=== PATIENT | male | born 1940 | race Two or more races ===

== ENCOUNTER 2017-01-06 11:50 | Inpatient (IN) | payer MEDICARE, MEDICAID ==
[~2017-01-06] VITALS: Ht 165.1 cm; Wt 80.7 kg
[~2017-01-06 11:50] MED LIST: ACTOS15 MG ORAL; AMARYL4 MG ORAL; AMLODIPINE-BEN1 EAC1 ORAL; CRESTOR20 MG ORAL; GABAPENTIN800 MG ORAL; HYDROCHLOROTH12.5 MG ORAL; JANUVIA100 MG ORAL; LOTREL 10-40 M1 EACH PO; METFORMIN HCL750 MG ORAL; PAMELOR10 MG ORAL; PRAVASTATIN SOD80 M1 PO; TAMSULOSIN HCL0.4 MG ORAL
--- NOTE | 2017-01-06 12:19 | Emergency Room Report ---
History of Present Illness General Chief Complaint: Pain Source: Patient (DONAL BACA D.O.) Present Illness HPI Patient presents with complaints of abdominal bloating and discomfort reports pain a 5/10 pressure in sensation patient also having low back discomfort and pain points to the lower back region up to the bilateral flank Reports increased pain with movement patient was at primary physician office last week was put on antibiotics for a possible UTI however he is not sure about that Denies any vomiting or diarrhea denies any recent travel Denies any chest pain or shortness of breath denies any focal weakness (DONAL BACA D.O.) Allergies: Coded Allergies: ATORVASTATIN CALCIUM (Verified Adverse Reaction, MYAGLIA, 08/25/12) SIMVASTATIN (Verified Adverse Reaction, MYALGIA, 08/25/12) Patient History Past Medical History: see triage record Pertinent Family History: none Reviewed Nursing Documentation: PMH: Agreed, PSxH: Agreed (DONAL BACA D.O.) Nursing Documentation-PMH Past Medical History: No History, Except For Hx Hypertension: Yes Hx Asthma: No Hx Diabetes: Yes Hx Cancer: No Hx Gastrointestinal Problems: Yes Hx Neurological Problems: Yes Hx Peripheral Neuropathy: Yes Hx Headaches: Yes (DONAL BACA D.O.) Review of Systems All Other Systems: negative except mentioned in HPI (DONAL BACA D.O.) Physical Exam Vital Signs Date Time Temp Pulse Resp B/P (MAP) Pulse Ox O2 Delivery O2 Flow Rate FiO2 01/06/17 11:54 98.1 69 18 171/69 96 Room Air Sp02 EP Interpretation: reviewed, normal General Appearance: well appearing, no apparent distress Head: normocephalic, atraumatic Eyes: bilateral eye PERRL, bilateral eye EOMI ENT: hearing grossly normal, normal pharynx, TMs + canals normal, uvula midline Neck: full range of motion, supple, no meningismus, no bony tend Respiratory: lungs clear, normal breath sounds, no rhonchi, no respiratory distress, no retraction, no accessory muscle use Cardiovascular #1: normal peripheral pulses, regular rate, rhythm, no edema, no gallop, no JVD, no murmur Gastrointestinal: normal bowel sounds, non tender, soft, no mass, no organomegaly, non-distended, no guarding, no hernia, no pulsatile mass, no rebound Genitourinary: no CVA tenderness Musculoskeletal: normal inspection Neurologic: oriented x3, responsive, translator III-XII nml as tested, motor strength/ tone normal, sensory intact Psychiatric: mood/affect normal Skin: normal color, no rash, warm/dry, palpation normal Lymphatic: normal inspection, no adenopathy (DONAL BACA D.O.) Medical Decision Making Diagnostic Impression: Primary Impression: Renal failure Additional Impressions: Hyperkalemia Metastatic lung cancer (metastasis from lung to other site) ER Course Multiple differentials considered including but not limited to, gastrointestinal , vascular, infectious pathology Patient's blood work reveals abnormal kidney function Potassium is also altered and elevated CT imaging initially was going to be obtained with contrast however given the patient's kidney function is obtained without contrast this can limits vascular findings and differentials Patient otherwise remains hemodynamically stable Potassium is acutely treated in the emergency room CT imaging shows concerning findings of metastatic disease Patient will require further inpatient care And patient admitted for further care Labs Test 01/06/17 12:00 01/06/17 12:21 Urine Color Yellow Urine Appearance Clear Urine pH 6 (4.5-8.0) Urine Specific [place] 1.010 (1.005-1.035) Urine Protein 3+ (NEGATIVE) Urine Glucose (UA) Negative (NEGATIVE) Urine Ketones Negative (NEGATIVE) Urine Occult Blood 1+ (NEGATIVE) Urine Nitrite Negative (NEGATIVE) Urine Bilirubin Negative (NEGATIVE) Urine Urobilinogen Normal MG/DL (0.0-1.0) Urine Leukocyte Esterase 1+ (NEGATIVE) Urine RBC 2-4 /HPF (0 - 0) Urine WBC 2-4 /HPF (0 - 0) Urine Squamous Epithelial Cells Occasional /LPF Urine Bacteria Occasional /HPF (NONE) White Blood Count 6.8 K/UL (4.8-10.8) Red Blood Count 4.51 M/UL (4.70-6.10) Hemoglobin 13.3 G/DL (14.2-18.0) Hematocrit 40.6 % (42.0-52.0) Mean Corpuscular Volume 90 FL (80-99) Mean Corpuscular Hemoglobin 29.4 PG (27.0-31.0) Mean Corpuscular Hemoglobin Concent 32.7 G/DL (32.0-36.0) Red Cell Distribution Width 13.4 % (11.6-14.8) Platelet Count 212 K/UL (150-450) Mean Platelet Volume 9.0 FL (6.5-10.1) Neutrophils (%) (Auto) 69.3 % (45.0-75.0) Lymphocytes (%) (Auto) 15.3 % (20.0-45.0) Monocytes (%) (Auto) 10.8 % (1.0-10.0) Eosinophils (%) (Auto) 3.9 % (0.0-3.0) Basophils (%) (Auto) 0.7 % (0.0-2.0) Prothrombin Time 10.4 SEC (9.30-11.50) Prothromb Time International Ratio 1.0 (0.9-1.1) Activated Partial Thromboplast Time 26 SEC (23-33) Sodium Level 137 mEQ/L (135-145) Potassium Level 5.1 mEQ/L (3.4-4.9) Chloride Level 98 mEQ/L (98-107) Carbon Dioxide Level 27 mEQ/L (20-30) Anion Gap 12 (5-15) Blood Urea Nitrogen 37 mg/dL (7-23) Creatinine 1.7 mg/dL (0.7-1.2) Estimat Glomerular Filtration Rate mL/min (>60) Glucose Level 195 mg/dL (74-106) Calcium Level 9.5 mg/dL (8.6-10.2) Total Bilirubin 0.4 mg/dL (0.0-1.2) Aspartate Amino Transf (AST/SGOT) 41 U/L (5-40) Alanine Aminotransferase (ALT/SGPT) 52 U/L (3-41) Alkaline Phosphatase 293 U/L (40-129) Total Creatine Kinase 44 U/L (38-174) Creatine Kinase MB < 1.5 ng/mL (< 6.7) Creatine Kinase MB Relative Index Troponin I < 0.30 ng/mL (<=0.30) Pro-B-Type Natriuretic Peptide 124 pg/mL (0-125) Total Protein 7.9 g/dL (6.6-8.7) Albumin 3.9 g/dL (3.5-5.2) Globulin 4.0 g/dL Albumin/Globulin Ratio 0.9 (1.0-2.7) Lipase 73 U/L (< 60) (DONAL BACA D.O.) ER Course Received signout 76-year-old male complaining of generalized abdominal pain Labs revealing mild hyperkalemia and acute renal failure CT abdomen pelvis performed No acute intra-abdominal surgical pathology, however suspicion of metastatic neoplasm involving the lungs Patient still complaining of abdominal pain, morphine given Patient will be admitted to floor (Hebert Martinez M.D.) Rhythm Strip Diag. Results EP Interpretation: yes Rate: 66 Rhythm: NSR, no PVC's, no ectopy (DONAL BACA D.O.) Chest X-Ray Diagnostic Results Chest X-Ray Diagnostic Results : Chest X-Ray Ordered: Yes # of Views/Limited/Complete: 1 View Indication: Chest Pain EP Interpretation: Yes Interpretation: no consolidation, no effusion, no pneumothorax Impression: No acute disease Electronically Signed by: Donal Baca DO (DONAL BACA D.O.) CT/MRI/US Diagnostic Results CT/MRI/US Diagnostic Results : Impression CT abdomen pelvis:Impression: Suspicion of metastatic neoplasm involving the lungs with multiple nodules seen. Contrast-enhanced CT of the chest is suggested for further evaluation. 1.6 cm hyperdense nodule in the left kidney. Proteinaceous cyst versus solid lesion. Contrast CT or MR recommended. Prostate hypertrophy. Bilateral inguinal hernias containing fat. Hiatal hernia. Thickened gallbladder wall nonspecific in nature. (DONAL BACA D.O.) Last Vital Signs Date Time Temp Pulse Resp B/P (MAP) Pulse Ox O2 Delivery O2 Flow Rate FiO2 01/06/17 11:54 98.1 69 18 171/69 96 Room Air Status: improved (DONAL BACA D.O.) Disposition: ADMITTED INPATIENT Condition: Serious DONAL BACA D.O. Jan 06, 2017 12:19 Hebert Martinez M.D. Jan 06, 2017 14:19
[2017-01-06 12:28] LABS: APPEARANCE,URINE CLEAR; KETONES,URINE NEGATIVE (NEGATIVE); LEUKOCYTE ESTERASE ,URINE 1+ (NEGATIVE); NITRITE,URINE NEGATIVE (NEGATIVE); PH,URINE 6 (4.5-8.0); PROTEIN,URINE 3+ (NEGATIVE); UROBILINOGEN,URINE NORMAL MG/DL (0.0-1.0)
[2017-01-06 12:35] LABS: BACTERIA,URINE OCCASIONAL /HPF; SQUAMOUS EPITHELIAL CELL,UR OCCASIONAL /LPF (NONE/OCC)
[2017-01-06 12:39] LABS: BASOPHILS % (AUTO) 0.7 % (0.0-2.0); EOSINOPHILS % (AUTO) 3.9 % (0.0-3.0); LYMPHOCYTES % (AUTO) 15.3 % (20.0-45.0); MEAN CORPUSCULAR HEMOGLOBIN 29.4 PG (27.0-31.0); MEAN CORPUSCULAR HGB CONC 32.7 G/DL (32.0-36.0); MEAN CORPUSCULAR VOLUME 90 FL (80-99); MONOCYTES % (AUTO) 10.8 % (1.0-10.0); NEUTROPHILS % (AUTO) 69.3 % (45.0-75.0); PLATELET COUNT 212 K/UL (150-450); RED BLOOD COUNT 4.51 M/UL (4.70-6.10); RED CELL DISTRIBUTION WIDTH 13.4 % (11.6-14.8); WHITE BLOOD COUNT 6.8 K/UL (4.8-10.8)
[2017-01-06 12:40] VITALS: BP 122/59
[2017-01-06] MEDS ORDERED: TRULICITY1.5 MG/0.5 SQ (12:43)
[2017-01-06] MEDS ORDERED: RANITIDINE HCL150 MG ORAL (12:43)
--- NOTE | 2017-01-06 12:46 | Diagnostic Imaging Report ---
Indication: Dyspnea Comparison: 08/25/12 A single view chest radiograph was obtained. Findings: No definite infiltrate or pulmonary vascular congestion identified. The heart is enlarged. The aorta is mildly enlarged consistent with atherosclerotic vascular disease. The bones are osteopenic. Impression: No acute disease
[2017-01-06 12:47] LABS: PROTHROMBIN TIME 10.4 SEC (9.30-11.50)
[2017-01-06 12:51] LABS: TROPONIN I < 0.30 ng/mL (<=0.30)
[2017-01-06 12:52] LABS: ALANINE AMINOTRANSFERASE 52 U/L (3-41); ALBUMIN/GLOBULIN RATIO 0.9 (1.0-2.7); ANION GAP 12 (5-15); ASPARTATE AMINO TRANSFERASE 41 U/L (5-40); CALCIUM 9.5 mg/dL (8.6-10.2); CARBON DIOXIDE 27 mEQ/L (20-30); CHLORIDE 98 mEQ/L (98-107); CREATININE 1.7 mg/dL (0.7-1.2); HEMOLYSIS 1; LIPASE 73 U/L (< 60); POTASSIUM 5.1 mEQ/L (3.4-4.9); SODIUM 137 mEQ/L (135-145); TOTAL PROTEIN 7.9 g/dL (6.6-8.7)
[2017-01-06 13:03] LABS: CKMB < 1.5 ng/mL (< 6.7)
[2017-01-06] MEDS ORDERED: Sodium Polystyrene Sulfonate 15gm Powder ORAL ONE (13:15)
--- NOTE | 2017-01-06 14:14 | Diagnostic Imaging Report ---
Indication: Abdominal pain Technique: Continuous helical transaxial imaging of the abdomen and pelvis was obtained from the lung bases to the pubic symphysis. No intravenous contrast was administered. Coronal 2-D reformats were also obtained. Total Dose length Product (DLP): [address] Dose Index Volume (CTDIvol): 18.4, 0.15 mGy Comparison: none Findings: There are multiple nodules within the visualized portions of the lower lung field. These are suspicious for metastatic neoplasm. Formal CT of the chest is suggested. The heart is enlarged. The liver is nodular and enlarged. Gallbladder wall is prominent. There is no nephrolithiasis, ascites or hydronephrosis. The prostate is enlarged measuring 5.6 x 6.7 x 5.5 cm. Bilateral inguinal hernias containing fat are noted. The appendix is normal. Diverticula noted in the colon. No evidence of bowel obstruction, free fluid or free air. In the left kidney there is a hyperdense nodule measuring 1.7 cm. This could be a proteinaceous or hemorrhagic cyst. This could be a solid focus or tumor. Further evaluation is recommended. In general the current study is limited with regard to evaluation of solid organs show inadequately evaluated without intravenous contrast. Small hiatal hernia is present. Impression: Suspicion of metastatic neoplasm involving the lungs with multiple nodules seen. Contrast-enhanced CT of the chest is suggested for further evaluation. 1.6 cm hyperdense nodule in the left kidney. Proteinaceous cyst versus solid lesion. Contrast CT or MR recommended. Prostate hypertrophy. Bilateral inguinal hernias containing fat. Hiatal hernia. Thickened gallbladder wall nonspecific in nature. The CT scanner at [facility] is accredited by the [employer] and the scans are performed using dose optimization techniques as appropriate to a performed exam including Automatic Exposure control.
[2017-01-06] MEDS ORDERED: Morphine Sulfate 4mg/ml Inj IVP ONE (14:30)
[2017-01-06] MEDS ORDERED: Acetaminophen 500mg (ES) tab ORAL ONE (14:45)
[2017-01-06] MEDS ORDERED: Miralax 17gm pkt ORAL PRN (15:30)
[2017-01-06] MEDS ORDERED: Morphine Sulfate 2mg/ml Inj IVP PRN (15:30)
[2017-01-06] MEDS ORDERED: Mylanta II UD 30ml ORAL PRN (15:30)
[2017-01-06] MEDS ORDERED: DuoNeb 0.5-3(2.5)mg/3ml neb HHN PRN (15:30)
[2017-01-06] MEDS ORDERED: Zolpidem 5mg tab ORAL PRN (15:30)
[2017-01-06 16:00] VITALS: BP 150/77
[2017-01-06] MEDS: NovoLOG Insulin Flexpen SUBQ SCH ×2 (16:30→20:57)
[2017-01-06 18:35] LABS: ANION GAP 13 (5-15); CALCIUM 9.4 mg/dL (8.6-10.2); CARBON DIOXIDE 27 mEQ/L (20-30); CHLORIDE 100 mEQ/L (98-107); CREATININE 1.4 mg/dL (0.7-1.2); HEMOLYSIS 0; POTASSIUM 4.4 mEQ/L (3.4-4.9); SODIUM 140 mEQ/L (135-145)
--- NOTE | 2017-01-06 19:43 | History & Physical ---
History and Physical History & Physicial Dictated for Int Med-Dr Sibley no. [id number]. DESMOND JAMES Jan 06, 2017 19:43
[2017-01-06 19:55] VITALS: BP 133/67
[2017-01-06] MEDS: Heparin 5000 units/ml inj SUBQ SCH (20:57)
[2017-01-06] MEDS ORDERED: Tamsulosin 0.4mg cap ORAL SCH (21:00)
[2017-01-06 23:28] LABS: PSA TOTAL 3.2 ng/mL (< 4.5)
[2017-01-06 23:52] VITALS: BP 142/73
[2017-01-07 02:10] LABS: BAND NEUTROPHILS % (MANUAL) 3 % (0-8); EOSINOPHILS % (MANUAL) 4 % (0-3); LYMPHOCYTES % (MANUAL) 16 % (20-45); NEUTROPHILS % (MANUAL) 69 % (45-75); TOTAL CELLS COUNTED 100
[2017-01-07 02:11] LABS: BASOPHILS % (MANUAL) 0 % (0-2); PLATELET ESTIMATE ADEQUATE; PLATELET MORPHOLOGY NORMAL
[2017-01-07 02:27] LABS: PATH BLOOD SMEAR/OMC SENT TO PATHOLOGIST
[2017-01-07 04:04] VITALS: BP 131/54
--- NOTE | 2017-01-07 04:45 | History and Physical Report ---
DATE OF ADMISSION: 01/06/2017 Chief Complaint: The patient is a 76-year-old male, who presents with complaint of abdominal pain and bloating for two weeks. History Of Present Illness: Began two weeks prior to admission, the patient began to experience abdominal pain and bloating. The patient denies nausea, vomiting, diarrhea, or constipation. The patient presented to [place] emergency room. The patient is admitted for abdominal distention to rule out small bowel obstruction. PAST MEDICAL HISTORY: Significant for: 1. Type 2 diabetes. 2. Hypertension. 3. Hypercholesterolemia. PAST SURGICAL HISTORY: Significant for: 1. Bilateral cataract surgery. 2. Colonoscopy three years ago. CURRENT MEDICATIONS: 1. Norvasc/benazepril 10/40 one tab p.o. daily. 2. Trulicity 1.5 mg subcutaneously daily. 3. Glimepiride 4 mg one tablet p.o. twice daily. 4. Hydrochlorothiazide 12.5 mg one tablet p.o. daily. 5. Metformin 750 mg one tablet p.o. twice daily. 6. Zantac 300 mg one tablet p.o. daily. 7. Crestor 20 mg one tablet p.o. daily. 8. Januvia 100 mg one tablet p.o. daily. 9. Flomax 0.4 mg one tablet p.o. at bedtime. ALLERGIES: To Lipitor and simvastatin. Social History: The patient is . The patient lives with his and his daughter. The patient denies tobacco use having quit 30 years ago. The patient admits to rare alcohol use. Review Of Systems: Constitutional: The patient denies weight loss or weight gain. The patient denies fevers or chills. HEENT: The patient denies ear or throat pain. The patient denies headache. Cardiovascular: The patient denies palpitations or chest pain. Chest: The patient denies wheeze or shortness of breath. Abdomen: The patient complains of abdominal pain and distention as above. The patient denies nausea, vomiting, diarrhea, or constipation. Genitourinary: The patient denies dysuria or increased frequency of urination. Neuromuscular: The patient denies seizures or generalized weakness. PHYSICAL EXAMINATION: Vital Signs: Temperature 98.1 degrees, respirations 18, pulse 69, and blood pressure 131/69. General: The patient is a well-developed and well-nourished male, in no apparent distress. HEENT: Eyes, pupils are equal and responsive to light and accommodation. Extraocular movements are intact. NECK: Supple without lymphadenopathy. Chest: Lungs are clear to auscultation bilaterally without wheezes or rales. Cardiovascular: Regular rate. S1 and S2 are normal without murmurs, rubs, or gallops. Abdomen: Soft and distended with decreased bowel sounds. No evidence of hepatosplenomegaly. Currently, no rebound or guarding noted. EXTREMITIES: Negative for clubbing, cyanosis, or edema. RECTAL/GENITAL: Refused. Neurologic: Cranial nerves II to XII are grossly intact without focal deficits. Motor strength is 5/5 bilaterally. Deep tendon reflexes are 2+ plantar. Laboratory Studies: WBC 6.8, hemoglobin 13.3, hematocrit 40.6, and platelets 212,000. Sodium 137, potassium 5.1, chloride 98, CO2 27, BUN 37, creatinine 1.7, and glucose 195. AST elevated at 41, ALT elevated at 52, and alkaline phosphatase elevated at 293. The CT scan of the abdomen is pending. ASSESSMENT: This is a 76-year-old male. 1. Abdominal pain. 2. Abdominal distention. 3. Elevated liver function tests. 4. Multiple lung masses per CT scan. 5. Renal failure. 6. Diabetes type 2. 7. Hypertension. 8. Hypercholesterolemia. TREATMENT: 1. Abdominal pain/abdominal bloating. A Gastroenterology consultation was obtained with Dr. Zelalem March. Given presence of lung masses on preliminary CT scan result, this may be metastatic cancer. Differential diagnosis includes colon versus renal carcinoma. 2. Multiple lung masses. An Oncology consultation was obtained with Dr. Geiger. The patient will require tissue biopsy. We will follow recommendations of Oncology. Lung mass appeared to be metastatic in nature. 3. Renal failure. This may be secondary to renal carcinoma versus acute renal failure. 4. Diabetes type 2. Continue Trulicity , glimepiride, and metformin as above. Metformin may be suspended secondary to elevated renal function test. 5. Hypertension. Continue Norvasc and benazepril as above. 6. Hypercholesterolemia. Continue Crestor as above. Manuelito Kimball M.D. DR: VAL JOB#: [id number] CC:
[2017-01-07] MEDS: NovoLOG Insulin Flexpen SUBQ SCH ×4 (06:09→21:00)
[2017-01-07 06:55] LABS: BASOPHILS % (AUTO) 0.5 % (0.0-2.0); EOSINOPHILS % (AUTO) 4.7 % (0.0-3.0); LYMPHOCYTES % (AUTO) 20.1 % (20.0-45.0); MEAN CORPUSCULAR HEMOGLOBIN 29.3 PG (27.0-31.0); MEAN CORPUSCULAR HGB CONC 32.4 G/DL (32.0-36.0); MEAN CORPUSCULAR VOLUME 90 FL (80-99); MEAN PLATELET VOLUME 9.3 FL (6.5-10.1); MONOCYTES % (AUTO) 11.9 % (1.0-10.0); NEUTROPHILS % (AUTO) 62.9 % (45.0-75.0); PLATELET COUNT 234 K/UL (150-450); RED BLOOD COUNT 4.72 M/UL (4.70-6.10); RED CELL DISTRIBUTION WIDTH 13.7 % (11.6-14.8); WHITE BLOOD COUNT 6.5 K/UL (4.8-10.8)
[2017-01-07 07:18] LABS: ALANINE AMINOTRANSFERASE 47 U/L (3-41); ALBUMIN/GLOBULIN RATIO 0.8 (1.0-2.7); ANION GAP 13 (5-15); ASPARTATE AMINO TRANSFERASE 38 U/L (5-40); CALCIUM 9.4 mg/dL (8.6-10.2); CARBON DIOXIDE 26 mEQ/L (20-30); CHLORIDE 101 mEQ/L (98-107); CHOLESTEROL 143 mg/dL (< 200); CHOLESTEROL/HDL RATIO 4.6 (3.3-4.4); CREATININE 1.4 mg/dL (0.7-1.2); HEMOLYSIS 2; LDL CHOLESTEROL (CALC.) 64 mg/dL (60-99); POTASSIUM 4.5 mEQ/L (3.4-4.9); SODIUM 140 mEQ/L (135-145); TOTAL PROTEIN 7.9 g/dL (6.6-8.7)
[2017-01-07 08:00] VITALS: BP 139/73
[2017-01-07] MEDS: Heparin 5000 units/ml inj SUBQ SCH ×2 (08:25→22:24)
[2017-01-07] MEDS ORDERED: Sodium Polystyrene Sulfonate 15gm Powder ORAL SCH (09:00)
--- NOTE | 2017-01-07 10:22 | GI Initial Consult Note ---
Gregg,Janie Wanoi N.P. 01/07/17 1022: History of Present Illness General Date patient seen: Jan 07, 2017 Time patient seen: 10:02 Reason for Hospitalization: Pain Referring physician: LELO FRANK Reason for Consultation: ABDOMINAL DISTENTION Present Illness HPI The patient is a 76-year-old male, who presents with complaint of abdominal pain and bloating for two weeks. Began two weeks prior to admission, the patient began to experience abdominal pain and bloating. The patient denies nausea, vomiting, diarrhea, or constipation. The patient presented to [facility] emergency room. The patient is admitted for abdominal distention to rule out small bowel obstruction. GI Consult. HPI as noted above. GI consulted for constipation and abdominal bloating with concern for bowel obstruction. Pt seen on floor with family at bedside A&Ox4 NAD with no active s/sx of N/V/D. Abdomen noted to be distended, tympanic and non tender all quads. Denies anhy abdominal pain at this time. Pt had BM this morning after given Kayexalate. CT AP shows multiple lung nodules, hypertrophic prostate and hiatal hernia, see full report. Per patient family, he's had a colonoscopy at [facility] approximately 3 years ago. Social drinker. Labs show elevated CEA and CA 19-9. Home Meds Reported Medications Dulaglutide (Trulicity) 1.5 Mg/0.5 Ml Pen.injctr, 1.5 MG SQ, EA 01/06/17 Ranitidine Hcl* (ZANTAC*) 150 Mg Tablet, 300 MG ORAL DAILY, TAB 01/06/17 Tamsulosin Hcl (TAMSULOSIN HCL*) 0.4 Mg Cap.er.24h, 0.4 MG ORAL BEDTIME, CAP 08/06/15 Rosuvastatin Calcium* (CRESTOR*) 20 Mg Tablet, 20 MG ORAL DAILY, TAB 08/06/15 Gabapentin* (GABAPENTIN*) 800 Mg Tablet, 800 MG ORAL THREE TIMES A DAY, #21 CAP 08/25/12 Amlodipine Besylate/Benazepril 10-40 Mg (LOTREL 10-40 MG CAPSULE) 1 Each Capsule , 1 CAP PO DAILY 08/25/12 Metformin Hcl (METFORMIN HCL ER) 750 Mg Tab.er.24h, 750 MG ORAL BID, TAB 08/25/12 Hydrochlorothiazide* (HYDROCHLOROTHIAZIDE*) 12.5 Mg Tablet, 12.5 MG ORAL DAILY, #30 TAB 08/25/12 Sitagliptin (Januvia) 100 Mg Tab, 100 MG ORAL DAILY, #30 TAB 08/25/12 Glimepiride* (AMARYL*) 4 Mg Tablet, 4 MG ORAL BID, #30 TAB 08/25/12 Discontinued Reported Medications Amlodipine Besylate/Benazepril 10-40 Mg (AMLODIPINE-BENAZEPRIL 10-40 MG) 1 Each Capsule, 1 CAP ORAL DAILY, CAP 08/06/15 Med list reviewed/reconciled: Yes Allergies: Coded Allergies: ATORVASTATIN CALCIUM (Verified Adverse Reaction, MYAGLIA, 08/25/12) SIMVASTATIN (Verified Adverse Reaction, MYALGIA, 08/25/12) Patient History PMH Narrative PAST MEDICAL HISTORY: Significant for: 1. Type 2 diabetes. 2. Hypertension. 3. Hypercholesterolemia. PAST SURGICAL HISTORY: Significant for: 1. Bilateral cataract surgery. 2. Colonoscopy three years ago. Social History: Reports: alcohol use Review of Systems All Other Systems: negative except mentioned in HPI Physical Exam Vital Signs Date Time Temp Pulse Resp B/P (MAP) Pulse Ox O2 Delivery O2 Flow Rate FiO2 01/06/17 11:54 98.1 69 18 171/69 96 Room Air Sp02 EP Interpretation: reviewed Labs Laboratory Tests Test 01/06/17 12:00 01/06/17 12:21 01/06/17 17:50 01/06/17 22:50 Urine Color Yellow Urine Appearance Clear Urine pH 6 (4.5-8.0) Urine Specific [facility] 1.010 (1.005-1.035) Urine Protein 3+ (NEGATIVE) H Urine Glucose (UA) Negative (NEGATIVE) Urine Ketones Negative (NEGATIVE) Urine Occult Blood 1+ (NEGATIVE) H Urine Nitrite Negative (NEGATIVE) Urine Bilirubin Negative (NEGATIVE) Urine Urobilinogen Normal MG/DL (0.0-1.0) Urine Leukocyte Esterase 1+ (NEGATIVE) H Urine RBC 2-4 /HPF (0 - 0) H Urine WBC 2-4 /HPF (0 - 0) Urine Squamous Epithelial Cells Occasional /LPF Urine Bacteria Occasional /HPF (NONE) White Blood Count 6.8 K/UL (4.8-10.8) Red Blood Count 4.51 M/UL (4.70-6.10) L Hemoglobin 13.3 G/DL (14.2-18.0) L Hematocrit 40.6 % (42.0-52.0) L Mean Corpuscular Volume 90 FL (80-99) Mean Corpuscular Hemoglobin 29.4 PG (27.0-31.0) Mean Corpuscular Hemoglobin Concent 32.7 G/DL (32.0-36.0) Red Cell Distribution Width 13.4 % (11.6-14.8) Platelet Count 212 K/UL (150-450) Mean Platelet Volume 9.0 FL (6.5-10.1) Neutrophils (%) (Auto) 69.3 % (45.0-75.0) Lymphocytes (%) (Auto) 15.3 % (20.0-45.0) L Monocytes (%) (Auto) 10.8 % (1.0-10.0) H Eosinophils (%) (Auto) 3.9 % (0.0-3.0) H Basophils (%) (Auto) 0.7 % (0.0-2.0) Differential Total Cells Counted 100 Neutrophils % (Manual) 69 % (45-75) Lymphocytes % (Manual) 16 % (20-45) L Monocytes % (Manual) 8 % (1-10) Eosinophils % (Manual) 4 % (0-3) H Basophils % (Manual) 0 % (0-2) Band Neutrophils 3 % (0-8) Platelet Estimate Adequate Platelet Morphology Normal Red Blood Cell Morphology Normal Prothrombin Time 10.4 SEC (9.30-11.50) Prothromb Time International Ratio 1.0 (0.9-1.1) Activated Partial Thromboplast Time 26 SEC (23-33) Sodium Level 137 mEQ/L (135-145) 140 mEQ/L (135-145) Potassium Level 5.1 mEQ/L (3.4-4.9) H 4.4 mEQ/L (3.4-4.9) Chloride Level 98 mEQ/L (98-107) 100 mEQ/L (98-107) Carbon Dioxide Level 27 mEQ/L (20-30) 27 mEQ/L (20-30) Anion Gap 12 (5-15) 13 (5-15) Blood Urea Nitrogen 37 mg/dL (7-23) H 33 mg/dL (7-23) H Creatinine 1.7 mg/dL (0.7-1.2) H 1.4 mg/dL (0.7-1.2) H Estimat Glomerular Filtration Rate mL/min (>60) mL/min (>60) Glucose Level 195 mg/dL (74-106) H 123 mg/dL (74-106) H Calcium Level 9.5 mg/dL (8.6-10.2) 9.4 mg/dL (8.6-10.2) Total Bilirubin 0.4 mg/dL (0.0-1.2) Aspartate Amino Transf (AST/SGOT) 41 U/L (5-40) H Alanine Aminotransferase (ALT/SGPT) 52 U/L (3-41) H Alkaline Phosphatase 293 U/L (40-129) H Total Creatine Kinase 44 U/L (38-174) Creatine Kinase MB < 1.5 ng/mL (< 6.7) Creatine Kinase MB Relative Index Troponin I < 0.30 ng/mL (<=0.30) Pro-B-Type Natriuretic Peptide 124 pg/mL (0-125) Total Protein 7.9 g/dL (6.6-8.7) Albumin 3.9 g/dL (3.5-5.2) Globulin 4.0 g/dL Albumin/Globulin Ratio 0.9 (1.0-2.7) L Lipase 73 U/L (< 60) H CA 19-9 Antigen 67.68 U/mL (< 37) H Prostate Specific Antigen 3.2 ng/mL (< 4.5) Test 01/07/17 04:45 White Blood Count 6.5 K/UL (4.8-10.8) Red Blood Count 4.72 M/UL (4.70-6.10) Hemoglobin 13.8 G/DL (14.2-18.0) L Hematocrit 42.6 % (42.0-52.0) Mean Corpuscular Volume 90 FL (80-99) Mean Corpuscular Hemoglobin 29.3 PG (27.0-31.0) Mean Corpuscular Hemoglobin Concent 32.4 G/DL (32.0-36.0) Red Cell Distribution Width 13.7 % (11.6-14.8) Platelet Count 234 K/UL (150-450) Mean Platelet Volume 9.3 FL (6.5-10.1) Neutrophils (%) (Auto) 62.9 % (45.0-75.0) Lymphocytes (%) (Auto) 20.1 % (20.0-45.0) Monocytes (%) (Auto) 11.9 % (1.0-10.0) H Eosinophils (%) (Auto) 4.7 % (0.0-3.0) H Basophils (%) (Auto) 0.5 % (0.0-2.0) Sodium Level 140 mEQ/L (135-145) Potassium Level 4.5 mEQ/L (3.4-4.9) Chloride Level 101 mEQ/L (98-107) Carbon Dioxide Level 26 mEQ/L (20-30) Anion Gap 13 (5-15) Blood Urea Nitrogen 29 mg/dL (7-23) H Creatinine 1.4 mg/dL (0.7-1.2) H Estimat Glomerular Filtration Rate mL/min (>60) Glucose Level 120 mg/dL (74-106) H Hemoglobin A1c 9.0 % (< 6.0) H Calcium Level 9.4 mg/dL (8.6-10.2) Total Bilirubin 0.4 mg/dL (0.0-1.2) Aspartate Amino Transf (AST/SGOT) 38 U/L (5-40) Alanine Aminotransferase (ALT/SGPT) 47 U/L (3-41) H Alkaline Phosphatase 301 U/L (40-129) H Total Protein 7.9 g/dL (6.6-8.7) Albumin 3.7 g/dL (3.5-5.2) Globulin 4.2 g/dL Albumin/Globulin Ratio 0.8 (1.0-2.7) L Triglycerides Level 240 mg/dL (< 150) H Cholesterol Level 143 mg/dL (< 200) LDL Cholesterol 64 mg/dL (60-99) HDL Cholesterol 31 mg/dL (> 60) Cholesterol/HDL Ratio 4.6 (3.3-4.4) H Carcinoembryonic Antigen 5.5 ng/mL H Thyroid Stimulating Hormone (TSH) 2.280 uIU/mL (0.300-4.500) Anti-Cardiolipin IgM Antibody Pending General Appearance: well appearing, no apparent distress, obese Head: normocephalic EENT: PERRL/EOMI, normal ENT inspection Neck: full range of motion, thyroid normal Respiratory: normal breath sounds, no respiratory distress Cardiovascular: normal rate Gastrointestinal: non tender, soft, normal bowel sounds Rectal: deferred Genitourinary: no CVA tenderness Musculoskeletal: back normal Neurologic: normal inspection, alert, oriented x3, responsive Psychiatric: normal inspection, judgement/insight normal, memory normal Skin: normal color Lymphatic: normal inspection, no adenopathy Current Medications Current Medications Medications (Trade) Dose Ordered Sig/Sylvie Route PRN Reason Start Time Stop Time Status Last Admin Dose Admin Acetaminophen (Tylenol) 650 mg Q4H PRN ORAL fever 01/06/17 15:30 02/05/17 15:29 Al Hydroxide/Mg Hydroxide (Mylanta II) 30 ml Q6H PRN ORAL dyspepsia 01/06/17 15:30 02/05/17 15:29 01/07/17 03:35 Albuterol/ Ipratropium (DuoNeb 0.5-3(2.5)mg/3ml) 3 ml Q6H PRN HHN dyspnea 01/06/17 15:30 01/11/17 15:29 Amlodipine Besylate (Norvasc) 10 mg DAILY ORAL 01/07/17 09:00 02/06/17 08:59 01/07/17 08:25 Clonidine HCl (Catapres) 0.1 mg Q4H PRN ORAL For High Blood Pressure 01/06/17 15:30 02/05/17 15:29 Dextrose (Dextrose 50%) STAT PRN IV Hypoglycemia 01/06/17 15:30 02/05/17 15:29 Gabapentin (Neurontin) 800 mg THREE TIMES A DAY ORAL 01/06/17 18:00 02/05/17 17:59 01/07/17 08:25 Heparin Sodium (Porcine) (Heparin 5000 units/ml) 5,000 units EVERY 12 HOURS SUBQ 01/06/17 21:00 02/05/17 20:59 01/06/17 20:57 Insulin Aspart (NovoLOG) BEFORE MEALS AND HS SUBQ 01/06/17 16:30 02/05/17 16:29 Morphine Sulfate (Morphine Sulfate) 1 mg Q4H PRN IVP For Pain 01/06/17 15:30 01/13/17 15:29 Ondansetron HCl (Zofran) 4 mg Q6H PRN IVP Nausea & Vomiting 01/06/17 15:30 02/05/17 15:29 Polyethylene Glycol (Miralax) 17 gm HSPRN PRN ORAL Constipation 01/06/17 15:30 02/05/17 15:29 Sodium Polystyrene Sulfonate (Kayexalate) 45 gm DAILY ORAL 01/07/17 09:00 01/10/17 08:59 01/07/17 08:23 Tamsulosin HCl (Flomax) 0.4 mg BEDTIME ORAL 01/06/17 21:00 02/05/17 20:59 01/06/17 20:53 Zolpidem Tartrate (Ambien) 5 mg HSPRN PRN ORAL Insomnia 01/06/17 15:30 01/13/17 15:29 GI: Plan Problems: (1) High serum carbohydrate antigen 19-9 (CA19-9) (2) Diabetes mellitus (3) GERD (gastroesophageal reflux disease) (4) Abdominal distention (5) Elevated CEA Plan CT AP reviewed >> multiple lung nodules. hypertrophic prostate. hiatal hernia , see full report. elevated CEA 5.5 elevated CA19-9 >> 70 s/p colonoscopy at [facility] approx 3 years ago >> will obtain records symptomatic treatment / supportive care fu oncology recs >> CT guided bx of lung nodule bowel regime >> colace + miralax simethicone prn renal DM diet after studies ppi fu labs Discussed with Dr. Pascual. Thank you for referring this patient, we will follow. ESAU PASCUAL 01/12/17 0940: History of Present Illness General Reason for Hospitalization: Pain Present Illness Home Meds Reported Medications Dulaglutide (Trulicity) 1.5 Mg/0.5 Ml Pen.injctr, 1.5 MG SQ, EA 01/06/17 Ranitidine Hcl* (ZANTAC*) 150 Mg Tablet, 300 MG ORAL DAILY, TAB 01/06/17 Tamsulosin Hcl (TAMSULOSIN HCL*) 0.4 Mg Cap.er.24h, 0.4 MG ORAL BEDTIME, CAP 08/06/15 Rosuvastatin Calcium* (CRESTOR*) 20 Mg Tablet, 20 MG ORAL DAILY, TAB 08/06/15 Gabapentin* (GABAPENTIN*) 800 Mg Tablet, 800 MG ORAL THREE TIMES A DAY, #21 CAP 08/25/12 Amlodipine Besylate/Benazepril 10-40 Mg (LOTREL 10-40 MG CAPSULE) 1 Each Capsule , 1 CAP PO DAILY 08/25/12 Metformin Hcl (METFORMIN HCL ER) 750 Mg Tab.er.24h, 750 MG ORAL BID, TAB 08/25/12 Hydrochlorothiazide* (HYDROCHLOROTHIAZIDE*) 12.5 Mg Tablet, 12.5 MG ORAL DAILY, #30 TAB 08/25/12 Sitagliptin (Januvia) 100 Mg Tab, 100 MG ORAL DAILY, #30 TAB 08/25/12 Glimepiride* (AMARYL*) 4 Mg Tablet, 4 MG ORAL BID, #30 TAB 08/25/12 Discontinued Reported Medications Amlodipine Besylate/Benazepril 10-40 Mg (AMLODIPINE-BENAZEPRIL 10-40 MG) 1 Each Capsule, 1 CAP ORAL DAILY, CAP 08/06/15 Allergies: Coded Allergies: ATORVASTATIN CALCIUM (Verified Adverse Reaction, MYAGLIA, 08/25/12) SIMVASTATIN (Verified Adverse Reaction, MYALGIA, 08/25/12) GI: Plan Plan The patient was seen and examined at bedside and all new and available data was reviewed in the patients chart. I agree with the above findings, impression and plan. (Patient seen earlier today. Signature stamp does not reflect patient encounter time.). -Christina Burch MDh Minh Zarco Jan 07, 2017 10:22 ESAU PASCUAL Jan 12, 2017 09:40
[2017-01-07] MEDS ORDERED: Simethicone 80mg tab ORAL PRN (10:30)
--- NOTE | 2017-01-07 11:26 | Consultation ---
History of Present Illness General Chief Complaint: Pain Referring physician: LELO FRANK Reason for Consultation: pulmonary nodule Present Illness HPI 76 year old male with pmhx of HTN, DM, presented to ER with complaints of abdominal bloating and discomfort reports pain a 5/10 pressure in sensation patient also having low back discomfort and pain points to the lower back region up to the bilateral flank. Initial evaluation including CT of abdomen showed multiple nodule in lower lobes of lungs. I was asked to evaluate those findings. Allergies: Coded Allergies: ATORVASTATIN CALCIUM (Verified Adverse Reaction, MYAGLIA, 08/25/12) SIMVASTATIN (Verified Adverse Reaction, MYALGIA, 08/25/12) Medication History Scheduled Amlodipine Besylate/Benazepril 10-40 Mg (Lotrel 10-40 Mg Capsule), 1 CAP PO DAILY, (Reported) Amlodipine Besylate/Benazepril 10-40 Mg (Amlodipine-Benazepril 10-40 Mg), 1 CAP ORAL DAILY, (Reported) Gabapentin* (Gabapentin*), 800 MG ORAL THREE TIMES A DAY, (Reported) Glimepiride* (Amaryl*), 4 MG ORAL BID, (Reported) Hydrochlorothiazide* (Hydrochlorothiazide*), 12.5 MG ORAL DAILY, (Reported) Metformin Hcl (Metformin Hcl Er), 750 MG ORAL BID, (Reported) Ranitidine Hcl* (Zantac*), 300 MG ORAL DAILY, (Reported) Rosuvastatin Calcium* (Crestor*), 20 MG ORAL DAILY, (Reported) Sitagliptin (Januvia), 100 MG ORAL DAILY, (Reported) Tamsulosin Hcl (Tamsulosin Hcl*), 0.4 MG ORAL BEDTIME, (Reported) Miscellaneous Medications Dulaglutide (Trulicity), 1.5 MG SQ, (Reported) Patient History Healthcare decision maker Resuscitation status Full Code Advanced Directive on File Past Medical/Surgical History Past Medical/Surgical History: (1) HTN (hypertension) (2) Diabetes (3) Diabetes mellitus Review of Systems All Other Systems: negative except mentioned in HPI Physical Exam General Appearance: WD/WN Lines, tubes and drains: peripheral HEENT: normocephalic Neck: non-tender, normal alignment Respiratory/Chest: chest wall non-tender, lungs clear Breasts: no masses Cardiovascular/Chest: normal rate Abdomen: normal bowel sounds Genitourinary/Rectal: normal genital exam Last 24 Hour Vital Signs Date Time Temp Pulse Resp B/P (MAP) Pulse Ox O2 Delivery O2 Flow Rate FiO2 01/07/17 08:25 71 139/73 01/07/17 08:00 71 01/07/17 08:00 97.2 71 21 139/73 93 Room Air 01/07/17 07:26 70 18 Room Air 01/07/17 04:04 98.2 72 20 131/54 96 Room Air 01/07/17 04:00 70 01/07/17 00:00 73 01/06/17 23:52 97.9 75 21 142/73 95 Room Air 01/06/17 20:00 71 01/06/17 19:55 97.3 70 20 133/67 97 Room Air 01/06/17 16:00 97.8 72 21 150/77 97 Room Air 01/06/17 16:00 69 01/06/17 15:00 71 14 140/68 95 Room Air 01/06/17 12:40 69 19 122/59 96 Room Air 01/06/17 11:54 98.1 69 18 171/69 96 Room Air Laboratory Tests Test 01/06/17 12:00 01/06/17 12:21 01/06/17 17:50 01/06/17 22:50 Urine Color Yellow Urine Appearance Clear Urine pH 6 (4.5-8.0) Urine Specific [place] 1.010 (1.005-1.035) Urine Protein 3+ (NEGATIVE) H Urine Glucose (UA) Negative (NEGATIVE) Urine Ketones Negative (NEGATIVE) Urine Occult Blood 1+ (NEGATIVE) H Urine Nitrite Negative (NEGATIVE) Urine Bilirubin Negative (NEGATIVE) Urine Urobilinogen Normal MG/DL (0.0-1.0) Urine Leukocyte Esterase 1+ (NEGATIVE) H Urine RBC 2-4 /HPF (0 - 0) H Urine WBC 2-4 /HPF (0 - 0) Urine Squamous Epithelial Cells Occasional /LPF Urine Bacteria Occasional /HPF (NONE) White Blood Count 6.8 K/UL (4.8-10.8) Red Blood Count 4.51 M/UL (4.70-6.10) L Hemoglobin 13.3 G/DL (14.2-18.0) L Hematocrit 40.6 % (42.0-52.0) L Mean Corpuscular Volume 90 FL (80-99) Mean Corpuscular Hemoglobin 29.4 PG (27.0-31.0) Mean Corpuscular Hemoglobin Concent 32.7 G/DL (32.0-36.0) Red Cell Distribution Width 13.4 % (11.6-14.8) Platelet Count 212 K/UL (150-450) Mean Platelet Volume 9.0 FL (6.5-10.1) Neutrophils (%) (Auto) 69.3 % (45.0-75.0) Lymphocytes (%) (Auto) 15.3 % (20.0-45.0) L Monocytes (%) (Auto) 10.8 % (1.0-10.0) H Eosinophils (%) (Auto) 3.9 % (0.0-3.0) H Basophils (%) (Auto) 0.7 % (0.0-2.0) Differential Total Cells Counted 100 Neutrophils % (Manual) 69 % (45-75) Lymphocytes % (Manual) 16 % (20-45) L Monocytes % (Manual) 8 % (1-10) Eosinophils % (Manual) 4 % (0-3) H Basophils % (Manual) 0 % (0-2) Band Neutrophils 3 % (0-8) Platelet Estimate Adequate Platelet Morphology Normal Red Blood Cell Morphology Normal Prothrombin Time 10.4 SEC (9.30-11.50) Prothromb Time International Ratio 1.0 (0.9-1.1) Activated Partial Thromboplast Time 26 SEC (23-33) Sodium Level 137 mEQ/L (135-145) 140 mEQ/L (135-145) Potassium Level 5.1 mEQ/L (3.4-4.9) H 4.4 mEQ/L (3.4-4.9) Chloride Level 98 mEQ/L (98-107) 100 mEQ/L (98-107) Carbon Dioxide Level 27 mEQ/L (20-30) 27 mEQ/L (20-30) Anion Gap 12 (5-15) 13 (5-15) Blood Urea Nitrogen 37 mg/dL (7-23) H 33 mg/dL (7-23) H Creatinine 1.7 mg/dL (0.7-1.2) H 1.4 mg/dL (0.7-1.2) H Estimat Glomerular Filtration Rate mL/min (>60) mL/min (>60) Glucose Level 195 mg/dL (74-106) H 123 mg/dL (74-106) H Calcium Level 9.5 mg/dL (8.6-10.2) 9.4 mg/dL (8.6-10.2) Total Bilirubin 0.4 mg/dL (0.0-1.2) Aspartate Amino Transf (AST/SGOT) 41 U/L (5-40) H Alanine Aminotransferase (ALT/SGPT) 52 U/L (3-41) H Alkaline Phosphatase 293 U/L (40-129) H Total Creatine Kinase 44 U/L (38-174) Creatine Kinase MB < 1.5 ng/mL (< 6.7) Creatine Kinase MB Relative Index Troponin I < 0.30 ng/mL (<=0.30) Pro-B-Type Natriuretic Peptide 124 pg/mL (0-125) Total Protein 7.9 g/dL (6.6-8.7) Albumin 3.9 g/dL (3.5-5.2) Globulin 4.0 g/dL Albumin/Globulin Ratio 0.9 (1.0-2.7) L Lipase 73 U/L (< 60) H CA 19-9 Antigen 67.68 U/mL (< 37) H Prostate Specific Antigen 3.2 ng/mL (< 4.5) Test 01/07/17 04:45 White Blood Count 6.5 K/UL (4.8-10.8) Red Blood Count 4.72 M/UL (4.70-6.10) Hemoglobin 13.8 G/DL (14.2-18.0) L Hematocrit 42.6 % (42.0-52.0) Mean Corpuscular Volume 90 FL (80-99) Mean Corpuscular Hemoglobin 29.3 PG (27.0-31.0) Mean Corpuscular Hemoglobin Concent 32.4 G/DL (32.0-36.0) Red Cell Distribution Width 13.7 % (11.6-14.8) Platelet Count 234 K/UL (150-450) Mean Platelet Volume 9.3 FL (6.5-10.1) Neutrophils (%) (Auto) 62.9 % (45.0-75.0) Lymphocytes (%) (Auto) 20.1 % (20.0-45.0) Monocytes (%) (Auto) 11.9 % (1.0-10.0) H Eosinophils (%) (Auto) 4.7 % (0.0-3.0) H Basophils (%) (Auto) 0.5 % (0.0-2.0) Sodium Level 140 mEQ/L (135-145) Potassium Level 4.5 mEQ/L (3.4-4.9) Chloride Level 101 mEQ/L (98-107) Carbon Dioxide Level 26 mEQ/L (20-30) Anion Gap 13 (5-15) Blood Urea Nitrogen 29 mg/dL (7-23) H Creatinine 1.4 mg/dL (0.7-1.2) H Estimat Glomerular Filtration Rate mL/min (>60) Glucose Level 120 mg/dL (74-106) H Hemoglobin A1c 9.0 % (< 6.0) H Calcium Level 9.4 mg/dL (8.6-10.2) Total Bilirubin 0.4 mg/dL (0.0-1.2) Aspartate Amino Transf (AST/SGOT) 38 U/L (5-40) Alanine Aminotransferase (ALT/SGPT) 47 U/L (3-41) H Alkaline Phosphatase 301 U/L (40-129) H Total Protein 7.9 g/dL (6.6-8.7) Albumin 3.7 g/dL (3.5-5.2) Globulin 4.2 g/dL Albumin/Globulin Ratio 0.8 (1.0-2.7) L Triglycerides Level 240 mg/dL (< 150) H Cholesterol Level 143 mg/dL (< 200) LDL Cholesterol 64 mg/dL (60-99) HDL Cholesterol 31 mg/dL (> 60) Cholesterol/HDL Ratio 4.6 (3.3-4.4) H Carcinoembryonic Antigen 5.5 ng/mL H Thyroid Stimulating Hormone (TSH) 2.280 uIU/mL (0.300-4.500) Anti-Cardiolipin IgM Antibody Pending Height (Feet): 5 Height (Inches): 5.00 Weight (Pounds): 178 Medications Current Medications Medications (Trade) Dose Ordered Sig/Sylvie Route PRN Reason Start Time Stop Time Status Last Admin Dose Admin Acetaminophen (Tylenol) 650 mg Q4H PRN ORAL fever 01/06/17 15:30 02/05/17 15:29 01/07/17 10:13 Acetylcysteine (Mucomyst) 600 mg TWICE A DAY ORAL 01/07/17 11:30 01/07/17 21:01 Al Hydroxide/Mg Hydroxide (Mylanta II) 30 ml Q6H PRN ORAL dyspepsia 01/06/17 15:30 02/05/17 15:29 01/07/17 03:35 Albuterol/ Ipratropium (DuoNeb 0.5-3(2.5)mg/3ml) 3 ml Q6H PRN HHN dyspnea 01/06/17 15:30 01/11/17 15:29 Amlodipine Besylate (Norvasc) 10 mg DAILY ORAL 01/07/17 09:00 02/06/17 08:59 01/07/17 08:25 Clonidine HCl (Catapres) 0.1 mg Q4H PRN ORAL For High Blood Pressure 01/06/17 15:30 02/05/17 15:29 Dextrose (Dextrose 50%) STAT PRN IV Hypoglycemia 01/06/17 15:30 02/05/17 15:29 Docusate Sodium (Colace) 100 mg THREE TIMES A DAY ORAL 01/07/17 13:00 02/06/17 12:59 Esomeprazole Sodium (Nexium I.v.) 40 mg ONCE ONCE IVP 01/07/17 12:00 01/07/17 12:01 Gabapentin (Neurontin) 800 mg THREE TIMES A DAY ORAL 01/06/17 18:00 02/05/17 17:59 01/07/17 08:25 Heparin Sodium (Porcine) (Heparin 5000 units/ml) 5,000 units EVERY 12 HOURS SUBQ 01/06/17 21:00 02/05/17 20:59 01/06/17 20:57 Insulin Aspart (NovoLOG) BEFORE MEALS AND HS SUBQ 01/06/17 16:30 02/05/17 16:29 Morphine Sulfate (Morphine Sulfate) 1 mg Q4H PRN IVP For Pain 01/06/17 15:30 01/13/17 15:29 Ondansetron HCl (Zofran) 4 mg Q6H PRN IVP Nausea & Vomiting 01/06/17 15:30 02/05/17 15:29 Polyethylene Glycol (Miralax) 17 gm BEDTIME ORAL 01/07/17 21:00 02/06/17 20:59 Polyethylene Glycol (Miralax) 17 gm HSPRN PRN ORAL Constipation 01/06/17 15:30 02/05/17 15:29 Simethicone (Mylicon) 80 mg QIDPRN PRN ORAL GAS PAIN 01/07/17 10:30 02/06/17 10:29 Sodium Polystyrene Sulfonate (Kayexalate) 45 gm DAILY ORAL 01/07/17 09:00 01/10/17 08:59 01/07/17 08:23 Tamsulosin HCl (Flomax) 0.4 mg BEDTIME ORAL 01/06/17 21:00 02/05/17 20:59 01/06/17 20:53 Zolpidem Tartrate (Ambien) 5 mg HSPRN PRN ORAL Insomnia 01/06/17 15:30 01/13/17 15:29 Assessment/Plan Problem List: (1) Pulmonary nodule ICD Codes: R91.1 - Solitary pulmonary nodule SNOMED: 834555000 (2) Renal failure ICD Codes: N19 - Unspecified kidney failure SNOMED: 72300677 (3) Hyperkalemia ICD Codes: E87.5 - Hyperkalemia SNOMED: 83003367 (4) Abdominal distention ICD Codes: R14.0 - Abdominal distension (gaseous) SNOMED: 89575194 (5) Diabetes mellitus ICD Codes: E11.9 - Type 2 diabetes mellitus without complications SNOMED: 28478808 (6) HTN (hypertension) ICD Codes: I10 - Essential (primary) hypertension SNOMED: 91516827 Assessment/Plan CT chest PPD GI evaluation symptomatic treatment dvt prophylaxis ANURADHA IYER Jan 07, 2017 11:26
[2017-01-07] MEDS ORDERED: Acetylcysteine 20% Soln 4ml ORAL SCH ×2 (11:30→18:00)
--- NOTE | 2017-01-07 11:32 | Pulmonology Progress Note ---
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 borderline high awaiting CT chest PPD skin Subjective Interval Events: no new complains Allergies: Coded Allergies: ATORVASTATIN CALCIUM (Verified Adverse Reaction, MYAGLIA, 08/25/12) SIMVASTATIN (Verified Adverse Reaction, MYALGIA, 08/25/12) Objective Last 24 Hour Vital Signs Date Time Temp Pulse Resp B/P (MAP) Pulse Ox O2 Delivery O2 Flow Rate FiO2 01/07/17 08:25 71 139/73 01/07/17 08:00 71 01/07/17 08:00 97.2 71 21 139/73 93 Room Air 01/07/17 07:26 70 18 Room Air 01/07/17 04:04 98.2 72 20 131/54 96 Room Air 01/07/17 04:00 70 01/07/17 00:00 73 01/06/17 23:52 97.9 75 21 142/73 95 Room Air 01/06/17 20:00 71 01/06/17 19:55 97.3 70 20 133/67 97 Room Air 01/06/17 16:00 97.8 72 21 150/77 97 Room Air 01/06/17 16:00 69 01/06/17 15:00 71 14 140/68 95 Room Air 01/06/17 12:40 69 19 122/59 96 Room Air 01/06/17 11:54 98.1 69 18 171/69 96 Room Air General Appearance: WD/WN HEENT: normocephalic, atraumatic Respiratory/Chest: chest wall non-tender, lungs clear Cardiovascular: normal peripheral pulses, normal rate Abdomen: normal bowel sounds, no organomegaly, no scars Genitourinary: normal external genitalia Skin: no rash, no lesions Laboratory Tests 01/06/17 12:00: Urine Color Yellow, Urine Appearance Clear, Urine pH 6, Urine Specific [place] 1.010, Urine Protein 3+H, Urine Glucose (UA) Negative, Urine Ketones Negative, Urine Occult Blood 1+H, Urine Nitrite Negative, Urine Bilirubin Negative, Urine Urobilinogen Normal, Urine Leukocyte Esterase 1+H, Urine RBC 2-4H, Urine WBC 2-4 , Urine Squamous Epithelial Cells Occasional, Urine Bacteria Occasional 01/06/17 12:21: White Blood Count 6.8, Red Blood Count 4.51L, Hemoglobin 13.3L, Hematocrit 40.6L , Mean Corpuscular Volume 90, Mean Corpuscular Hemoglobin 29.4, Mean Corpuscular Hemoglobin Concent 32.7, Red Cell Distribution Width 13.4, Platelet Count 212, Mean Platelet Volume 9.0, Neutrophils (%) (Auto) 69.3, Lymphocytes (% ) (Auto) 15.3L, Monocytes (%) (Auto) 10.8H, Eosinophils (%) (Auto) 3.9H, Basophils (%) (Auto) 0.7, Differential Total Cells Counted 100, Neutrophils % ( Manual) 69, Lymphocytes % (Manual) 16L, Monocytes % (Manual) 8, Eosinophils % ( Manual) 4H, Basophils % (Manual) 0, Band Neutrophils 3, Platelet Estimate Adequate, Platelet Morphology Normal, Red Blood Cell Morphology Normal, Prothrombin Time 10.4, Prothromb Time International Ratio 1.0, Activated Partial Thromboplast Time 26, Sodium Level 137, Potassium Level 5.1H, Chloride Level 98, Carbon Dioxide Level 27, Anion Gap 12, Blood Urea Nitrogen 37H, Creatinine 1.7H, Estimat Glomerular Filtration Rate , Glucose Level 195H, Calcium Level 9.5, Total Bilirubin 0.4, Aspartate Amino Transf (AST/SGOT) 41H, Alanine Aminotransferase (ALT/SGPT) 52H, Alkaline Phosphatase 293H, Total Creatine Kinase 44, Creatine Kinase MB < 1.5, Creatine Kinase MB Relative Index , Troponin I < 0.30, Pro-B-Type Natriuretic Peptide 124, Total Protein 7.9, Albumin 3.9, Globulin 4.0, Albumin/Globulin Ratio 0.9L, Lipase 73H 01/06/17 17:50: Sodium Level 140, Potassium Level 4.4, Chloride Level 100, Carbon Dioxide Level 27, Anion Gap 13, Blood Urea Nitrogen 33H, Creatinine 1.4H, Estimat Glomerular Filtration Rate , Glucose Level 123H, Calcium Level 9.4 01/06/17 22:50: CA 19-9 Antigen 67.68H, Prostate Specific Antigen 3.2 01/07/17 04:45: White Blood Count 6.5, Red Blood Count 4.72, Hemoglobin 13.8L, Hematocrit 42.6, Mean Corpuscular Volume 90, Mean Corpuscular Hemoglobin 29.3, Mean Corpuscular Hemoglobin Concent 32.4, Red Cell Distribution Width 13.7, Platelet Count 234, Mean Platelet Volume 9.3, Neutrophils (%) (Auto) 62.9, Lymphocytes (%) (Auto) 20.1, Monocytes (%) (Auto) 11.9H, Eosinophils (%) (Auto) 4.7H, Basophils (%) ( Auto) 0.5, Sodium Level 140, Potassium Level 4.5, Chloride Level 101, Carbon Dioxide Level 26, Anion Gap 13, Blood Urea Nitrogen 29H, Creatinine 1.4H, Estimat Glomerular Filtration Rate , Glucose Level 120H, Hemoglobin A1c 9.0H, Calcium Level 9.4, Total Bilirubin 0.4, Aspartate Amino Transf (AST/SGOT) 38, Alanine Aminotransferase (ALT/SGPT) 47H, Alkaline Phosphatase 301H, Total Protein 7.9, Albumin 3.7, Globulin 4.2, Albumin/Globulin Ratio 0.8L, Triglycerides Level 240H, Cholesterol Level 143, LDL Cholesterol 64, HDL Cholesterol 31, Cholesterol/HDL Ratio 4.6H, Carcinoembryonic Antigen 5.5H, Thyroid Stimulating Hormone (TSH) 2.280, Anti-Cardiolipin IgM Antibody [Pending] Current Medications Medications (Trade) Dose Ordered Sig/Sylvie Route PRN Reason Start Time Stop Time Status Last Admin Dose Admin Acetaminophen (Tylenol) 650 mg Q4H PRN ORAL fever 01/06/17 15:30 02/05/17 15:29 01/07/17 10:13 Acetylcysteine (Mucomyst) 600 mg TWICE A DAY ORAL 01/07/17 11:30 01/07/17 21:01 Al Hydroxide/Mg Hydroxide (Mylanta II) 30 ml Q6H PRN ORAL dyspepsia 01/06/17 15:30 02/05/17 15:29 01/07/17 03:35 Albuterol/ Ipratropium (DuoNeb 0.5-3(2.5)mg/3ml) 3 ml Q6H PRN HHN dyspnea 01/06/17 15:30 01/11/17 15:29 Amlodipine Besylate (Norvasc) 10 mg DAILY ORAL 01/07/17 09:00 02/06/17 08:59 01/07/17 08:25 Clonidine HCl (Catapres) 0.1 mg Q4H PRN ORAL For High Blood Pressure 01/06/17 15:30 02/05/17 15:29 Dextrose (Dextrose 50%) STAT PRN IV Hypoglycemia 01/06/17 15:30 02/05/17 15:29 Docusate Sodium (Colace) 100 mg THREE TIMES A DAY ORAL 01/07/17 13:00 02/06/17 12:59 Esomeprazole Sodium (Nexium I.v.) 40 mg ONCE ONCE IVP 01/07/17 12:00 01/07/17 12:01 Gabapentin (Neurontin) 800 mg THREE TIMES A DAY ORAL 01/06/17 18:00 02/05/17 17:59 01/07/17 08:25 Heparin Sodium (Porcine) (Heparin 5000 units/ml) 5,000 units EVERY 12 HOURS SUBQ 01/06/17 21:00 02/05/17 20:59 01/06/17 20:57 Insulin Aspart (NovoLOG) BEFORE MEALS AND HS SUBQ 01/06/17 16:30 02/05/17 16:29 Morphine Sulfate (Morphine Sulfate) 1 mg Q4H PRN IVP For Pain 01/06/17 15:30 01/13/17 15:29 Ondansetron HCl (Zofran) 4 mg Q6H PRN IVP Nausea & Vomiting 01/06/17 15:30 02/05/17 15:29 Polyethylene Glycol (Miralax) 17 gm BEDTIME ORAL 01/07/17 21:00 02/06/17 20:59 Polyethylene Glycol (Miralax) 17 gm HSPRN PRN ORAL Constipation 01/06/17 15:30 02/05/17 15:29 Simethicone (Mylicon) 80 mg QIDPRN PRN ORAL GAS PAIN 01/07/17 10:30 02/06/17 10:29 Sodium Polystyrene Sulfonate (Kayexalate) 45 gm DAILY ORAL 01/07/17 09:00 01/10/17 08:59 01/07/17 08:23 Tamsulosin HCl (Flomax) 0.4 mg BEDTIME ORAL 01/06/17 21:00 02/05/17 20:59 01/06/17 20:53 Zolpidem Tartrate (Ambien) 5 mg HSPRN PRN ORAL Insomnia 01/06/17 15:30 01/13/17 15:29 ANURADHA IYER Jan 07, 2017 11:32
--- NOTE | 2017-01-07 11:45 | Consultation ---
DATE OF CONSULTATION: 01/06/2017 HEMATOLOGY/ONCOLOGY CONSULTATION CONSULTING PHYSICIAN: Yemi Geiger M.D. REQUESTING PHYSICIAN: Manuelito Kimball M.D. Reason For Consultation: Evaluation of lung masses, evaluation of malignancy. IDENTIFICATION DATA: Dear Dr. Kimball, The patient is a pleasant 76-year-old male with past medical history, which is significant for hypertension, diabetes, and neurological headaches, at this time presents with bloating and abdominal pain for the past 15 days. He reports 5/10 pain, some cramping as well. In the ER, he had a CAT scan performed, which showed multiple lung masses, metastatic disease involving both lungs. The patient does not have a recorded history of malignancy. Hematology/Oncology service was consulted for evaluation and treatment. PAST MEDICAL HISTORY: As noted above. PAST SURGICAL HISTORY: None reported. ALLERGIES: Lipitor and Zocor. FAMILY HISTORY: Noncontributory. Review Of Systems: Constitutional: No fever, chills, or night sweats. Skin: No rashes, bumps, or itching. HEENT: No headache, hearing or vision changes. Breasts: No lumps, pain, or discharge. Pulmonary: No cough, sputum, or shortness of breath. Gastrointestinal: Some abdominal pain noted. Genitourinary: No dysuria, frequency, or urgency. Musculoskeletal: No joint swelling, muscle pain, or trauma. PHYSICAL EXAMINATION: GENERAL: The patient is in no acute distress. Vital Signs: Temperature 98 degrees Fahrenheit, pulse of 82, respiratory rate 12, blood pressure 133/67, and pulse oximetry 97% on room air. PULMONARY: Decreased breath sounds. CARDIOVASCULAR: Regular rate. No S3 or S4. ABDOMEN: Soft, nontender, and nondistended. EXTREMITIES: 1+ edema. Laboratory Data: alkaline phosphatase 293. Lipase 73. INR 1. WBC of 6.8, hemoglobin 13.3, and platelet count 203,000. Imaging: Abdomen and pelvis CAT scan shows nodule in the kidney, suspicious disease involving the lungs, multiple nodules, liver enlarged, and prostate enlarged. ASSESSMENT AND PLAN: 1. Metastatic malignancy, likely concerning for lung cancer. Obtain a biopsy. Order has been placed. In addition, obtain tumor markers. 2. Anemia secondary to chronic disease, mild at this time. 3. Abdominal pain, likely related to the patient's multiple lung masses. 4. Renal failure, hyperkalemia. Continue to closely monitor. 5. Lower back pain, likely related to malignancy. Obtain a biopsy first for further evaluation. I appreciate the consultation. Yemi Geiger M.D. DR: ALFRED JOB#: [id number] CC:
[2017-01-07 11:49] VITALS: BP 128/71
[2017-01-07] MEDS ORDERED: Esomeprazole sodium 40mg vial IVP ONE (12:00)
[2017-01-07 12:10] LABS: BASOPHILS % (AUTO) 0.9 % (0.0-2.0); EOSINOPHILS % (AUTO) 3.9 % (0.0-3.0); LYMPHOCYTES % (AUTO) 18.1 % (20.0-45.0); MEAN CORPUSCULAR HEMOGLOBIN 28.3 PG (27.0-31.0); MEAN CORPUSCULAR HGB CONC 31.6 G/DL (32.0-36.0); MEAN CORPUSCULAR VOLUME 90 FL (80-99); MEAN PLATELET VOLUME 8.4 FL (6.5-10.1); MONOCYTES % (AUTO) 12.8 % (1.0-10.0); NEUTROPHILS % (AUTO) 64.3 % (45.0-75.0); PLATELET COUNT 237 K/UL (150-450); RED BLOOD COUNT 4.85 M/UL (4.70-6.10); RED CELL DISTRIBUTION WIDTH 13.3 % (11.6-14.8); WHITE BLOOD COUNT 5.7 K/UL (4.8-10.8)
[2017-01-07] MEDS ORDERED: PPD Tuberculin Skin Test 5TU IDERMAL ONE (12:30)
[2017-01-07] MEDS ORDERED: Docusate 100mg cap ORAL SCH (13:00)
--- NOTE | 2017-01-07 13:28 | Consultation ---
Consult Note Consult Note The patient is a 76-year-old male, who presents with complaint of abdominal pain and bloating for two weeks. Began two weeks prior to admission, the patient began to experience abdominal pain and bloating. The patient denies nausea, vomiting, diarrhea, or constipation. The patient presented to [facility] emergency room. The patient is admitted for abdominal distention to rule out small bowel obstruction. GI Consult. HPI as noted above. GI consulted for constipation and abdominal bloating with concern for bowel obstruction. Pt seen on floor with family at bedside A&Ox4 NAD with no active s/sx of N/V/D. Abdomen noted to be distended, tympanic and non tender all quads. Denies anhy abdominal pain at this time. Pt had BM this morning after given Kayexalate. CT AP shows multiple lung nodules, hypertrophic prostate and hiatal hernia, see full report. Per patient family, he's had a colonoscopy at [facility] approximately 3 years ago. Social drinker. Labs show elevated CEA and CA 19-9. Meds, DIRECTOR LONG TERM CARE 1. Norvasc/benazepril 10/40 one tab p.o. daily. 2. Trulicity 1.5 mg subcutaneously daily. 3. Glimepiride 4 mg one tablet p.o. twice daily. 4. Hydrochlorothiazide 12.5 mg one tablet p.o. daily. 5. Metformin 750 mg one tablet p.o. twice daily. 6. Zantac 300 mg one tablet p.o. daily. 7. Crestor 20 mg one tablet p.o. daily. 8. Januvia 100 mg one tablet p.o. daily. 9. Flomax 0.4 mg one tablet p.o. at bedtime. Data reviewed- Patient interviewed and examined . Assessment/Plan Status: (1) Pulmonary nodule ? Mets- ---High CA-19-9 level (2) Renal failure Cr 1.7 now down to 1.4 ? Acute on chronic DM and HTN + Proteinuria) (3) Hyperkalemia, K of 5.1 on admit , now normalized (4) Abdominal distention , presentation symptom (5) Diabetes mellitus (6) HTN (hypertension) (7) High Cholestrol Plan: Per consultants- Hydrate- avoid nephrotoxics- Stop Metformin monitor renal parameters PAUL GORDILLO Jan 07, 2017 13:28
--- NOTE | 2017-01-07 16:48 | Internal Med Progress Note ---
Subjective Physician Name Good Sibley Attending Physician Good Sibley MD Current Medications Medications (Trade) Dose Ordered Sig/Sylvie Route PRN Reason Start Time Stop Time Status Last Admin Dose Admin Acetaminophen (Tylenol) 650 mg Q4H PRN ORAL T>100.5 01/07/17 17:00 02/05/17 16:59 Acetylcysteine (Mucomyst) 600 mg TWICE A DAY ORAL 01/07/17 18:00 01/07/17 18:01 Al Hydroxide/Mg Hydroxide (Mylanta II) 30 ml Q6H PRN ORAL dyspepsia 01/07/17 17:00 02/05/17 16:59 Albuterol/ Ipratropium (DuoNeb 0.5-3(2.5)mg/3ml) 3 ml Q6H PRN HHN dyspnea 01/07/17 17:00 01/11/17 16:59 Amlodipine Besylate (Norvasc) 10 mg DAILY ORAL 01/08/17 09:00 02/06/17 08:59 Clonidine HCl (Catapres) 0.1 mg Q4H PRN ORAL SBP>160mmHg 01/07/17 17:00 02/05/17 16:59 Dextrose (Dextrose 50%) STAT PRN IV Hypoglycemia 01/08/17 17:00 02/05/17 16:59 Docusate Sodium (Colace) 100 mg THREE TIMES A DAY ORAL 01/07/17 18:00 02/06/17 12:59 Gabapentin (Neurontin) 800 mg THREE TIMES A DAY ORAL 01/07/17 18:00 02/05/17 17:59 Heparin Sodium (Porcine) (Heparin 5000 units/ml) 5,000 units EVERY 12 HOURS SUBQ 01/07/17 21:00 02/05/17 20:59 Insulin Aspart (NovoLOG) BEFORE MEALS AND HS SUBQ 01/07/17 17:00 02/05/17 16:59 Morphine Sulfate (Morphine Sulfate) 1 mg Q4H PRN IVP PAIN 4-10 01/07/17 17:00 01/13/17 16:59 Ondansetron HCl (Zofran) 4 mg Q6H PRN IVP Nausea & Vomiting 01/07/17 17:00 02/05/17 16:59 Polyethylene Glycol (Miralax) 17 gm BEDTIME ORAL 01/07/17 21:00 02/06/17 20:59 Polyethylene Glycol (Miralax) 17 gm HSPRN PRN ORAL Constipation 01/08/17 21:00 02/05/17 20:59 Simethicone (Mylicon) 80 mg QIDPRN PRN ORAL GAS PAIN 01/07/17 17:00 02/06/17 16:59 Sodium Polystyrene Sulfonate (Kayexalate) 45 gm DAILY ORAL 01/08/17 09:00 01/11/17 08:59 UNV Tamsulosin HCl (Flomax) 0.4 mg BEDTIME ORAL 01/07/17 21:00 02/05/17 20:59 Zolpidem Tartrate (Ambien) 5 mg HSPRN PRN ORAL Insomnia 01/07/17 21:00 01/14/17 20:59 Allergies: Coded Allergies: ATORVASTATIN CALCIUM (Verified Adverse Reaction, MYAGLIA, 08/25/12) SIMVASTATIN (Verified Adverse Reaction, MYALGIA, 08/25/12) Subjective awake, alert, responsive, No abdomen pain, No Nausea or Vomiting Objective Last Vital Signs Date Time Temp Pulse Resp B/P (MAP) Pulse Ox O2 Delivery O2 Flow Rate FiO2 01/07/17 12:00 69 01/07/17 11:49 96.7 20 128/71 96 Room Air Laboratory Tests Test 01/06/17 17:50 01/06/17 22:50 01/07/17 04:45 01/07/17 11:14 Sodium Level 140 mEQ/L (135-145) 140 mEQ/L (135-145) Potassium Level 4.4 mEQ/L (3.4-4.9) 4.5 mEQ/L (3.4-4.9) Chloride Level 100 mEQ/L (98-107) 101 mEQ/L (98-107) Carbon Dioxide Level 27 mEQ/L (20-30) 26 mEQ/L (20-30) Anion Gap 13 (5-15) 13 (5-15) Blood Urea Nitrogen 33 mg/dL (7-23) H 29 mg/dL (7-23) H Creatinine 1.4 mg/dL (0.7-1.2) H 1.4 mg/dL (0.7-1.2) H Estimat Glomerular Filtration Rate mL/min (>60) mL/min (>60) Glucose Level 123 mg/dL (74-106) H 120 mg/dL (74-106) H Calcium Level 9.4 mg/dL (8.6-10.2) 9.4 mg/dL (8.6-10.2) CA 19-9 Antigen 67.68 U/mL (< 37) H Prostate Specific Antigen 3.2 ng/mL (< 4.5) White Blood Count 6.5 K/UL (4.8-10.8) Red Blood Count 4.72 M/UL (4.70-6.10) Hemoglobin 13.8 G/DL (14.2-18.0) L Hematocrit 42.6 % (42.0-52.0) Mean Corpuscular Volume 90 FL (80-99) Mean Corpuscular Hemoglobin 29.3 PG (27.0-31.0) Mean Corpuscular Hemoglobin Concent 32.4 G/DL (32.0-36.0) Red Cell Distribution Width 13.7 % (11.6-14.8) Platelet Count 234 K/UL (150-450) Mean Platelet Volume 9.3 FL (6.5-10.1) Neutrophils (%) (Auto) 62.9 % (45.0-75.0) Lymphocytes (%) (Auto) 20.1 % (20.0-45.0) Monocytes (%) (Auto) 11.9 % (1.0-10.0) H Eosinophils (%) (Auto) 4.7 % (0.0-3.0) H Basophils (%) (Auto) 0.5 % (0.0-2.0) Hemoglobin A1c 9.0 % (< 6.0) H Total Bilirubin 0.4 mg/dL (0.0-1.2) Aspartate Amino Transf (AST/SGOT) 38 U/L (5-40) Alanine Aminotransferase (ALT/SGPT) 47 U/L (3-41) H Alkaline Phosphatase 301 U/L (40-129) H Total Protein 7.9 g/dL (6.6-8.7) Albumin 3.7 g/dL (3.5-5.2) Globulin 4.2 g/dL Albumin/Globulin Ratio 0.8 (1.0-2.7) L Triglycerides Level 240 mg/dL (< 150) H Cholesterol Level 143 mg/dL (< 200) LDL Cholesterol 64 mg/dL (60-99) HDL Cholesterol 31 mg/dL (> 60) Cholesterol/HDL Ratio 4.6 (3.3-4.4) H Carcinoembryonic Antigen 5.5 ng/mL H Thyroid Stimulating Hormone (TSH) 2.280 uIU/mL (0.300-4.500) Anti-Cardiolipin IgM Antibody Pending TB Test (T-Spot) Pending TB Test Nil Control (T-Spot) Pending TB Test Panel A (T-Spot) Pending TB Test Panel B (T-Spot) Pending TB Test Positive Control (T-Spot) Pending Test 01/07/17 11:45 White Blood Count 5.7 K/UL (4.8-10.8) Red Blood Count 4.85 M/UL (4.70-6.10) Hemoglobin 13.7 G/DL (14.2-18.0) L Hematocrit 43.4 % (42.0-52.0) Mean Corpuscular Volume 90 FL (80-99) Mean Corpuscular Hemoglobin 28.3 PG (27.0-31.0) Mean Corpuscular Hemoglobin Concent 31.6 G/DL (32.0-36.0) L Red Cell Distribution Width 13.3 % (11.6-14.8) Platelet Count 237 K/UL (150-450) Mean Platelet Volume 8.4 FL (6.5-10.1) Neutrophils (%) (Auto) 64.3 % (45.0-75.0) Lymphocytes (%) (Auto) 18.1 % (20.0-45.0) L Monocytes (%) (Auto) 12.8 % (1.0-10.0) H Eosinophils (%) (Auto) 3.9 % (0.0-3.0) H Basophils (%) (Auto) 0.9 % (0.0-2.0) Lactate Dehydrogenase 320 U/L (135-230) H Blastomyces Ab Immunodiffusion Pending Cryptococcus Antigen Pending Histoplasma Mycelial Antibody Pending Histoplasma Antibody w Mycelial Ag Pending Histoplasma Antibody with Yeast Ag Pending Objective General: No acute distress, awake and alert HEENT: NCAT, sclera anicteric, PERRL, EOMI. Neck: Supple, no significant jugular venous distention, Lungs: Good inspiratory effort, no accessory muscle use, clear to auscultation bilaterally, no Wheeze or Rales. Heart: Regular rate and rhythm, normal S1/S2, no murmurs Abdomen: soft, nontender, nondistended. Normoactive bowel sounds. Obesity. / Rectal: Refused and deferred. Extremities: No Cyanosis , clubbing or edema. Neuro: A&O x 3, Able to move all extremities Psych: Normal mood and affect Assessment/Plan Assessment/Plan 1. Abdominal pain etiology? elevated CEA / CA 19-9 2. Morbid Obesity. 3. Elevated liver function tests. 4. Multiple lung Nodules 5. Renal failure. 6. Diabetes type 2. 7. Hypertension. 8. Hypercholesterolemia. Plan: transfer to respiratory Isolation F/U CT of chest Discuss with family members at bedside Heparin SQ Full code PPD placement Good Sibley MD Jan 07, 2017 16:48
[2017-01-07] MEDS ORDERED: DuoNeb 0.5-3(2.5)mg/3ml neb HHN PRN (17:00)
[2017-01-07] MEDS ORDERED: Morphine Sulfate 2mg/ml Inj IVP PRN (17:00)
[2017-01-07] MEDS: Docusate 100mg cap ORAL SCH (17:36)
[2017-01-07 19:54] VITALS: BP 145/77
[2017-01-07] MEDS ORDERED: Zolpidem 5mg tab ORAL PRN (21:00)
[2017-01-07] MEDS ORDERED: Miralax 17gm pkt ORAL SCH (21:00)
[2017-01-07] MEDS: Tamsulosin 0.4mg cap ORAL SCH (22:21)
[2017-01-07] MEDS: Miralax 17gm pkt ORAL SCH (22:22)
[2017-01-08] VITALS: BP 136/65
[2017-01-08 04:00] VITALS: BP 132/70
[2017-01-08] MEDS: NovoLOG Insulin Flexpen SUBQ SCH ×4 (06:30→20:27)
[2017-01-08 06:43] LABS: BASOPHILS % (AUTO) 0.9 % (0.0-2.0); LYMPHOCYTES % (AUTO) 15.6 % (20.0-45.0); MEAN CORPUSCULAR HEMOGLOBIN 27.4 PG (27.0-31.0); MEAN CORPUSCULAR HGB CONC 30.6 G/DL (32.0-36.0); MEAN CORPUSCULAR VOLUME 90 FL (80-99); MONOCYTES % (AUTO) 13.4 % (1.0-10.0); PLATELET COUNT 233 K/UL (150-450); RED BLOOD COUNT 5.08 M/UL (4.70-6.10); RED CELL DISTRIBUTION WIDTH 13.2 % (11.6-14.8); WHITE BLOOD COUNT 6.8 K/UL (4.8-10.8)
[2017-01-08 07:22] LABS: ALANINE AMINOTRANSFERASE 40 U/L (3-41); ANION GAP 11 (5-15); ASPARTATE AMINO TRANSFERASE 33 U/L (5-40); CALCIUM 9.6 mg/dL (8.6-10.2); CARBON DIOXIDE 30 mEQ/L (20-30); CHLORIDE 103 mEQ/L (98-107); CHOLESTEROL 153 mg/dL (< 200); CHOLESTEROL/HDL RATIO 5.1 (3.3-4.4); CREATININE 1.5 mg/dL (0.7-1.2); FERRITIN 113 ng/mL (10-230); HEMOLYSIS 4; LDL CHOLESTEROL (CALC.) 80 mg/dL (60-99); MAGNESIUM 2.1 mg/dL (1.7-2.5); PHOSPHORUS 3.4 mg/dL (2.5-4.8); POTASSIUM 4.1 mEQ/L (3.4-4.9); SODIUM 144 mEQ/L (135-145); TOTAL PROTEIN 7.6 g/dL (6.6-8.7); URIC ACID 9.2 mg/dL (3.0-7.5)
[2017-01-08 07:55] LABS: OTHERS PATHOLOGIST COMMENT
[2017-01-08 08:00] VITALS: BP 147/68
--- NOTE | 2017-01-08 08:35 | General Progress Note ---
Assessment/Plan Problem List: (1) Diabetes mellitus ICD Codes: E11.9 - Type 2 diabetes mellitus without complications SNOMED: 29892570 (2) GERD (gastroesophageal reflux disease) ICD Codes: K21.9 - Gastro-esophageal reflux disease without esophagitis SNOMED: 558056727 (3) Elevated CEA ICD Codes: R97.0 - Elevated carcinoembryonic antigen [CEA] SNOMED: 19146546, 756891997 (4) Diabetes ICD Codes: E11.9 - Type 2 diabetes mellitus without complications SNOMED: 75494851 (5) HTN (hypertension) ICD Codes: I10 - Essential (primary) hypertension SNOMED: 75306265 (6) Pulmonary nodule ICD Codes: R91.1 - Solitary pulmonary nodule SNOMED: 456106132 Assessment/Plan no abd pain today pending lung biopsy on isolation for possible TB GI procedures on hold for now Subjective ROS Limited/Unobtainable: Yes Allergies: Coded Allergies: ATORVASTATIN CALCIUM (Verified Adverse Reaction, MYAGLIA, 08/25/12) SIMVASTATIN (Verified Adverse Reaction, MYALGIA, 08/25/12) Subjective no abd pain Objective Last 24 Hour Vital Signs Date Time Temp Pulse Resp B/P (MAP) Pulse Ox O2 Delivery O2 Flow Rate FiO2 01/08/17 04:00 98.0 72 20 132/70 98 Room Air 01/08/17 00:00 97.9 71 20 136/65 97 Room Air 01/07/17 19:54 97.9 71 20 145/77 93 Room Air 01/07/17 19:10 75 18 Room Air 01/07/17 12:00 69 01/07/17 11:49 96.7 69 20 128/71 96 Room Air Laboratory Tests 01/07/17 11:14: TB Test (T-Spot) [Pending], TB Test Nil Control (T-Spot) [Pending], TB Test Panel A (T-Spot) [Pending], TB Test Panel B (T-Spot) [Pending], TB Test Positive Control (T-Spot) [Pending] 01/07/17 11:45: White Blood Count 5.7, Red Blood Count 4.85, Hemoglobin 13.7L, Hematocrit 43.4, Mean Corpuscular Volume 90, Mean Corpuscular Hemoglobin 28.3, Mean Corpuscular Hemoglobin Concent 31.6L, Red Cell Distribution Width 13.3, Platelet Count 237, Mean Platelet Volume 8.4, Neutrophils (%) (Auto) 64.3, Lymphocytes (%) (Auto) 18.1L, Monocytes (%) (Auto) 12.8H, Eosinophils (%) (Auto) 3.9H, Basophils (%) ( Auto) 0.9, Lactate Dehydrogenase 320H, Blastomyces Ab Immunodiffusion [Pending] , Cryptococcus Antigen [Pending], Histoplasma Mycelial Antibody [Pending], Histoplasma Antibody w Mycelial Ag [Pending], Histoplasma Antibody with Yeast Ag [Pending] 01/08/17 05:55: White Blood Count 6.8, Red Blood Count 5.08, Hemoglobin 13.9L, Hematocrit 45.5, Mean Corpuscular Volume 90, Mean Corpuscular Hemoglobin 27.4, Mean Corpuscular Hemoglobin Concent 30.6L, Red Cell Distribution Width 13.2, Platelet Count 233, Mean Platelet Volume 9.0, Neutrophils (%) (Auto) 66.0, Lymphocytes (%) (Auto) 15.6L, Monocytes (%) (Auto) 13.4H, Eosinophils (%) (Auto) 4.0H, Basophils (%) ( Auto) 0.9, Sodium Level 144, Potassium Level 4.1, Chloride Level 103, Carbon Dioxide Level 30, Anion Gap 11, Blood Urea Nitrogen 28H, Creatinine 1.5H, Estimat Glomerular Filtration Rate , Glucose Level 121H, Uric Acid 9.2H, Calcium Level 9.6, Phosphorus Level 3.4, Magnesium Level 2.1, Ferritin 113, Total Bilirubin 0.4, Gamma Glutamyl Transpeptidase 653H, Aspartate Amino Transf (AST/SGOT) 33, Alanine Aminotransferase (ALT/SGPT) 40, Alkaline Phosphatase 311H , C-Reactive Protein, Quantitative 1.0H, Pro-B-Type Natriuretic Peptide 156H, Total Protein 7.6, Albumin 3.8, Globulin 3.8, Albumin/Globulin Ratio 1.0, Triglycerides Level 213H, Cholesterol Level 153, LDL Cholesterol 80, HDL Cholesterol 30, Cholesterol/HDL Ratio 5.1H Height (Feet): 5 Height (Inches): 5.00 Weight (Pounds): 178 General Appearance: alert EENT: normal ENT inspection Neck: supple Cardiovascular: normal rate Respiratory/Chest: lungs clear Abdomen: normal bowel sounds, non tender, soft Extremities: non-tender ESAU PASCUAL Jan 08, 2017 08:35
--- NOTE | 2017-01-08 08:56 | General Progress Note ---
Assessment/Plan Status: unchanged Status Narrative Cr 1.5 stable Assessment/Plan (1) Pulmonary nodule ? Mets- ---High CA-19-9 level (2) Renal failure Cr 1.7 now down to 1.5 today ? Acute on chronic DM and HTN + Proteinuria) (3) Hyperkalemia, K of 5.1 on admit , now normalized (4) Abdominal distention , presentation symptom (5) Diabetes mellitus (6) HTN (hypertension) (7) High Cholestrol Plan: Per consultants- Hydrate- avoid nephrotoxics- Stop Metformin monitor renal parameters Subjective ROS Limited/Unobtainable: No Constitutional: Reports: malaise Allergies: Coded Allergies: ATORVASTATIN CALCIUM (Verified Adverse Reaction, MYAGLIA, 08/25/12) SIMVASTATIN (Verified Adverse Reaction, MYALGIA, 08/25/12) Objective Last 24 Hour Vital Signs Date Time Temp Pulse Resp B/P (MAP) Pulse Ox O2 Delivery O2 Flow Rate FiO2 01/08/17 08:26 71 16 Room Air 01/08/17 04:00 98.0 72 20 132/70 98 Room Air 01/08/17 00:00 97.9 71 20 136/65 97 Room Air 01/07/17 19:54 97.9 71 20 145/77 93 Room Air 01/07/17 19:10 75 18 Room Air 01/07/17 12:00 69 01/07/17 11:49 96.7 69 20 128/71 96 Room Air Laboratory Tests 01/07/17 11:14: TB Test (T-Spot) [Pending], TB Test Nil Control (T-Spot) [Pending], TB Test Panel A (T-Spot) [Pending], TB Test Panel B (T-Spot) [Pending], TB Test Positive Control (T-Spot) [Pending] 01/07/17 11:45: White Blood Count 5.7, Red Blood Count 4.85, Hemoglobin 13.7L, Hematocrit 43.4, Mean Corpuscular Volume 90, Mean Corpuscular Hemoglobin 28.3, Mean Corpuscular Hemoglobin Concent 31.6L, Red Cell Distribution Width 13.3, Platelet Count 237, Mean Platelet Volume 8.4, Neutrophils (%) (Auto) 64.3, Lymphocytes (%) (Auto) 18.1L, Monocytes (%) (Auto) 12.8H, Eosinophils (%) (Auto) 3.9H, Basophils (%) ( Auto) 0.9, Lactate Dehydrogenase 320H, Blastomyces Ab Immunodiffusion [Pending] , Cryptococcus Antigen [Pending], Histoplasma Mycelial Antibody [Pending], Histoplasma Antibody w Mycelial Ag [Pending], Histoplasma Antibody with Yeast Ag [Pending] 01/08/17 05:55: White Blood Count 6.8, Red Blood Count 5.08, Hemoglobin 13.9L, Hematocrit 45.5, Mean Corpuscular Volume 90, Mean Corpuscular Hemoglobin 27.4, Mean Corpuscular Hemoglobin Concent 30.6L, Red Cell Distribution Width 13.2, Platelet Count 233, Mean Platelet Volume 9.0, Neutrophils (%) (Auto) 66.0, Lymphocytes (%) (Auto) 15.6L, Monocytes (%) (Auto) 13.4H, Eosinophils (%) (Auto) 4.0H, Basophils (%) ( Auto) 0.9, Sodium Level 144, Potassium Level 4.1, Chloride Level 103, Carbon Dioxide Level 30, Anion Gap 11, Blood Urea Nitrogen 28H, Creatinine 1.5H, Estimat Glomerular Filtration Rate , Glucose Level 121H, Uric Acid 9.2H, Calcium Level 9.6, Phosphorus Level 3.4, Magnesium Level 2.1, Ferritin 113, Total Bilirubin 0.4, Gamma Glutamyl Transpeptidase 653H, Aspartate Amino Transf (AST/SGOT) 33, Alanine Aminotransferase (ALT/SGPT) 40, Alkaline Phosphatase 311H , C-Reactive Protein, Quantitative 1.0H, Pro-B-Type Natriuretic Peptide 156H, Total Protein 7.6, Albumin 3.8, Globulin 3.8, Albumin/Globulin Ratio 1.0, Triglycerides Level 213H, Cholesterol Level 153, LDL Cholesterol 80, HDL Cholesterol 30, Cholesterol/HDL Ratio 5.1H Height (Feet): 5 Height (Inches): 5.00 Weight (Pounds): 178 General Appearance: no apparent distress Objective no change in PE PAUL GORDILLO Jan 08, 2017 08:56
[2017-01-08] MEDS ORDERED: Sodium Polystyrene Sulfonate 15gm Powder ORAL SCH (09:00)
[2017-01-08] MEDS: Docusate 100mg cap ORAL SCH ×3 (09:03→17:16)
[2017-01-08] MEDS: Heparin 5000 units/ml inj SUBQ SCH ×2 (09:04→20:48)
[2017-01-08 12:00] VITALS: BP 130/74
--- NOTE | 2017-01-08 13:45 | General Progress Note ---
Assessment/Plan Assessment/Plan ASSESSMENT AND PLAN: 1. Metastatic malignancy, likely concerning for lung cancer. Obtain a biopsy. --> pending chest ct with contrast --> CEA and CA 19-9 is elevated 2. Anemia secondary to chronic disease, mild at this time. 3. Abdominal pain, likely related to the patient's multiple lung masses. 4. Renal failure, hyperkalemia. Continue to closely monitor. 5. Lower back pain, likely related to malignancy. Subjective Date patient seen: Jan 07, 2017 Constitutional: Reports: no symptoms HEENT: Reports: no symptoms Cardiovascular: Reports: no symptoms Respiratory: Reports: no symptoms Gastrointestinal/Abdominal: Reports: abdomen distended Genitourinary: Reports: no symptoms Neurologic/Psychiatric: Reports: no symptoms Endocrine: Reports: no symptoms Hematologic/Lymphatic: Reports: no symptoms Allergies: Coded Allergies: ATORVASTATIN CALCIUM (Verified Adverse Reaction, MYAGLIA, 08/25/12) SIMVASTATIN (Verified Adverse Reaction, MYALGIA, 08/25/12) Subjective no pain, afebrile, not bleeding needs chest ct with contrast Objective Last 24 Hour Vital Signs Date Time Temp Pulse Resp B/P (MAP) Pulse Ox O2 Delivery O2 Flow Rate FiO2 01/08/17 12:00 97.9 72 19 130/74 90 Room Air 01/08/17 09:05 70 147/68 01/08/17 08:26 71 16 Room Air 01/08/17 08:00 97.0 66 18 147/68 94 Room Air 01/08/17 04:00 98.0 72 20 132/70 98 Room Air 01/08/17 00:00 97.9 71 20 136/65 97 Room Air 01/07/17 19:54 97.9 71 20 145/77 93 Room Air 01/07/17 19:10 75 18 Room Air Laboratory Tests 01/08/17 05:55: White Blood Count 6.8, Red Blood Count 5.08, Hemoglobin 13.9L, Hematocrit 45.5, Mean Corpuscular Volume 90, Mean Corpuscular Hemoglobin 27.4, Mean Corpuscular Hemoglobin Concent 30.6L, Red Cell Distribution Width 13.2, Platelet Count 233, Mean Platelet Volume 9.0, Neutrophils (%) (Auto) 66.0, Lymphocytes (%) (Auto) 15.6L, Monocytes (%) (Auto) 13.4H, Eosinophils (%) (Auto) 4.0H, Basophils (%) ( Auto) 0.9, Sodium Level 144, Potassium Level 4.1, Chloride Level 103, Carbon Dioxide Level 30, Anion Gap 11, Blood Urea Nitrogen 28H, Creatinine 1.5H, Estimat Glomerular Filtration Rate , Glucose Level 121H, Uric Acid 9.2H, Calcium Level 9.6, Phosphorus Level 3.4, Magnesium Level 2.1, Ferritin 113, Total Bilirubin 0.4, Gamma Glutamyl Transpeptidase 653H, Aspartate Amino Transf (AST/SGOT) 33, Alanine Aminotransferase (ALT/SGPT) 40, Alkaline Phosphatase 311H , C-Reactive Protein, Quantitative 1.0H, Pro-B-Type Natriuretic Peptide 156H, Total Protein 7.6, Albumin 3.8, Globulin 3.8, Albumin/Globulin Ratio 1.0, Triglycerides Level 213H, Cholesterol Level 153, LDL Cholesterol 80, HDL Cholesterol 30, Cholesterol/HDL Ratio 5.1H Height (Feet): 5 Height (Inches): 5.00 Weight (Pounds): 178 General Appearance: no apparent distress EENT: normal ENT inspection Neck: normal alignment Cardiovascular: regular rhythm Respiratory/Chest: lungs clear Abdomen: normal bowel sounds, distended Skin: warm/dry Yemi Geiger Jan 08, 2017 13:45
--- NOTE | 2017-01-08 14:34 | Internal Med Progress Note ---
Subjective Date of Service: Jan 08, 2017 Physician Name JamesManuelito Attending Physician Good Sibley MD Current Medications Medications (Trade) Dose Ordered Sig/Sylvie Route PRN Reason Start Time Stop Time Status Last Admin Dose Admin Acetaminophen (Tylenol) 650 mg Q4H PRN ORAL T>100.5 01/07/17 17:00 02/05/17 16:59 Al Hydroxide/Mg Hydroxide (Mylanta II) 30 ml Q6H PRN ORAL dyspepsia 01/07/17 17:00 02/05/17 16:59 Albuterol/ Ipratropium (DuoNeb 0.5-3(2.5)mg/3ml) 3 ml Q6H PRN HHN dyspnea 01/07/17 17:00 01/11/17 16:59 Amlodipine Besylate (Norvasc) 10 mg DAILY ORAL 01/08/17 09:00 02/06/17 08:59 01/08/17 09:05 Clonidine HCl (Catapres) 0.1 mg Q4H PRN ORAL SBP>160mmHg 01/07/17 17:00 02/05/17 16:59 Dextrose (Dextrose 50%) STAT PRN IV Hypoglycemia 01/08/17 17:00 02/05/17 16:59 Docusate Sodium (Colace) 100 mg THREE TIMES A DAY ORAL 01/07/17 18:00 02/06/17 12:59 01/08/17 13:12 Gabapentin (Neurontin) 800 mg THREE TIMES A DAY ORAL 01/07/17 18:00 02/05/17 17:59 01/08/17 13:12 Heparin Sodium (Porcine) (Heparin 5000 units/ml) 5,000 units EVERY 12 HOURS SUBQ 01/07/17 21:00 02/05/17 20:59 01/08/17 09:04 Insulin Aspart (NovoLOG) BEFORE MEALS AND HS SUBQ 01/07/17 17:00 02/05/17 16:59 Morphine Sulfate (Morphine Sulfate) 1 mg Q4H PRN IVP PAIN 4-10 01/07/17 17:00 01/13/17 16:59 Ondansetron HCl (Zofran) 4 mg Q6H PRN IVP Nausea & Vomiting 01/07/17 17:00 02/05/17 16:59 Polyethylene Glycol (Miralax) 17 gm BEDTIME ORAL 01/07/17 21:00 02/06/17 20:59 01/07/17 22:22 Polyethylene Glycol (Miralax) 17 gm HSPRN PRN ORAL Constipation 01/08/17 21:00 02/05/17 20:59 Simethicone (Mylicon) 80 mg QIDPRN PRN ORAL GAS PAIN 01/07/17 17:00 02/06/17 16:59 Tamsulosin HCl (Flomax) 0.4 mg BEDTIME ORAL 01/07/17 21:00 02/05/17 20:59 01/07/17 22:21 Zolpidem Tartrate (Ambien) 5 mg HSPRN PRN ORAL Insomnia 01/07/17 21:00 01/14/17 20:59 Allergies: Coded Allergies: ATORVASTATIN CALCIUM (Verified Adverse Reaction, MYAGLIA, 08/25/12) SIMVASTATIN (Verified Adverse Reaction, MYALGIA, 08/25/12) ROS Limited/Unobtainable: No Constitutional: Reports: no symptoms HEENT: Reports: no symptoms Cardiovascular: Reports: no symptoms Respiratory: Reports: no symptoms Gastrointestinal/Abdominal: Reports: abdomen distended, abdominal pain Genitourinary: Reports: no symptoms Neurologic/Psychiatric: Reports: no symptoms Subjective 76 YO M admitted with abdominal pain and bloating. Now lung masses. Await biopsy. Cover for Int Med-Dr Sibley. Objective Last Vital Signs Date Time Temp Pulse Resp B/P (MAP) Pulse Ox O2 Delivery O2 Flow Rate FiO2 01/08/17 12:00 97.9 72 19 130/74 90 Room Air General Appearance: WD/WN, no apparent distress, alert EENT: PERRL/EOMI, TMs normal Neck: non-tender, normal alignment, supple, normal inspection Cardiovascular: normal peripheral pulses, normal rate, regular rhythm, no gallop/murmur, no JVD Respiratory/Chest: chest wall non-tender, no respiratory distress, no accessory muscle use, decreased breath sounds, crackles/rales Abdomen: soft, no organomegaly, no mass, decreased bowel sounds, distended Extremities: normal range of motion 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, no motor/sensory deficits Skin: normal pigmentation, warm/dry Laboratory Tests Test 01/08/17 05:55 White Blood Count 6.8 K/UL (4.8-10.8) Red Blood Count 5.08 M/UL (4.70-6.10) Hemoglobin 13.9 G/DL (14.2-18.0) L Hematocrit 45.5 % (42.0-52.0) Mean Corpuscular Volume 90 FL (80-99) Mean Corpuscular Hemoglobin 27.4 PG (27.0-31.0) Mean Corpuscular Hemoglobin Concent 30.6 G/DL (32.0-36.0) L Red Cell Distribution Width 13.2 % (11.6-14.8) Platelet Count 233 K/UL (150-450) Mean Platelet Volume 9.0 FL (6.5-10.1) Neutrophils (%) (Auto) 66.0 % (45.0-75.0) Lymphocytes (%) (Auto) 15.6 % (20.0-45.0) L Monocytes (%) (Auto) 13.4 % (1.0-10.0) H Eosinophils (%) (Auto) 4.0 % (0.0-3.0) H Basophils (%) (Auto) 0.9 % (0.0-2.0) Sodium Level 144 mEQ/L (135-145) Potassium Level 4.1 mEQ/L (3.4-4.9) Chloride Level 103 mEQ/L (98-107) Carbon Dioxide Level 30 mEQ/L (20-30) Anion Gap 11 (5-15) Blood Urea Nitrogen 28 mg/dL (7-23) H Creatinine 1.5 mg/dL (0.7-1.2) H Estimat Glomerular Filtration Rate mL/min (>60) Glucose Level 121 mg/dL (74-106) H Uric Acid 9.2 mg/dL (3.0-7.5) H Calcium Level 9.6 mg/dL (8.6-10.2) Phosphorus Level 3.4 mg/dL (2.5-4.8) Magnesium Level 2.1 mg/dL (1.7-2.5) Ferritin 113 ng/mL (10-230) Total Bilirubin 0.4 mg/dL (0.0-1.2) Gamma Glutamyl Transpeptidase 653 U/L (8-61) H Aspartate Amino Transf (AST/SGOT) 33 U/L (5-40) Alanine Aminotransferase (ALT/SGPT) 40 U/L (3-41) Alkaline Phosphatase 311 U/L (40-129) H C-Reactive Protein, Quantitative 1.0 mg/dL (< 0.5) H Pro-B-Type Natriuretic Peptide 156 pg/mL (0-125) H Total Protein 7.6 g/dL (6.6-8.7) Albumin 3.8 g/dL (3.5-5.2) Globulin 3.8 g/dL Albumin/Globulin Ratio 1.0 (1.0-2.7) Triglycerides Level 213 mg/dL (< 150) H Cholesterol Level 153 mg/dL (< 200) LDL Cholesterol 80 mg/dL (60-99) HDL Cholesterol 30 mg/dL (> 60) Cholesterol/HDL Ratio 5.1 (3.3-4.4) H Assessment/Plan Problem List: (1) Hypercholesteremia (2) Pain, abdominal Assessment & Plan: See GI note. (3) Elevated liver enzymes (4) Renal failure Assessment & Plan: See nephrology note. (5) HTN (hypertension) Assessment & Plan: Cont norvasc. (6) Diabetes mellitus Assessment & Plan: D/C metformin. Cont novolog sliding scale. (7) Abdominal distention (8) Elevated CEA (9) Lung mass Assessment & Plan: Multiple. Await biopsy. See onc and pulm note. Status: not improved MANUELITO JAMES Jan 08, 2017 14:34
[2017-01-08 16:00] VITALS: BP 140/65
--- NOTE | 2017-01-08 19:07 | Pulmonology Progress Note ---
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 borderline high awaiting CT chest, done, awaiting official reading, doens't look like metastatic disease PPD skin Subjective ROS Limited/Unobtainable: No Constitutional: Reports: no symptoms HEENT: Repors: no symptoms Allergies: Coded Allergies: ATORVASTATIN CALCIUM (Verified Adverse Reaction, MYAGLIA, 08/25/12) SIMVASTATIN (Verified Adverse Reaction, MYALGIA, 08/25/12) Objective Last 24 Hour Vital Signs Date Time Temp Pulse Resp B/P (MAP) Pulse Ox O2 Delivery O2 Flow Rate FiO2 01/08/17 16:00 97.9 73 18 140/65 92 Room Air 01/08/17 12:00 97.9 72 19 130/74 90 Room Air 01/08/17 09:05 70 147/68 01/08/17 08:26 71 16 Room Air 01/08/17 08:00 97.0 66 18 147/68 94 Room Air 01/08/17 04:00 98.0 72 20 132/70 98 Room Air 01/08/17 00:00 97.9 71 20 136/65 97 Room Air 01/07/17 19:54 97.9 71 20 145/77 93 Room Air 01/07/17 19:10 75 18 Room Air Intake and Output 01/08/17 01/09/17 19:00 07:00 # Bowel Movements 1 General Appearance: WD/WN HEENT: normocephalic, atraumatic Respiratory/Chest: chest wall non-tender, lungs clear Cardiovascular: normal peripheral pulses, normal rate Abdomen: normal bowel sounds, soft, non tender Genitourinary: normal external genitalia Extremities: no cyanosis Skin: no rash 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, no motor/sensory deficits Laboratory Tests 01/08/17 05:55: White Blood Count 6.8, Red Blood Count 5.08, Hemoglobin 13.9L, Hematocrit 45.5, Mean Corpuscular Volume 90, Mean Corpuscular Hemoglobin 27.4, Mean Corpuscular Hemoglobin Concent 30.6L, Red Cell Distribution Width 13.2, Platelet Count 233, Mean Platelet Volume 9.0, Neutrophils (%) (Auto) 66.0, Lymphocytes (%) (Auto) 15.6L, Monocytes (%) (Auto) 13.4H, Eosinophils (%) (Auto) 4.0H, Basophils (%) ( Auto) 0.9, Sodium Level 144, Potassium Level 4.1, Chloride Level 103, Carbon Dioxide Level 30, Anion Gap 11, Blood Urea Nitrogen 28H, Creatinine 1.5H, Estimat Glomerular Filtration Rate , Glucose Level 121H, Uric Acid 9.2H, Calcium Level 9.6, Phosphorus Level 3.4, Magnesium Level 2.1, Ferritin 113, Total Bilirubin 0.4, Gamma Glutamyl Transpeptidase 653H, Aspartate Amino Transf (AST/SGOT) 33, Alanine Aminotransferase (ALT/SGPT) 40, Alkaline Phosphatase 311H , C-Reactive Protein, Quantitative 1.0H, Pro-B-Type Natriuretic Peptide 156H, Total Protein 7.6, Albumin 3.8, Globulin 3.8, Albumin/Globulin Ratio 1.0, Triglycerides Level 213H, Cholesterol Level 153, LDL Cholesterol 80, HDL Cholesterol 30, Cholesterol/HDL Ratio 5.1H Current Medications Medications (Trade) Dose Ordered Sig/Sylvie Route PRN Reason Start Time Stop Time Status Last Admin Dose Admin Acetaminophen (Tylenol) 650 mg Q4H PRN ORAL T>100.5 01/07/17 17:00 02/05/17 16:59 Al Hydroxide/Mg Hydroxide (Mylanta II) 30 ml Q6H PRN ORAL dyspepsia 01/07/17 17:00 02/05/17 16:59 Albuterol/ Ipratropium (DuoNeb 0.5-3(2.5)mg/3ml) 3 ml Q6H PRN HHN dyspnea 01/07/17 17:00 01/11/17 16:59 Amlodipine Besylate (Norvasc) 10 mg DAILY ORAL 01/08/17 09:00 02/06/17 08:59 01/08/17 09:05 Clonidine HCl (Catapres) 0.1 mg Q4H PRN ORAL SBP>160mmHg 01/07/17 17:00 02/05/17 16:59 Dextrose (Dextrose 50%) STAT PRN IV Hypoglycemia 01/08/17 17:00 02/05/17 16:59 Docusate Sodium (Colace) 100 mg THREE TIMES A DAY ORAL 01/07/17 18:00 02/06/17 12:59 01/08/17 17:16 Gabapentin (Neurontin) 800 mg THREE TIMES A DAY ORAL 01/07/17 18:00 02/05/17 17:59 01/08/17 17:16 Heparin Sodium (Porcine) (Heparin 5000 units/ml) 5,000 units EVERY 12 HOURS SUBQ 01/07/17 21:00 02/05/17 20:59 01/08/17 09:04 Insulin Aspart (NovoLOG) BEFORE MEALS AND HS SUBQ 01/07/17 17:00 02/05/17 16:59 Morphine Sulfate (Morphine Sulfate) 1 mg Q4H PRN IVP PAIN 4-10 01/07/17 17:00 01/13/17 16:59 Ondansetron HCl (Zofran) 4 mg Q6H PRN IVP Nausea & Vomiting 01/07/17 17:00 02/05/17 16:59 Polyethylene Glycol (Miralax) 17 gm BEDTIME ORAL 01/07/17 21:00 02/06/17 20:59 01/07/17 22:22 Polyethylene Glycol (Miralax) 17 gm HSPRN PRN ORAL Constipation 01/08/17 21:00 02/05/17 20:59 Simethicone (Mylicon) 80 mg QIDPRN PRN ORAL GAS PAIN 01/07/17 17:00 02/06/17 16:59 Tamsulosin HCl (Flomax) 0.4 mg BEDTIME ORAL 01/07/17 21:00 02/05/17 20:59 01/07/17 22:21 Zolpidem Tartrate (Ambien) 5 mg HSPRN PRN ORAL Insomnia 01/07/17 21:00 01/14/17 20:59 ANURADHA IYER Jan 08, 2017 19:07
[2017-01-08 20:00] VITALS: BP 141/69
[2017-01-08] MEDS: Mylanta II UD 30ml ORAL PRN (20:37)
[2017-01-08] MEDS: Tamsulosin 0.4mg cap ORAL SCH (20:40)
[2017-01-08] MEDS: Miralax 17gm pkt ORAL SCH (20:41)
[2017-01-08] MEDS ORDERED: Miralax 17gm pkt ORAL PRN (21:00)
--- NOTE | 2017-01-08 21:17 | Consultation ---
Consult Note Consult Note ID CONSULT: Sinan# [id number] Assessment/Plan ASSESSMENT: 76 y/o male with: // Multiple lung nodules r/o TB, fungal vs metastatic disease - pending: CrAg, T-spot, Histoplasma, blastomyces, coccidioides - elevated CEA, CA 19-9, LDH, left renal nodule - CT Chest: multiple nodules within the visualized portions of the lower lung field. These are suspicious for metastatic neoplasm // Afebrile without leukocytosis // Left kidney hyperdense nodule measuring 1.7 cm r/o malignancy // ARF on CKD3 - improved // Elevated LFTs - improved - CT A/P: liver is nodular and enlarged. Gallbladder wall is prominent. // DM2 - HbA1c 9% // No ABX allergies // Full Code PLAN: - monitor off of ABX for now - biopsy lung vs renal - f/u sputum AFB, serology, add coccidioides serology - monitor CBC, temperatures - monitor BMP - monitor CXR - airbourne precautions pending sputum AFB Thanks! Will follow ANDREY HERNANDEZ Jan 08, 2017 21:17
--- NOTE | 2017-01-08 21:53 | General Progress Note ---
Assessment/Plan Assessment/Plan ASSESSMENT AND PLAN: 1. Metastatic malignancy, likely concerning for lung cancer. Obtain a biopsy. --> chest ct with contrast done, pending final report --> CEA and CA 19-9 is elevated 2. Anemia secondary to chronic disease, mild at this time. 3. Abdominal pain, resolved. 4. Renal failure, hyperkalemia. Continue to closely monitor. 5. Lower back pain, likely related to malignancy. Subjective Constitutional: Reports: no symptoms HEENT: Reports: no symptoms Cardiovascular: Reports: no symptoms Respiratory: Reports: no symptoms Gastrointestinal/Abdominal: Reports: no symptoms Genitourinary: Reports: no symptoms Neurologic/Psychiatric: Reports: no symptoms Endocrine: Reports: no symptoms Hematologic/Lymphatic: Reports: anemia Allergies: Coded Allergies: ATORVASTATIN CALCIUM (Verified Adverse Reaction, MYAGLIA, 08/25/12) SIMVASTATIN (Verified Adverse Reaction, MYALGIA, 08/25/12) Subjective NAD Objective Last 24 Hour Vital Signs Date Time Temp Pulse Resp B/P (MAP) Pulse Ox O2 Delivery O2 Flow Rate FiO2 01/08/17 20:22 79 18 Room Air 01/08/17 20:00 98.1 81 18 141/69 92 Room Air 01/08/17 16:00 97.9 73 18 140/65 92 Room Air 01/08/17 12:00 97.9 72 19 130/74 90 Room Air 01/08/17 09:05 70 147/68 01/08/17 08:26 71 16 Room Air 01/08/17 08:00 97.0 66 18 147/68 94 Room Air 01/08/17 04:00 98.0 72 20 132/70 98 Room Air 01/08/17 00:00 97.9 71 20 136/65 97 Room Air Intake and Output 01/08/17 01/09/17 19:00 07:00 # Bowel Movements 1 Laboratory Tests 01/08/17 05:55: White Blood Count 6.8, Red Blood Count 5.08, Hemoglobin 13.9L, Hematocrit 45.5, Mean Corpuscular Volume 90, Mean Corpuscular Hemoglobin 27.4, Mean Corpuscular Hemoglobin Concent 30.6L, Red Cell Distribution Width 13.2, Platelet Count 233, Mean Platelet Volume 9.0, Neutrophils (%) (Auto) 66.0, Lymphocytes (%) (Auto) 15.6L, Monocytes (%) (Auto) 13.4H, Eosinophils (%) (Auto) 4.0H, Basophils (%) ( Auto) 0.9, Sodium Level 144, Potassium Level 4.1, Chloride Level 103, Carbon Dioxide Level 30, Anion Gap 11, Blood Urea Nitrogen 28H, Creatinine 1.5H, Estimat Glomerular Filtration Rate , Glucose Level 121H, Uric Acid 9.2H, Calcium Level 9.6, Phosphorus Level 3.4, Magnesium Level 2.1, Ferritin 113, Total Bilirubin 0.4, Gamma Glutamyl Transpeptidase 653H, Aspartate Amino Transf (AST/SGOT) 33, Alanine Aminotransferase (ALT/SGPT) 40, Alkaline Phosphatase 311H , C-Reactive Protein, Quantitative 1.0H, Pro-B-Type Natriuretic Peptide 156H, Total Protein 7.6, Albumin 3.8, Globulin 3.8, Albumin/Globulin Ratio 1.0, Triglycerides Level 213H, Cholesterol Level 153, LDL Cholesterol 80, HDL Cholesterol 30, Cholesterol/HDL Ratio 5.1H Height (Feet): 5 Height (Inches): 5.00 Weight (Pounds): 178 General Appearance: no apparent distress EENT: PERRL/EOMI Neck: normal alignment Cardiovascular: normal rate Respiratory/Chest: chest wall non-tender Abdomen: normal bowel sounds 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
[2017-01-09] VITALS: BP 150/76
--- NOTE | 2017-01-09 03:00 | Consultation ---
DATE OF CONSULTATION: 01/08/2017 INFECTIOUS DISEASE CONSULTATION REQUESTING PHYSICIAN: Good Sibley M.D. REASON FOR CONSULTATION: Pulmonary nodules. History Of Present Illness: This is a 76-year-old diabetic male, admitted on 01/06/2017 with abdominal pain and bloating x2 weeks. A CT scan of the abdomen and pelvis was ordered for further evaluation and is concerning for multiple pulmonary nodules visualized and portions of the lower lung field suspicious for metastatic neoplasm, nodular liver, prominent gallbladder wall, and left kidney nodule 1.7 cm. Fungal serology has been ordered to rule out fungal cause for pulmonary nodules and is pending. He is in isolation to rule out TB and his sputum AFB is pending. He is currently not receiving any antibiotics and ID now consulted to assist in management. PAST MEDICAL HISTORY: 1. Chronic kidney disease. 2. Diabetes type 2, uncontrolled. Hemoglobin A1c is 9%. 3. Benign prostatic hypertrophy. 4. Hiatal hernia. 5. Bilateral inguinal hernia. 6. Hypertension. 7. Hyperlipidemia. PAST SURGICAL HISTORY: 1. Cataract surgery. 2. Colonoscopy. ALLERGIES: 1. Atorvastatin. 2. Simvastatin. MEDICATIONS: 1. No antibiotics. 2. Crestor. 3. Norvasc. 4. Subcutaneous heparin. 5. Flomax. 6. Colace. 7. Gabapentin. FAMILY HISTORY: Reviewed and noncontributory. Social History: The patient is and lives locally with family. There is no history of tobacco use. Review Of Systems: As per history of present illness. Ten systems reviewed, all pertinent positives and negatives noted. PHYSICAL EXAMINATION: Vital Signs: Maximum temperature 98.2, blood pressure 141/69, heart rate in the 70s, respiratory rate 18, and saturating 92% on room air. GENERAL: No apparent distress. Nontoxic appearing. CARDIOVASCULAR: Regular rate and rhythm. No murmurs. PULMONARY: Clear to auscultation bilaterally. Abdominal: Bowel sounds present. Soft. Mild distention and tenderness. EXTREMITIES: No edema. SKIN: No rash. NEUROLOGICAL: Alert and oriented x3. Nonfocal. Laboratory Data: White blood cell count 6.8, hemoglobin 13.9, and platelets 233,000. Sodium 144, potassium 4.1, chloride 103, bicarbonate 30, BUN 28, and creatinine 1.5. Hemoglobin A1c is 9%. CRP is 1. Urinalysis is negative. INR is 1. LDH is 320. CEA is 5.5. CA 19-9 is 67.68, PSA 3.2, and TSH 2.28. MICROBIOLOGY: Sputum AFB is pending. Imaging: On 01/06/2017, CT of the abdomen and pelvis suspicion of metastatic neoplasm involving the lungs with multiple nodules was seen. A 1.6 cm hyperdense nodule in the left kidney. Proteinaceous cyst versus solid lesion. BPH. Bilateral inguinal hernias containing fat. Hiatal hernia. Infected gallbladder wall nonspecific in nature. ASSESSMENT: 1. Multiple lung nodules, rule out tuberculosis, fungal versus metastatic disease. The sputum acid-fast bacillus, T-spot, and fungal serology are pending. CEA, CA 19-9, and LDH are elevated and he has evidence of left adrenal nodule. 2. Afebrile without leukocytosis. 3. Left kidney hyperdense nodule measuring 1.7 cm to rule out malignancy. 4. Acute renal failure on chronic kidney disease, stage 3, improved. 5. Elevated liver function tests, improved. Evidence of a nodular enlarged liver and prominent gallbladder wall on CT imaging. 6. Diabetes type 2, uncontrolled with hemoglobin A1c of 9%. 7. No antibiotic allergies. 8. Full Code. PLAN: 1. Monitor the patient off of antibiotics for now. 2. We will recommend biopsy of a lung or renal lesion. 3. Follow up sputum AFB, fungal serology and Coccidioides serology. 4. Monitor CBC and temperatures. 5. Monitor BMP. 6. Monitor chest x-ray. 7. Airborne precautions pending sputum AFB. Thank you. We will follow. Janusz Kim M.D. DR: WILY JOB#: [id number] CC: Good Sibley M.D.; Fax#: [phone] Holley M.D; Fax#: [phone]
[2017-01-09 04:00] VITALS: BP 146/74
[2017-01-09] MEDS: NovoLOG Insulin Flexpen SUBQ SCH ×4 (05:59→21:00)
--- NOTE | 2017-01-09 07:09 | Infectious Diseases Prog Note ---
Assessment/Plan Assessment/Plan ASSESSMENT: 76 y/o male with: // Multiple lung nodules r/o TB, fungal vs metastatic disease - pending: CrAg, T-spot, Histoplasma, blastomyces, coccidioides - elevated CEA, CA 19-9, LDH, left renal nodule - CT A/P: multiple nodules within the visualized portions of the lower lung field. These are suspicious for metastatic neoplasm // Afebrile without leukocytosis // Left kidney hyperdense nodule measuring 1.7 cm r/o malignancy // ARF on CKD3 - improved // Elevated LFTs - improved - CT A/P: liver is nodular and enlarged. Gallbladder wall is prominent. // DM2 - HbA1c 9% // No ABX allergies // Full Code PLAN: - monitor off of ABX for now - biopsy lung vs renal - f/u sputum AFB, fungal serologies - monitor CBC, temperatures - monitor BMP - monitor CXR - airbourne precautions pending sputum AFB Subjective Allergies: Coded Allergies: ATORVASTATIN CALCIUM (Verified Adverse Reaction, MYAGLIA, 08/25/12) SIMVASTATIN (Verified Adverse Reaction, MYALGIA, 08/25/12) Subjective remains afebrile CT chest, AFB pending Objective Vital Signs Last 24 Hour Vital Signs Date Time Temp Pulse Resp B/P (MAP) Pulse Ox O2 Delivery O2 Flow Rate FiO2 01/09/17 04:00 97.9 80 18 146/74 93 Room Air 01/09/17 00:00 97.9 81 18 150/76 95 Room Air 01/08/17 20:22 79 18 Room Air 01/08/17 20:00 98.1 81 18 141/69 92 Room Air 01/08/17 16:00 97.9 73 18 140/65 92 Room Air 01/08/17 12:00 97.9 72 19 130/74 90 Room Air 01/08/17 09:05 70 147/68 01/08/17 08:26 71 16 Room Air 01/08/17 08:00 97.0 66 18 147/68 94 Room Air Height (Feet): 5 Height (Inches): 5.00 Weight (Pounds): 178 General Appearance: no acute distress Respiratory/Chest: no respiratory distress Cardiovascular: normal rate, regular rhythm Abdomen: normal bowel sounds, soft, non tender, non distended Current Medications Medications (Trade) Dose Ordered Sig/Sylvie Route PRN Reason Start Time Stop Time Status Last Admin Dose Admin Acetaminophen (Tylenol) 650 mg Q4H PRN ORAL T>100.5 01/07/17 17:00 02/05/17 16:59 Al Hydroxide/Mg Hydroxide (Mylanta II) 30 ml Q6H PRN ORAL dyspepsia 01/07/17 17:00 02/05/17 16:59 01/08/17 20:37 Albuterol/ Ipratropium (DuoNeb 0.5-3(2.5)mg/3ml) 3 ml Q6H PRN HHN dyspnea 01/07/17 17:00 01/11/17 16:59 Amlodipine Besylate (Norvasc) 10 mg DAILY ORAL 01/08/17 09:00 02/06/17 08:59 01/08/17 09:05 Clonidine HCl (Catapres) 0.1 mg Q4H PRN ORAL SBP>160mmHg 01/07/17 17:00 02/05/17 16:59 Dextrose (Dextrose 50%) STAT PRN IV Hypoglycemia 01/08/17 17:00 02/05/17 16:59 Docusate Sodium (Colace) 100 mg THREE TIMES A DAY ORAL 01/07/17 18:00 02/06/17 12:59 01/08/17 17:16 Gabapentin (Neurontin) 800 mg THREE TIMES A DAY ORAL 01/07/17 18:00 02/05/17 17:59 01/08/17 17:16 Heparin Sodium (Porcine) (Heparin 5000 units/ml) 5,000 units EVERY 12 HOURS SUBQ 01/07/17 21:00 02/05/17 20:59 01/08/17 20:48 Insulin Aspart (NovoLOG) BEFORE MEALS AND HS SUBQ 01/07/17 17:00 02/05/17 16:59 Morphine Sulfate (Morphine Sulfate) 1 mg Q4H PRN IVP PAIN 4-10 01/07/17 17:00 01/13/17 16:59 Ondansetron HCl (Zofran) 4 mg Q6H PRN IVP Nausea & Vomiting 01/07/17 17:00 02/05/17 16:59 Polyethylene Glycol (Miralax) 17 gm BEDTIME ORAL 01/07/17 21:00 02/06/17 20:59 01/08/17 20:41 Polyethylene Glycol (Miralax) 17 gm HSPRN PRN ORAL Constipation 01/08/17 21:00 02/05/17 20:59 Simethicone (Mylicon) 80 mg QIDPRN PRN ORAL GAS PAIN 01/07/17 17:00 02/06/17 16:59 Tamsulosin HCl (Flomax) 0.4 mg BEDTIME ORAL 01/07/17 21:00 02/05/17 20:59 01/08/17 20:40 Zolpidem Tartrate (Ambien) 5 mg HSPRN PRN ORAL Insomnia 01/07/17 21:00 01/14/17 20:59 ANDREY HERNANDEZ Jan 09, 2017 07:09
[2017-01-09 08:00] VITALS: BP 145/73
[2017-01-09] MEDS: Docusate 100mg cap ORAL SCH ×3 (09:01→17:42)
[2017-01-09] MEDS: Heparin 5000 units/ml inj SUBQ SCH ×2 (09:01→21:11)
--- NOTE | 2017-01-09 09:30 | General Progress Note ---
Assessment/Plan Problem List: (1) Diabetes mellitus ICD Codes: E11.9 - Type 2 diabetes mellitus without complications SNOMED: 74067465 (2) GERD (gastroesophageal reflux disease) ICD Codes: K21.9 - Gastro-esophageal reflux disease without esophagitis SNOMED: 710747889 (3) Elevated CEA ICD Codes: R97.0 - Elevated carcinoembryonic antigen [CEA] SNOMED: 95016008, 765579834 (4) Diabetes ICD Codes: E11.9 - Type 2 diabetes mellitus without complications SNOMED: 73046923 (5) HTN (hypertension) ICD Codes: I10 - Essential (primary) hypertension SNOMED: 66709496 (6) Pulmonary nodule ICD Codes: R91.1 - Solitary pulmonary nodule SNOMED: 122408607 (7) Elevated liver enzymes ICD Codes: R74.8 - Abnormal levels of other serum enzymes SNOMED: 165514840, 765496359 Assessment/Plan no abd pain today pending lung biopsy on isolation for possible TB GI procedures on hold for now ordered abd us and bone scan to eval for mets and elevated ALP Subjective ROS Limited/Unobtainable: Yes Allergies: Coded Allergies: ATORVASTATIN CALCIUM (Verified Adverse Reaction, MYAGLIA, 08/25/12) SIMVASTATIN (Verified Adverse Reaction, MYALGIA, 08/25/12) Subjective no abd pain Objective Last 24 Hour Vital Signs Date Time Temp Pulse Resp B/P (MAP) Pulse Ox O2 Delivery O2 Flow Rate FiO2 01/09/17 09:01 76 145/73 01/09/17 08:00 97.2 76 17 145/73 94 Room Air 01/09/17 07:36 76 18 Room Air 01/09/17 04:00 97.9 80 18 146/74 93 Room Air 01/09/17 00:00 97.9 81 18 150/76 95 Room Air 01/08/17 20:22 79 18 Room Air 01/08/17 20:00 98.1 81 18 141/69 92 Room Air 01/08/17 16:00 97.9 73 18 140/65 92 Room Air 01/08/17 12:00 97.9 72 19 130/74 90 Room Air Intake and Output 01/09/17 01/10/17 19:00 07:00 Intake Total 240 ml Balance 240 ml Intake Oral 240 ml Laboratory Tests 9/17/17 05:50: Coccidioides Antibody (Comp Fix) [Pending] Height (Feet): 5 Height (Inches): 5.00 Weight (Pounds): 178 General Appearance: alert EENT: normal ENT inspection Neck: supple Cardiovascular: normal rate Respiratory/Chest: lungs clear Abdomen: normal bowel sounds, non tender, soft Extremities: non-tender ESAU PASCUAL Jan 09, 2017 09:30
[2017-01-09 09:41] LABS: BASOPHILS % (AUTO) 0.6 % (0.0-2.0); EOSINOPHILS % (AUTO) 3.6 % (0.0-3.0); LYMPHOCYTES % (AUTO) 13.7 % (20.0-45.0); MEAN CORPUSCULAR HEMOGLOBIN 27.3 PG (27.0-31.0); MEAN CORPUSCULAR HGB CONC 30.3 G/DL (32.0-36.0); MEAN CORPUSCULAR VOLUME 90 FL (80-99); MONOCYTES % (AUTO) 9.6 % (1.0-10.0); NEUTROPHILS % (AUTO) 72.5 % (45.0-75.0); PLATELET COUNT 248 K/UL (150-450); RED CELL DISTRIBUTION WIDTH 13.5 % (11.6-14.8); WHITE BLOOD COUNT 7.4 K/UL (4.8-10.8)
[2017-01-09 10:04] LABS: ANION GAP 11 (5-15); CALCIUM 9.8 mg/dL (8.6-10.2); CARBON DIOXIDE 32 mEQ/L (20-30); CHLORIDE 98 mEQ/L (98-107); CREATININE 1.5 mg/dL (0.7-1.2); HEMOLYSIS 2; POTASSIUM 4.1 mEQ/L (3.4-4.9); SODIUM 141 mEQ/L (135-145)
[2017-01-09 12:00] VITALS: BP 148/73
[2017-01-09] MEDS: Glimepiride 4mg tab ORAL SCH ×2 (13:24→17:42)
[2017-01-09] MEDS: metFORMIN 500mg tab ORAL SCH ×2 (13:25→17:42)
--- NOTE | 2017-01-09 13:54 | Internal Med Progress Note ---
Subjective Date of Service: Jan 09, 2017 Physician Name JamesDesmond Attending Physician Good Sibley MD Current Medications Medications (Trade) Dose Ordered Sig/Sylvie Route PRN Reason Start Time Stop Time Status Last Admin Dose Admin Acetaminophen (Tylenol) 650 mg Q4H PRN ORAL T>100.5 01/07/17 17:00 02/05/17 16:59 Al Hydroxide/Mg Hydroxide (Mylanta II) 30 ml Q6H PRN ORAL dyspepsia 01/07/17 17:00 02/05/17 16:59 01/08/17 20:37 Albuterol/ Ipratropium (DuoNeb 0.5-3(2.5)mg/3ml) 3 ml Q6H PRN HHN dyspnea 01/07/17 17:00 01/11/17 16:59 Amlodipine Besylate (Norvasc) 10 mg DAILY ORAL 01/08/17 09:00 02/06/17 08:59 01/09/17 09:01 Clonidine HCl (Catapres) 0.1 mg Q4H PRN ORAL SBP>160mmHg 01/07/17 17:00 02/05/17 16:59 Dextrose (Dextrose 50%) STAT PRN IV Hypoglycemia 01/08/17 17:00 02/05/17 16:59 Docusate Sodium (Colace) 100 mg THREE TIMES A DAY ORAL 01/07/17 18:00 02/06/17 12:59 01/09/17 13:24 Gabapentin (Neurontin) 800 mg THREE TIMES A DAY ORAL 01/07/17 18:00 02/05/17 17:59 01/09/17 13:24 Glimepiride (Amaryl) 4 mg BID ORAL 01/09/17 12:30 02/08/17 12:29 01/09/17 13:24 Heparin Sodium (Porcine) (Heparin 5000 units/ml) 5,000 units EVERY 12 HOURS SUBQ 01/07/17 21:00 02/05/17 20:59 01/09/17 09:01 Hydrochlorothiazide (Hydrodiuril) 12.5 mg DAILY ORAL 01/09/17 13:45 02/08/17 13:44 Insulin Aspart (NovoLOG) BEFORE MEALS AND HS SUBQ 01/07/17 17:00 02/05/17 16:59 Metformin HCl (Glucophage) 750 mg BID ORAL 01/09/17 12:30 02/08/17 12:29 01/09/17 13:25 Morphine Sulfate (Morphine Sulfate) 1 mg Q4H PRN IVP PAIN 4-10 01/07/17 17:00 01/13/17 16:59 Ondansetron HCl (Zofran) 4 mg Q6H PRN IVP Nausea & Vomiting 01/07/17 17:00 02/05/17 16:59 Polyethylene Glycol (Miralax) 17 gm BEDTIME ORAL 01/07/17 21:00 02/06/17 20:59 01/08/17 20:41 Polyethylene Glycol (Miralax) 17 gm HSPRN PRN ORAL Constipation 01/08/17 21:00 02/05/17 20:59 Ranitidine HCl (Zantac) 300 mg DAILY ORAL 01/09/17 13:45 02/08/17 13:44 Simethicone (Mylicon) 80 mg QIDPRN PRN ORAL GAS PAIN 01/07/17 17:00 02/06/17 16:59 Sitagliptin Phosphate (Januvia) 100 mg DAILY ORAL 01/09/17 12:30 02/08/17 12:29 01/09/17 13:24 Tamsulosin HCl (Flomax) 0.4 mg BEDTIME ORAL 01/07/17 21:00 02/05/17 20:59 01/08/17 20:40 Zolpidem Tartrate (Ambien) 5 mg HSPRN PRN ORAL Insomnia 01/07/17 21:00 01/14/17 20:59 Allergies: Coded Allergies: ATORVASTATIN CALCIUM (Verified Adverse Reaction, MYAGLIA, 08/25/12) SIMVASTATIN (Verified Adverse Reaction, MYALGIA, 08/25/12) ROS Limited/Unobtainable: No Constitutional: Reports: no symptoms HEENT: Reports: no symptoms Cardiovascular: Reports: no symptoms Respiratory: Reports: no symptoms Gastrointestinal/Abdominal: Reports: abdomen distended, abdominal pain Genitourinary: Reports: no symptoms Neurologic/Psychiatric: Reports: no symptoms Subjective 76 YO M admitted with abdominal pain and bloating. Now lung masses. Await biopsy of pulmonary nodules and abdominal ultrasound. Cover for Int Hansel-Dr Sibley. Objective Last Vital Signs Date Time Temp Pulse Resp B/P (MAP) Pulse Ox O2 Delivery O2 Flow Rate FiO2 9/17/17 12:00 97.7 70 19 148/73 94 Room Air Laboratory Tests Test 01/09/17 09:30 White Blood Count 7.4 K/UL (4.8-10.8) Red Blood Count 5.00 M/UL (4.70-6.10) Hemoglobin 13.7 G/DL (14.2-18.0) L Hematocrit 45.1 % (42.0-52.0) Mean Corpuscular Volume 90 FL (80-99) Mean Corpuscular Hemoglobin 27.3 PG (27.0-31.0) Mean Corpuscular Hemoglobin Concent 30.3 G/DL (32.0-36.0) L Red Cell Distribution Width 13.5 % (11.6-14.8) Platelet Count 248 K/UL (150-450) Mean Platelet Volume 9.0 FL (6.5-10.1) Neutrophils (%) (Auto) 72.5 % (45.0-75.0) Lymphocytes (%) (Auto) 13.7 % (20.0-45.0) L Monocytes (%) (Auto) 9.6 % (1.0-10.0) Eosinophils (%) (Auto) 3.6 % (0.0-3.0) H Basophils (%) (Auto) 0.6 % (0.0-2.0) Sodium Level 141 mEQ/L (135-145) Potassium Level 4.1 mEQ/L (3.4-4.9) Chloride Level 98 mEQ/L (98-107) Carbon Dioxide Level 32 mEQ/L (20-30) H Anion Gap 11 (5-15) Blood Urea Nitrogen 30 mg/dL (7-23) H Creatinine 1.5 mg/dL (0.7-1.2) H Estimat Glomerular Filtration Rate mL/min (>60) Glucose Level 300 mg/dL (74-106) #H Calcium Level 9.8 mg/dL (8.6-10.2) Coccidioides Antibody (Comp Fix) Pending Intake and Output 01/09/17 01/10/17 19:00 07:00 Intake Total 240 ml Balance 240 ml Intake Oral 240 ml Objective General Appearance: WD/WN, no apparent distress, alert EENT: PERRL/EOMI, TMs normal Neck: non-tender, normal alignment, supple, normal inspection Cardiovascular: normal peripheral pulses, normal rate, regular rhythm, no gallop/murmur, no JVD Respiratory/Chest: chest wall non-tender, no respiratory distress, no accessory muscle use, decreased breath sounds, crackles/rales Abdomen: soft, no organomegaly, no mass, decreased bowel sounds, distended Extremities: normal range of motion Neurologic: custom clothier II-XII grossly normal, no motor/sensory deficits Skin: normal pigmentation, warm/dry Assessment/Plan Problem List: (1) Hypercholesteremia (2) Pain, abdominal Assessment & Plan: See GI note. (3) Elevated liver enzymes (4) Renal failure Assessment & Plan: See nephrology note. (5) HTN (hypertension) Assessment & Plan: Cont norvasc. (6) Diabetes mellitus Assessment & Plan: D/C metformin. Cont novolog sliding scale. (7) Abdominal distention (8) Elevated CEA Assessment & Plan: Await abdominal ultrasound. See GI note. (9) Lung mass Assessment & Plan: ?TB vs neoplasm? Await biopsy and AFB cultures . See onc and pulm note. Followed by ID-continue respiratory isolation. Status: progressing DESMOND JAMES Jan 09, 2017 13:54
--- NOTE | 2017-01-09 15:03 | General Progress Note ---
Assessment/Plan Status: stable - from renal stand Assessment/Plan (1) Pulmonary nodule ? Mets- ---High CA-19-9 level (2) Renal failure Cr 1.7 now down to 1.5 today ? Acute on chronic DM and HTN + Proteinuria) (3) Hyperkalemia, K of 5.1 on admit , now normalized (4) Abdominal distention , presentation symptom (5) Diabetes mellitus (6) HTN (hypertension) (7) High Cholestrol Plan: Per consultants- Hydrate- avoid nephrotoxics- Stop Metformin monitor renal parameters pending lung biopsy on isolation for possible TB Subjective ROS Limited/Unobtainable: No Constitutional: Reports: malaise Allergies: Coded Allergies: ATORVASTATIN CALCIUM (Verified Adverse Reaction, MYAGLIA, 08/25/12) SIMVASTATIN (Verified Adverse Reaction, MYALGIA, 08/25/12) Objective Last 24 Hour Vital Signs Date Time Temp Pulse Resp B/P (MAP) Pulse Ox O2 Delivery O2 Flow Rate FiO2 01/09/17 12:00 97.7 70 19 148/73 94 Room Air 01/09/17 09:01 76 145/73 01/09/17 08:00 97.2 76 17 145/73 94 Room Air 01/09/17 07:36 76 18 Room Air 01/09/17 04:00 97.9 80 18 146/74 93 Room Air 01/09/17 00:00 97.9 81 18 150/76 95 Room Air 01/08/17 20:22 79 18 Room Air 01/08/17 20:00 98.1 81 18 141/69 92 Room Air 01/08/17 16:00 97.9 73 18 140/65 92 Room Air Intake and Output 01/09/17 01/10/17 19:00 07:00 Intake Total 240 ml Balance 240 ml Intake Oral 240 ml Laboratory Tests 01/09/17 09:30: White Blood Count 7.4, Red Blood Count 5.00, Hemoglobin 13.7L, Hematocrit 45.1, Mean Corpuscular Volume 90, Mean Corpuscular Hemoglobin 27.3, Mean Corpuscular Hemoglobin Concent 30.3L, Red Cell Distribution Width 13.5, Platelet Count 248, Mean Platelet Volume 9.0, Neutrophils (%) (Auto) 72.5, Lymphocytes (%) (Auto) 13.7L, Monocytes (%) (Auto) 9.6, Eosinophils (%) (Auto) 3.6H, Basophils (%) ( Auto) 0.6, Sodium Level 141, Potassium Level 4.1, Chloride Level 98, Carbon Dioxide Level 32H, Anion Gap 11, Blood Urea Nitrogen 30H, Creatinine 1.5H, Estimat Glomerular Filtration Rate , Glucose Level 300#H, Calcium Level 9.8, Coccidioides Antibody (Comp Fix) [Pending] Height (Feet): 5 Height (Inches): 5.00 Weight (Pounds): 178 General Appearance: no apparent distress Objective no change in PE PAUL GORDILLO Jan 09, 2017 15:03
--- NOTE | 2017-01-09 15:29 | General Progress Note ---
Assessment/Plan Assessment/Plan ASSESSMENT AND PLAN: 1. Lung nodules, concerning for metastatic disease. Obtain a biopsy. --> chest ct with contrast done, pending final report --> CEA and CA 19-9 is elevated 2. Multiple lung nodules --> rule out fungal infection --> rule out TB, AFB pending 2. Anemia secondary to chronic disease, mild at this time. 3. Abdominal pain, resolved. 4. Renal failure, continue to closely monitor. 5. Lower back pain Subjective Constitutional: Reports: no symptoms HEENT: Reports: no symptoms Cardiovascular: Reports: no symptoms Respiratory: Reports: no symptoms Gastrointestinal/Abdominal: Reports: no symptoms Genitourinary: Reports: no symptoms Neurologic/Psychiatric: Reports: no symptoms Endocrine: Reports: no symptoms Hematologic/Lymphatic: Reports: anemia Allergies: Coded Allergies: ATORVASTATIN CALCIUM (Verified Adverse Reaction, MYAGLIA, 08/25/12) SIMVASTATIN (Verified Adverse Reaction, MYALGIA, 08/25/12) Subjective no fever, no bleeding Objective Last 24 Hour Vital Signs Date Time Temp Pulse Resp B/P (MAP) Pulse Ox O2 Delivery O2 Flow Rate FiO2 01/09/17 12:00 97.7 70 19 148/73 94 Room Air 01/09/17 09:01 76 145/73 01/09/17 08:00 97.2 76 17 145/73 94 Room Air 01/09/17 07:36 76 18 Room Air 01/09/17 04:00 97.9 80 18 146/74 93 Room Air 01/09/17 00:00 97.9 81 18 150/76 95 Room Air 01/08/17 20:22 79 18 Room Air 01/08/17 20:00 98.1 81 18 141/69 92 Room Air 01/08/17 16:00 97.9 73 18 140/65 92 Room Air Intake and Output 01/09/17 01/10/17 19:00 07:00 Intake Total 240 ml Balance 240 ml Intake Oral 240 ml Laboratory Tests 01/09/17 09:30: White Blood Count 7.4, Red Blood Count 5.00, Hemoglobin 13.7L, Hematocrit 45.1, Mean Corpuscular Volume 90, Mean Corpuscular Hemoglobin 27.3, Mean Corpuscular Hemoglobin Concent 30.3L, Red Cell Distribution Width 13.5, Platelet Count 248, Mean Platelet Volume 9.0, Neutrophils (%) (Auto) 72.5, Lymphocytes (%) (Auto) 13.7L, Monocytes (%) (Auto) 9.6, Eosinophils (%) (Auto) 3.6H, Basophils (%) ( Auto) 0.6, Sodium Level 141, Potassium Level 4.1, Chloride Level 98, Carbon Dioxide Level 32H, Anion Gap 11, Blood Urea Nitrogen 30H, Creatinine 1.5H, Estimat Glomerular Filtration Rate , Glucose Level 300#H, Calcium Level 9.8, Coccidioides Antibody (Comp Fix) [Pending] Height (Feet): 5 Height (Inches): 5.00 Weight (Pounds): 178 General Appearance: WD/WN, no apparent distress EENT: normal ENT inspection, TMs normal Neck: normal alignment Cardiovascular: normal peripheral pulses, regular rhythm Extremities: non-tender Skin: warm/dry Yemi Geiger Jan 09, 2017 15:29
--- NOTE | 2017-01-09 15:59 | Cardiology Report ---
APPROVED REPORT EKG Measurement Heart [id number] Normal sinus rhythm Normal ECG
[2017-01-09 16:00] VITALS: BP 141/62
--- NOTE | 2017-01-09 16:12 | Pulmonology Progress Note ---
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 borderline high awaiting liver biopsy tumor markers are elevated Subjective ROS Limited/Unobtainable: No Allergies: Coded Allergies: ATORVASTATIN CALCIUM (Verified Adverse Reaction, MYAGLIA, 08/25/12) SIMVASTATIN (Verified Adverse Reaction, MYALGIA, 08/25/12) Objective Last 24 Hour Vital Signs Date Time Temp Pulse Resp B/P (MAP) Pulse Ox O2 Delivery O2 Flow Rate FiO2 01/09/17 16:00 97.9 76 18 141/62 93 Room Air 01/09/17 12:00 97.7 70 19 148/73 94 Room Air 01/09/17 09:01 76 145/73 01/09/17 08:00 97.2 76 17 145/73 94 Room Air 01/09/17 07:36 76 18 Room Air 01/09/17 04:00 97.9 80 18 146/74 93 Room Air 01/09/17 00:00 97.9 81 18 150/76 95 Room Air 01/08/17 20:22 79 18 Room Air 01/08/17 20:00 98.1 81 18 141/69 92 Room Air Intake and Output 01/09/17 01/10/17 19:00 07:00 Intake Total 240 ml Balance 240 ml Intake Oral 240 ml Objective General Appearance: WD/WN HEENT: normocephalic, atraumatic Respiratory/Chest: chest wall non-tender, lungs clear Cardiovascular: normal peripheral pulses, normal rate Abdomen: normal bowel sounds, soft, non tender Genitourinary: normal external genitalia Extremities: no cyanosis Skin: no rash 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, no motor/sensory deficits Laboratory Tests 01/09/17 09:30: White Blood Count 7.4, Red Blood Count 5.00, Hemoglobin 13.7L, Hematocrit 45.1, Mean Corpuscular Volume 90, Mean Corpuscular Hemoglobin 27.3, Mean Corpuscular Hemoglobin Concent 30.3L, Red Cell Distribution Width 13.5, Platelet Count 248, Mean Platelet Volume 9.0, Neutrophils (%) (Auto) 72.5, Lymphocytes (%) (Auto) 13.7L, Monocytes (%) (Auto) 9.6, Eosinophils (%) (Auto) 3.6H, Basophils (%) ( Auto) 0.6, Sodium Level 141, Potassium Level 4.1, Chloride Level 98, Carbon Dioxide Level 32H, Anion Gap 11, Blood Urea Nitrogen 30H, Creatinine 1.5H, Estimat Glomerular Filtration Rate , Glucose Level 300#H, Calcium Level 9.8, Coccidioides Antibody (Comp Fix) [Pending] Current Medications Medications (Trade) Dose Ordered Sig/Sylvie Route PRN Reason Start Time Stop Time Status Last Admin Dose Admin Acetaminophen (Tylenol) 650 mg Q4H PRN ORAL T>100.5 01/07/17 17:00 02/05/17 16:59 Al Hydroxide/Mg Hydroxide (Mylanta II) 30 ml Q6H PRN ORAL dyspepsia 01/07/17 17:00 02/05/17 16:59 01/08/17 20:37 Albuterol/ Ipratropium (DuoNeb 0.5-3(2.5)mg/3ml) 3 ml Q6H PRN HHN dyspnea 01/07/17 17:00 01/11/17 16:59 Amlodipine Besylate (Norvasc) 10 mg DAILY ORAL 01/08/17 09:00 02/06/17 08:59 01/09/17 09:01 Clonidine HCl (Catapres) 0.1 mg Q4H PRN ORAL SBP>160mmHg 01/07/17 17:00 02/05/17 16:59 Dextrose (Dextrose 50%) STAT PRN IV Hypoglycemia 01/08/17 17:00 02/05/17 16:59 Docusate Sodium (Colace) 100 mg THREE TIMES A DAY ORAL 01/07/17 18:00 02/06/17 12:59 01/09/17 13:24 Gabapentin (Neurontin) 800 mg THREE TIMES A DAY ORAL 01/07/17 18:00 02/05/17 17:59 01/09/17 13:24 Glimepiride (Amaryl) 4 mg BID ORAL 01/09/17 12:30 02/08/17 12:29 01/09/17 13:24 Heparin Sodium (Porcine) (Heparin 5000 units/ml) 5,000 units EVERY 12 HOURS SUBQ 01/07/17 21:00 02/05/17 20:59 01/09/17 09:01 Hydrochlorothiazide (Hydrodiuril) 12.5 mg DAILY ORAL 01/09/17 13:45 02/08/17 13:44 01/09/17 14:14 Insulin Aspart (NovoLOG) BEFORE MEALS AND HS SUBQ 01/07/17 17:00 02/05/17 16:59 Metformin HCl (Glucophage) 750 mg BID ORAL 01/09/17 12:30 02/08/17 12:29 01/09/17 13:25 Morphine Sulfate (Morphine Sulfate) 1 mg Q4H PRN IVP PAIN 4-10 01/07/17 17:00 01/13/17 16:59 Ondansetron HCl (Zofran) 4 mg Q6H PRN IVP Nausea & Vomiting 01/07/17 17:00 02/05/17 16:59 Polyethylene Glycol (Miralax) 17 gm BEDTIME ORAL 01/07/17 21:00 02/06/17 20:59 01/08/17 20:41 Polyethylene Glycol (Miralax) 17 gm HSPRN PRN ORAL Constipation 01/08/17 21:00 02/05/17 20:59 Ranitidine HCl (Zantac) 300 mg DAILY ORAL 01/09/17 13:45 02/08/17 13:44 01/09/17 14:14 Simethicone (Mylicon) 80 mg QIDPRN PRN ORAL GAS PAIN 01/07/17 17:00 02/06/17 16:59 Sitagliptin Phosphate (Januvia) 100 mg DAILY ORAL 01/09/17 12:30 02/08/17 12:29 01/09/17 13:24 Tamsulosin HCl (Flomax) 0.4 mg BEDTIME ORAL 01/07/17 21:00 02/05/17 20:59 01/08/17 20:40 Zolpidem Tartrate (Ambien) 5 mg HSPRN PRN ORAL Insomnia 01/07/17 21:00 01/14/17 20:59 ANURADHA IYER Jan 09, 2017 16:12
[2017-01-09 20:00] VITALS: BP 147/63
[2017-01-09] MEDS: Tamsulosin 0.4mg cap ORAL SCH (20:59)
[2017-01-09] MEDS: Miralax 17gm pkt ORAL SCH (20:59)
[2017-01-09] MEDS: Mylanta II UD 30ml ORAL PRN (21:28)
[2017-01-10] VITALS (11 sets, daily range): BP systolic 134–153; BP diastolic 66–76
[2017-01-10] MEDS: Simethicone 80mg tab ORAL PRN ×2 (04:00→20:33)
[2017-01-10] MEDS: NovoLOG Insulin Flexpen SUBQ SCH ×4 (06:30→20:29)
[2017-01-10 06:54] LABS: BASOPHILS % (AUTO) 0.8 % (0.0-2.0); EOSINOPHILS % (AUTO) 3.1 % (0.0-3.0); LYMPHOCYTES % (AUTO) 13.7 % (20.0-45.0); MEAN CORPUSCULAR HEMOGLOBIN 28.8 PG (27.0-31.0); MEAN CORPUSCULAR HGB CONC 31.9 G/DL (32.0-36.0); MEAN CORPUSCULAR VOLUME 90 FL (80-99); MEAN PLATELET VOLUME 9.9 FL (6.5-10.1); MONOCYTES % (AUTO) 10.6 % (1.0-10.0); NEUTROPHILS % (AUTO) 71.7 % (45.0-75.0); PLATELET COUNT 219 K/UL (150-450); RED BLOOD COUNT 4.49 M/UL (4.70-6.10); RED CELL DISTRIBUTION WIDTH 13.5 % (11.6-14.8); WHITE BLOOD COUNT 7.3 K/UL (4.8-10.8)
[2017-01-10 07:03] LABS: ALANINE AMINOTRANSFERASE 49 U/L (3-41); ALBUMIN/GLOBULIN RATIO 1.2 (1.0-2.7); ANION GAP 12 (5-15); ASPARTATE AMINO TRANSFERASE 47 U/L (5-40); CALCIUM 10.8 mg/dL (8.6-10.2); CARBON DIOXIDE 29 mEQ/L (20-30); CHLORIDE 99 mEQ/L (98-107); CREATININE 1.4 mg/dL (0.7-1.2); HEMOLYSIS 0; POTASSIUM 3.9 mEQ/L (3.4-4.9); SODIUM 140 mEQ/L (135-145); TOTAL PROTEIN 7.3 g/dL (6.6-8.7)
--- NOTE | 2017-01-10 07:55 | Diagnostic Imaging Report ---
Clinical Indication: Chest pain, multiple lung nodules incidentally noted on recent abdomen pelvis CT Technique: IV administration nonionic contrast. Spiral acquisition obtained through the chest. Multiplanar reconstructions generated. Total dose length product and 71 mGycm. CTDIvol(s) 8, 89, 21 mGy. Dose reduction achieved using automated exposure control Comparison: Reference made to abdomen pelvis noncontrast CT dated 01/06/2017 Findings: The lungs demonstrate multiple nodules scattered thrombosed lungs with a somewhat predominantly peripheral distribution., including the basilar nodules described on recent abdomen pelvis CT. The largest of these is in the periphery of the inferior right upper lobe, adjacent to the minor fissure, measures 9 mm long axis dimension. No infiltrate. There is trace pleural fluid on the right. No pleural fluid is seen on the left. There is a 13 mm nodule within the pericardial fat pad to the right of the heart just above the diaphragm. No mediastinal lymphadenopathy. The thyroid demonstrates a few calcifications, is diffusely somewhat enlarged. No axillary or chest wall mass or adenopathy. The bones demonstrate degenerative spondylosis changes. The heart size is upper limits of normal. There is a questionable small sliding-type hiatal hernia The included upper abdominal anatomy is remarkable for the presence of multiple masses within the liver, measuring up to 4.7 cm in diameter. This is equivocally evident on the earlier study in retrospect but much more apparent on the current postcontrast images. As previously described, there is suggestion of hepatic surface nodularity. Impression: Multiple subcentimeter nodules throughout both lungs, as described. Findings are concerning for disseminated pulmonary metastases Trace right pleural effusion Multiple hepatic masses, better seen on the current exam due to infusion of intravenous contrast. Most likely represents multiple hepatic metastases. Evidence of adenopathy within the right pericardial fat pad Hepatic surface nodularity, possibly representing cirrhotic change, also previously described Questionable small sliding-type hiatal hernia Incidental finding of thyroid calcifications and diffusely mildly enlarged thyroid. No further followup necessary Incidental finding of degenerative thoracic spondylosis The CT scanner at [facility] is accredited by the [employer] and the scans are performed using protocols designed to limit radiation exposure to as low as reasonably achievable to attain images of sufficient resolution adequate for diagnostic evaluation.
[2017-01-10] MEDS: Heparin 5000 units/ml inj SUBQ SCH ×3 (09:00→20:30)
[2017-01-10] MEDS: Glimepiride 4mg tab ORAL SCH ×2 (09:15→17:42)
[2017-01-10] MEDS: Docusate 100mg cap ORAL SCH ×3 (09:15→17:40)
[2017-01-10] MEDS: Mylanta II UD 30ml ORAL PRN (09:16)
[2017-01-10] MEDS: metFORMIN 500mg tab ORAL SCH ×2 (09:16→17:42)
--- NOTE | 2017-01-10 09:59 | GI Progress Note ---
Assessment/Plan Problems: (1) Lung mass ICD Codes: R91.8 - Other nonspecific abnormal finding of lung field SNOMED: 368166920 (2) Elevated liver enzymes ICD Codes: R74.8 - Abnormal levels of other serum enzymes SNOMED: 933798715, 591875899 (3) Pain, abdominal ICD Codes: R10.9 - Unspecified abdominal pain SNOMED: 00460932 (4) Metastatic lung cancer (metastasis from lung to other site) ICD Codes: C34.90 - Malignant neoplasm of unspecified part of unspecified bronchus or lung SNOMED: 048571154, 20617896 (5) Diabetes ICD Codes: E11.9 - Type 2 diabetes mellitus without complications SNOMED: 11351944 (6) High serum carbohydrate antigen 19-9 (CA19-9) ICD Codes: R79.89 - Other specified abnormal findings of blood chemistry SNOMED: 555232170, 618995536 (7) Elevated CEA ICD Codes: R97.0 - Elevated carcinoembryonic antigen [CEA] SNOMED: 17939100, 819009084 (8) GERD (gastroesophageal reflux disease) ICD Codes: K21.9 - Gastro-esophageal reflux disease without esophagitis SNOMED: 341206308 (9) Diabetes mellitus ICD Codes: E11.9 - Type 2 diabetes mellitus without complications SNOMED: 13716985 (10) Abdominal distention ICD Codes: R14.0 - Abdominal distension (gaseous) SNOMED: 39298317 Status: unchanged Status Narrative Discussed with Dr. March. Assessment/Plan CT AP reviewed >> multiple lung nodules. hypertrophic prostate. hiatal hernia , see full report. elevated CEA 5.5 elevated CA19-9 >> 70 s/p colonoscopy at [facility] approx 3 years ago >> will obtain records fu onc recs pending lung biopsy vs liver biopsy on isolation for possible TB bowel regime >> colace + miralax simethicone prn renal DM diet after studies ppi fu labs GI procedures on hold for now fu abd us and bone scan to eval for mets and elevated ALP Subjective Gastrointestinal/Abdominal: Reports: no symptoms Objective Last 24 Hour Vital Signs Date Time Temp Pulse Resp B/P (MAP) Pulse Ox O2 Delivery O2 Flow Rate FiO2 01/10/17 09:17 69 146/73 01/10/17 07:34 83 18 Room Air 01/10/17 04:00 97.7 81 20 135/72 95 Room Air 01/10/17 00:00 98.0 77 17 144/69 94 Room Air 01/09/17 20:00 97.9 80 18 147/63 95 Room Air 01/09/17 19:53 75 18 Room Air 01/09/17 16:00 97.9 76 18 141/62 93 Room Air 01/09/17 12:00 97.7 70 19 148/73 94 Room Air Laboratory Tests Test 01/10/17 04:35 White Blood Count 7.3 K/UL (4.8-10.8) Red Blood Count 4.49 M/UL (4.70-6.10) L Hemoglobin 12.9 G/DL (14.2-18.0) L Hematocrit 40.4 % (42.0-52.0) L Mean Corpuscular Volume 90 FL (80-99) Mean Corpuscular Hemoglobin 28.8 PG (27.0-31.0) Mean Corpuscular Hemoglobin Concent 31.9 G/DL (32.0-36.0) L Red Cell Distribution Width 13.5 % (11.6-14.8) Platelet Count 219 K/UL (150-450) Mean Platelet Volume 9.9 FL (6.5-10.1) Neutrophils (%) (Auto) 71.7 % (45.0-75.0) Lymphocytes (%) (Auto) 13.7 % (20.0-45.0) L Monocytes (%) (Auto) 10.6 % (1.0-10.0) H Eosinophils (%) (Auto) 3.1 % (0.0-3.0) H Basophils (%) (Auto) 0.8 % (0.0-2.0) Sodium Level 140 mEQ/L (135-145) Potassium Level 3.9 mEQ/L (3.4-4.9) Chloride Level 99 mEQ/L (98-107) Carbon Dioxide Level 29 mEQ/L (20-30) Anion Gap 12 (5-15) Blood Urea Nitrogen 26 mg/dL (7-23) H Creatinine 1.4 mg/dL (0.7-1.2) H Estimat Glomerular Filtration Rate mL/min (>60) Glucose Level 125 mg/dL (74-106) #H Calcium Level 10.8 mg/dL (8.6-10.2) H Total Bilirubin 0.5 mg/dL (0.0-1.2) Aspartate Amino Transf (AST/SGOT) 47 U/L (5-40) H Alanine Aminotransferase (ALT/SGPT) 49 U/L (3-41) H Alkaline Phosphatase 341 U/L (40-129) H Total Protein 7.3 g/dL (6.6-8.7) Albumin 4.1 g/dL (3.5-5.2) Globulin 3.2 g/dL Albumin/Globulin Ratio 1.2 (1.0-2.7) Height (Feet): 5 Height (Inches): 5.00 Weight (Pounds): 178 General Appearance: no apparent distress, alert Cardiovascular: normal rate Respiratory/Chest: normal breath sounds, no respiratory distress Abdominal Exam: normal bowel sounds, non tender, soft Extremities: normal range of motion Janie Gregg N.P. Jan 10, 2017 09:59
--- NOTE | 2017-01-10 10:48 | Internal Med Progress Note ---
Subjective Date of Service: Jan 10, 2017 Physician Name James,Desmond Attending Physician Good Sibley MD Current Medications Medications (Trade) Dose Ordered Sig/Sylvie Route PRN Reason Start Time Stop Time Status Last Admin Dose Admin Acetaminophen (Tylenol) 650 mg Q4H PRN ORAL T>100.5 01/07/17 17:00 02/05/17 16:59 Al Hydroxide/Mg Hydroxide (Mylanta II) 30 ml Q6H PRN ORAL dyspepsia 01/07/17 17:00 02/05/17 16:59 01/10/17 09:16 Albuterol/ Ipratropium (DuoNeb 0.5-3(2.5)mg/3ml) 3 ml Q6H PRN HHN dyspnea 01/07/17 17:00 01/11/17 16:59 Amlodipine Besylate (Norvasc) 10 mg DAILY ORAL 01/08/17 09:00 02/06/17 08:59 01/10/17 09:17 Clonidine HCl (Catapres) 0.1 mg Q4H PRN ORAL SBP>160mmHg 01/07/17 17:00 02/05/17 16:59 Dextrose (Dextrose 50%) STAT PRN IV Hypoglycemia 01/08/17 17:00 02/05/17 16:59 Docusate Sodium (Colace) 100 mg THREE TIMES A DAY ORAL 01/07/17 18:00 02/06/17 12:59 01/10/17 09:15 Gabapentin (Neurontin) 800 mg THREE TIMES A DAY ORAL 01/07/17 18:00 02/05/17 17:59 01/10/17 09:16 Glimepiride (Amaryl) 4 mg BID ORAL 01/09/17 12:30 02/08/17 12:29 01/10/17 09:15 Heparin Sodium (Porcine) (Heparin 5000 units/ml) 5,000 units EVERY 12 HOURS SUBQ 01/07/17 21:00 02/05/17 20:59 01/10/17 09:18 Hydrochlorothiazide (Hydrodiuril) 12.5 mg DAILY ORAL 01/09/17 13:45 02/08/17 13:44 01/10/17 09:17 Insulin Aspart (NovoLOG) BEFORE MEALS AND HS SUBQ 01/07/17 17:00 02/05/17 16:59 Metformin HCl (Glucophage) 750 mg BID ORAL 01/09/17 12:30 02/08/17 12:29 01/10/17 09:16 Morphine Sulfate (Morphine Sulfate) 1 mg Q4H PRN IVP PAIN 4-10 01/07/17 17:00 01/13/17 16:59 Ondansetron HCl (Zofran) 4 mg Q6H PRN IVP Nausea & Vomiting 01/07/17 17:00 02/05/17 16:59 Polyethylene Glycol (Miralax) 17 gm BEDTIME ORAL 01/07/17 21:00 02/06/17 20:59 01/09/17 20:59 Polyethylene Glycol (Miralax) 17 gm HSPRN PRN ORAL Constipation 01/08/17 21:00 02/05/17 20:59 Ranitidine HCl (Zantac) 300 mg DAILY ORAL 01/09/17 13:45 02/08/17 13:44 01/10/17 09:16 Simethicone (Mylicon) 80 mg QIDPRN PRN ORAL GAS PAIN 01/07/17 17:00 02/06/17 16:59 01/10/17 04:00 Sitagliptin Phosphate (Januvia) 100 mg DAILY ORAL 01/09/17 12:30 02/08/17 12:29 01/10/17 09:16 Tamsulosin HCl (Flomax) 0.4 mg BEDTIME ORAL 01/07/17 21:00 02/05/17 20:59 01/09/17 20:59 Zolpidem Tartrate (Ambien) 5 mg HSPRN PRN ORAL Insomnia 01/07/17 21:00 01/14/17 20:59 Allergies: Coded Allergies: ATORVASTATIN CALCIUM (Verified Adverse Reaction, MYAGLIA, 08/25/12) SIMVASTATIN (Verified Adverse Reaction, MYALGIA, 08/25/12) ROS Limited/Unobtainable: No Constitutional: Reports: no symptoms HEENT: Reports: no symptoms Cardiovascular: Reports: no symptoms Respiratory: Reports: no symptoms Gastrointestinal/Abdominal: Reports: abdomen distended, abdominal pain Genitourinary: Reports: no symptoms Neurologic/Psychiatric: Reports: no symptoms Subjective 76 YO M admitted with abdominal pain and bloating. Now lung masses. Await biopsy of pulmonary nodules. Cover for Int Med-Dr Sibley. Objective Last Vital Signs Date Time Temp Pulse Resp B/P (MAP) Pulse Ox O2 Delivery O2 Flow Rate FiO2 01/10/17 09:17 69 146/73 01/10/17 07:34 18 Room Air 01/10/17 04:00 97.7 95 Laboratory Tests Test 01/10/17 04:35 White Blood Count 7.3 K/UL (4.8-10.8) Red Blood Count 4.49 M/UL (4.70-6.10) L Hemoglobin 12.9 G/DL (14.2-18.0) L Hematocrit 40.4 % (42.0-52.0) L Mean Corpuscular Volume 90 FL (80-99) Mean Corpuscular Hemoglobin 28.8 PG (27.0-31.0) Mean Corpuscular Hemoglobin Concent 31.9 G/DL (32.0-36.0) L Red Cell Distribution Width 13.5 % (11.6-14.8) Platelet Count 219 K/UL (150-450) Mean Platelet Volume 9.9 FL (6.5-10.1) Neutrophils (%) (Auto) 71.7 % (45.0-75.0) Lymphocytes (%) (Auto) 13.7 % (20.0-45.0) L Monocytes (%) (Auto) 10.6 % (1.0-10.0) H Eosinophils (%) (Auto) 3.1 % (0.0-3.0) H Basophils (%) (Auto) 0.8 % (0.0-2.0) Sodium Level 140 mEQ/L (135-145) Potassium Level 3.9 mEQ/L (3.4-4.9) Chloride Level 99 mEQ/L (98-107) Carbon Dioxide Level 29 mEQ/L (20-30) Anion Gap 12 (5-15) Blood Urea Nitrogen 26 mg/dL (7-23) H Creatinine 1.4 mg/dL (0.7-1.2) H Estimat Glomerular Filtration Rate mL/min (>60) Glucose Level 125 mg/dL (74-106) #H Calcium Level 10.8 mg/dL (8.6-10.2) H Total Bilirubin 0.5 mg/dL (0.0-1.2) Aspartate Amino Transf (AST/SGOT) 47 U/L (5-40) H Alanine Aminotransferase (ALT/SGPT) 49 U/L (3-41) H Alkaline Phosphatase 341 U/L (40-129) H Total Protein 7.3 g/dL (6.6-8.7) Albumin 4.1 g/dL (3.5-5.2) Globulin 3.2 g/dL Albumin/Globulin Ratio 1.2 (1.0-2.7) Objective General Appearance: WD/WN, no apparent distress, alert EENT: PERRL/EOMI, TMs normal Neck: non-tender, normal alignment, supple, normal inspection Cardiovascular: normal peripheral pulses, normal rate, regular rhythm, no gallop/murmur, no JVD Respiratory/Chest: chest wall non-tender, no respiratory distress, no accessory muscle use, decreased breath sounds, crackles/rales Abdomen: soft, no organomegaly, no mass, decreased bowel sounds, distended Extremities: normal range of motion Neurologic: warp scouring vat tender II-XII grossly normal, no motor/sensory deficits Skin: normal pigmentation, warm/dry Assessment/Plan Problem List: (1) Hypercholesteremia (2) Pain, abdominal Assessment & Plan: See GI note. (3) Elevated liver enzymes (4) Renal failure Assessment & Plan: See nephrology note. (5) HTN (hypertension) Assessment & Plan: Cont norvasc. (6) Diabetes mellitus Assessment & Plan: D/C metformin. Cont novolog sliding scale. (7) Abdominal distention (8) Elevated CEA Assessment & Plan: Await abdominal ultrasound. See GI note. (9) Lung mass Assessment & Plan: ?TB vs neoplasm? Await biopsy and AFB cultures . See onc and pulm note. Followed by ID-continue respiratory isolation. Status: not improved DESMOND JAMES Jan 10, 2017 10:48
--- NOTE | 2017-01-10 10:55 | General Progress Note ---
Assessment/Plan Assessment/Plan ASSESSMENT AND PLAN: 1. Lung nodules, concerning for metastatic disease. --> pending lung v liver biopsy --> chest ct with contrast done, pending final report --> CEA and CA 19-9 is elevated 2. Multiple lung nodules --> rule out fungal infection --> rule out TB, AFB pending, currently on isolation for possible TB 2. Anemia secondary to chronic disease, mild at this time. 3. Abdominal pain, resolved. 4. Renal failure, continue to closely monitor. 5. Lower back pain Subjective Constitutional: Reports: no symptoms HEENT: Reports: no symptoms Cardiovascular: Reports: no symptoms Respiratory: Reports: no symptoms Gastrointestinal/Abdominal: Reports: no symptoms Genitourinary: Reports: no symptoms Neurologic/Psychiatric: Reports: no symptoms Endocrine: Reports: no symptoms Hematologic/Lymphatic: Reports: no symptoms Allergies: Coded Allergies: ATORVASTATIN CALCIUM (Verified Adverse Reaction, MYAGLIA, 08/25/12) SIMVASTATIN (Verified Adverse Reaction, MYALGIA, 08/25/12) Objective Last 24 Hour Vital Signs Date Time Temp Pulse Resp B/P (MAP) Pulse Ox O2 Delivery O2 Flow Rate FiO2 01/10/17 09:17 69 146/73 01/10/17 07:34 83 18 Room Air 01/10/17 04:00 97.7 81 20 135/72 95 Room Air 01/10/17 00:00 98.0 77 17 144/69 94 Room Air 01/09/17 20:00 97.9 80 18 147/63 95 Room Air 01/09/17 19:53 75 18 Room Air 01/09/17 16:00 97.9 76 18 141/62 93 Room Air 01/09/17 12:00 97.7 70 19 148/73 94 Room Air Laboratory Tests 01/10/17 04:35: White Blood Count 7.3, Red Blood Count 4.49L, Hemoglobin 12.9L, Hematocrit 40.4L , Mean Corpuscular Volume 90, Mean Corpuscular Hemoglobin 28.8, Mean Corpuscular Hemoglobin Concent 31.9L, Red Cell Distribution Width 13.5, Platelet Count 219, Mean Platelet Volume 9.9, Neutrophils (%) (Auto) 71.7, Lymphocytes (%) (Auto) 13.7L, Monocytes (%) (Auto) 10.6H, Eosinophils (%) (Auto ) 3.1H, Basophils (%) (Auto) 0.8, Sodium Level 140, Potassium Level 3.9, Chloride Level 99, Carbon Dioxide Level 29, Anion Gap 12, Blood Urea Nitrogen 26H, Creatinine 1.4H, Estimat Glomerular Filtration Rate , Glucose Level 125#H, Calcium Level 10.8H, Total Bilirubin 0.5, Aspartate Amino Transf (AST/SGOT) 47H , Alanine Aminotransferase (ALT/SGPT) 49H, Alkaline Phosphatase 341H, Total Protein 7.3, Albumin 4.1, Globulin 3.2, Albumin/Globulin Ratio 1.2 Height (Feet): 5 Height (Inches): 5.00 Weight (Pounds): 178 General Appearance: no apparent distress Neck: normal inspection Cardiovascular: regular rhythm Respiratory/Chest: no accessory muscle use Abdomen: non tender Yemi Geiger Jan 10, 2017 10:55
--- NOTE | 2017-01-10 11:39 | Pre-Procedure Note/Attestation ---
Pre-Procedure Note/Attestation Complete Prior to Procedure Planned Procedure: not applicable Procedure Narrative: US guided liver biopsy Indications for Procedure Pre-Operative Diagnosis: Liver metastases Attestation I attest that I discussed the nature of the procedure; its benefits; risks and complications; and alternatives (and the risks and benefits of such alternatives ), prior to the procedure, with the patient (or the patient's legal account manager sales representative). I attest that, if there was a reasonable possibility of needing a blood transfusion, the patient (or the patient's legal account manager sales representative) was given the [facility] standardized written summary, pursuant to the Amador Carissa Blood Safety Act ([place] Health and Safety Code # 1645, as amended). I attest that I re-evaluated the patient just prior to the surgery and that there has been no change in the patient's H&P, except as documented below: MICHELLE CALDERÓN M.D. Jan 10, 2017 11:39
--- NOTE | 2017-01-10 11:53 | General Progress Note ---
Assessment/Plan Status: unchanged Status Narrative Cr 1.4 today Assessment/Plan (1) Pulmonary nodule ? Mets- ---High CA-19-9 level (2) Renal failure Cr 1.7 now down to 1.4 today ? Acute on chronic DM and HTN + Proteinuria) (3) Hyperkalemia, K of 5.1 on admit , now normalized (4) Abdominal distention , presentation symptom (5) Diabetes mellitus (6) HTN (hypertension) (7) High Cholestrol Plan: Per consultants- Hydrate- avoid nephrotoxics- Stop Metformin monitor renal parameters pending lung biopsy on isolation for possible TB Subjective ROS Limited/Unobtainable: No Constitutional: Reports: malaise Allergies: Coded Allergies: ATORVASTATIN CALCIUM (Verified Adverse Reaction, MYAGLIA, 08/25/12) SIMVASTATIN (Verified Adverse Reaction, MYALGIA, 08/25/12) Objective Last 24 Hour Vital Signs Date Time Temp Pulse Resp B/P (MAP) Pulse Ox O2 Delivery O2 Flow Rate FiO2 01/10/17 09:17 69 146/73 01/10/17 08:00 97.0 69 18 146/73 95 Room Air 01/10/17 07:34 83 18 Room Air 01/10/17 04:00 97.7 81 20 135/72 95 Room Air 01/10/17 00:00 98.0 77 17 144/69 94 Room Air 01/09/17 20:00 97.9 80 18 147/63 95 Room Air 01/09/17 19:53 75 18 Room Air 01/09/17 16:00 97.9 76 18 141/62 93 Room Air 01/09/17 12:00 97.7 70 19 148/73 94 Room Air Laboratory Tests 01/10/17 04:35: White Blood Count 7.3, Red Blood Count 4.49L, Hemoglobin 12.9L, Hematocrit 40.4L , Mean Corpuscular Volume 90, Mean Corpuscular Hemoglobin 28.8, Mean Corpuscular Hemoglobin Concent 31.9L, Red Cell Distribution Width 13.5, Platelet Count 219, Mean Platelet Volume 9.9, Neutrophils (%) (Auto) 71.7, Lymphocytes (%) (Auto) 13.7L, Monocytes (%) (Auto) 10.6H, Eosinophils (%) (Auto ) 3.1H, Basophils (%) (Auto) 0.8, Sodium Level 140, Potassium Level 3.9, Chloride Level 99, Carbon Dioxide Level 29, Anion Gap 12, Blood Urea Nitrogen 26H, Creatinine 1.4H, Estimat Glomerular Filtration Rate , Glucose Level 125#H, Calcium Level 10.8H, Total Bilirubin 0.5, Aspartate Amino Transf (AST/SGOT) 47H , Alanine Aminotransferase (ALT/SGPT) 49H, Alkaline Phosphatase 341H, Total Protein 7.3, Albumin 4.1, Globulin 3.2, Albumin/Globulin Ratio 1.2, HIV (1&2) Antibody Rapid Negative Height (Feet): 5 Height (Inches): 5.00 Weight (Pounds): 178 General Appearance: no apparent distress Objective no change in PE PAUL GORDILLO Jan 10, 2017 11:53
[2017-01-10] MEDS ORDERED: Lidocaine 1% Plain 30 ml INJ ONE (12:00)
--- NOTE | 2017-01-10 12:01 | Infectious Diseases Prog Note ---
Assessment/Plan Assessment/Plan ASSESSMENT: 76 y/o male with: // Multiple lung nodules most likley metastatic disease , ( doubt TB in view of recent CT findings ) - - elevated CEA, CA 19-9, LDH, left renal nodule - CT A/P: multiple nodules within the visualized portions of the lower lung field. These are suspicious for metastatic neoplasm // Afebrile without leukocytosis // Left kidney hyperdense nodule measuring 1.7 cm r/o malignancy // ARF on CKD3 - improved // Elevated LFTs - improved - CT A/P: liver is nodular and enlarged. Gallbladder wall is prominent. // DM2 - HbA1c 9% // No ABX allergies // Full Code PLAN: - monitor off of ABX for now - biopsy lung vs renal vs liver - f/u sputum AFB, fungal serologies - monitor CBC, temperatures - monitor BMP - monitor CXR - DC airbourne precautions - pending: CrAg, T-spot, Histoplasma, blastomyces, coccidioide Subjective Constitutional: Denies: no symptoms, fever, chills, fatigue, anorexia, drenching sweats, other Allergies: Coded Allergies: ATORVASTATIN CALCIUM (Verified Adverse Reaction, MYAGLIA, 08/25/12) SIMVASTATIN (Verified Adverse Reaction, MYALGIA, 08/25/12) Objective Vital Signs Last 24 Hour Vital Signs Date Time Temp Pulse Resp B/P (MAP) Pulse Ox O2 Delivery O2 Flow Rate FiO2 01/10/17 09:17 69 146/73 01/10/17 08:00 97.0 69 18 146/73 95 Room Air 01/10/17 07:34 83 18 Room Air 01/10/17 04:00 97.7 81 20 135/72 95 Room Air 01/10/17 00:00 98.0 77 17 144/69 94 Room Air 01/09/17 20:00 97.9 80 18 147/63 95 Room Air 01/09/17 19:53 75 18 Room Air 01/09/17 16:00 97.9 76 18 141/62 93 Room Air 01/09/17 12:00 97.7 70 19 148/73 94 Room Air Height (Feet): 5 Height (Inches): 5.00 Weight (Pounds): 178 HEENT: anicteric Respiratory/Chest: normal breath sounds Cardiovascular: regularly irregular Abdomen: non distended Laboratory Tests Test 9/18/17 04:35 White Blood Count 7.3 K/UL (4.8-10.8) Red Blood Count 4.49 M/UL (4.70-6.10) L Hemoglobin 12.9 G/DL (14.2-18.0) L Hematocrit 40.4 % (42.0-52.0) L Mean Corpuscular Volume 90 FL (80-99) Mean Corpuscular Hemoglobin 28.8 PG (27.0-31.0) Mean Corpuscular Hemoglobin Concent 31.9 G/DL (32.0-36.0) L Red Cell Distribution Width 13.5 % (11.6-14.8) Platelet Count 219 K/UL (150-450) Mean Platelet Volume 9.9 FL (6.5-10.1) Neutrophils (%) (Auto) 71.7 % (45.0-75.0) Lymphocytes (%) (Auto) 13.7 % (20.0-45.0) L Monocytes (%) (Auto) 10.6 % (1.0-10.0) H Eosinophils (%) (Auto) 3.1 % (0.0-3.0) H Basophils (%) (Auto) 0.8 % (0.0-2.0) Sodium Level 140 mEQ/L (135-145) Potassium Level 3.9 mEQ/L (3.4-4.9) Chloride Level 99 mEQ/L (98-107) Carbon Dioxide Level 29 mEQ/L (20-30) Anion Gap 12 (5-15) Blood Urea Nitrogen 26 mg/dL (7-23) H Creatinine 1.4 mg/dL (0.7-1.2) H Estimat Glomerular Filtration Rate mL/min (>60) Glucose Level 125 mg/dL (74-106) #H Calcium Level 10.8 mg/dL (8.6-10.2) H Total Bilirubin 0.5 mg/dL (0.0-1.2) Aspartate Amino Transf (AST/SGOT) 47 U/L (5-40) H Alanine Aminotransferase (ALT/SGPT) 49 U/L (3-41) H Alkaline Phosphatase 341 U/L (40-129) H Total Protein 7.3 g/dL (6.6-8.7) Albumin 4.1 g/dL (3.5-5.2) Globulin 3.2 g/dL Albumin/Globulin Ratio 1.2 (1.0-2.7) HIV (1&2) Antibody Rapid Negative (NEGATIVE) Current Medications Medications (Trade) Dose Ordered Sig/Sylvie Route PRN Reason Start Time Stop Time Status Last Admin Dose Admin Acetaminophen (Tylenol) 650 mg Q4H PRN ORAL T>100.5 01/07/17 17:00 02/05/17 16:59 Al Hydroxide/Mg Hydroxide (Mylanta II) 30 ml Q6H PRN ORAL dyspepsia 01/07/17 17:00 02/05/17 16:59 01/10/17 09:16 Albuterol/ Ipratropium (DuoNeb 0.5-3(2.5)mg/3ml) 3 ml Q6H PRN HHN dyspnea 01/07/17 17:00 01/11/17 16:59 Amlodipine Besylate (Norvasc) 10 mg DAILY ORAL 01/08/17 09:00 02/06/17 08:59 01/10/17 09:17 Clonidine HCl (Catapres) 0.1 mg Q4H PRN ORAL SBP>160mmHg 01/07/17 17:00 02/05/17 16:59 Dextrose (Dextrose 50%) STAT PRN IV Hypoglycemia 01/08/17 17:00 02/05/17 16:59 Docusate Sodium (Colace) 100 mg THREE TIMES A DAY ORAL 01/07/17 18:00 02/06/17 12:59 01/10/17 09:15 Gabapentin (Neurontin) 800 mg THREE TIMES A DAY ORAL 01/07/17 18:00 02/05/17 17:59 01/10/17 09:16 Glimepiride (Amaryl) 4 mg BID ORAL 01/09/17 12:30 02/08/17 12:29 01/10/17 09:15 Heparin Sodium (Porcine) (Heparin 5000 units/ml) 5,000 units EVERY 12 HOURS SUBQ 01/07/17 21:00 02/05/17 20:59 01/09/17 21:11 Hydrochlorothiazide (Hydrodiuril) 12.5 mg DAILY ORAL 01/09/17 13:45 02/08/17 13:44 01/10/17 09:17 Insulin Aspart (NovoLOG) BEFORE MEALS AND HS SUBQ 01/07/17 17:00 02/05/17 16:59 Lidocaine HCl (Xylocaine 1% 30ml) 30 ml ONCE ONCE INJ 01/10/17 12:00 01/10/17 12:01 Metformin HCl (Glucophage) 750 mg BID ORAL 01/09/17 12:30 02/08/17 12:29 01/10/17 09:16 Morphine Sulfate (Morphine Sulfate) 1 mg Q4H PRN IVP PAIN 4-10 01/07/17 17:00 01/13/17 16:59 Ondansetron HCl (Zofran) 4 mg Q6H PRN IVP Nausea & Vomiting 01/07/17 17:00 02/05/17 16:59 Polyethylene Glycol (Miralax) 17 gm BEDTIME ORAL 01/07/17 21:00 02/06/17 20:59 01/09/17 20:59 Polyethylene Glycol (Miralax) 17 gm HSPRN PRN ORAL Constipation 01/08/17 21:00 02/05/17 20:59 Ranitidine HCl (Zantac) 300 mg DAILY ORAL 01/09/17 13:45 02/08/17 13:44 01/10/17 09:16 Simethicone (Mylicon) 80 mg QIDPRN PRN ORAL GAS PAIN 01/07/17 17:00 02/06/17 16:59 01/10/17 04:00 Sitagliptin Phosphate (Januvia) 100 mg DAILY ORAL 01/09/17 12:30 02/08/17 12:29 01/09/17 13:24 Tamsulosin HCl (Flomax) 0.4 mg BEDTIME ORAL 01/07/17 21:00 02/05/17 20:59 01/09/17 20:59 Zolpidem Tartrate (Ambien) 5 mg HSPRN PRN ORAL Insomnia 01/07/17 21:00 01/14/17 20:59 JOSE ELIAS URIOSTEGUI M.D. Jan 10, 2017 12:01
--- NOTE | 2017-01-10 13:35 | Diagnostic Imaging Report ---
Indication: MASS liver masses demonstrated on recent CT images Technique: Prior imaging studies reviewed Informed consent obtained prior to commencement of the procedure from patient and his daughter. Procedure timeout performed. Ultrasound used to localize the optimal puncture site. The skin was sterilely prepped and draped. Local anesthesia with 1% lidocaine, both deep and superficial. Under real-time ultrasound guidance, using a subcostal approach, total of 4 needle passes made into dominant right lobe liver lesion. This was done with an 18-gauge automated biopsy gun. Initial biopsy was performed with the use of a 17-gauge coaxial guide. However, due to respiratory motion the guide check getting dislodged from the liver between passes, so subsequent passes were performed without the guide needle. Specimens placed in formalin, submitted to pathology. The patient tolerated the procedure well, without immediate complication. Comparison: None Findings: Intraprocedural images document needle placement within the right lobe liver lesion. Impression: Apparently successful biopsy of right lower under ultrasound guidance, as described
[2017-01-10 15:11] LABS: CRYPTOCOCCAL ANTIGEN SERUM Negative (Negative)
--- NOTE | 2017-01-10 16:03 | Diagnostic Imaging Report ---
Indication: 76-year-old male with liver mass, low back pain, elevated alkaline phosphatase Technique: IV administration 25.5 mCi 99 M technetium MDP. Whole body and spot images were obtained. Comparison: None. Reference made to CT abdomen pelvis 01/06/2017, CT chest 01/07/2017 Findings:No abnormal foci of increased or decreased osseous uptake to suggest hepatic metastases are demonstrated. Normal renal and bladder activity is noted. Mild degenerative changes are seen in the ankles bilaterally. Impression:Negative for evidence of osseous metastases.
--- NOTE | 2017-01-10 16:29 | Diagnostic Imaging Report ---
Indication: ABD PAIN abnormal recent CT and MRI Technique: Bah-scale and duplex images of the upper abdomen were obtained Comparison: Findings: Gallbladder demonstrates wall thickening, gallbladder wall measuring 3 mm thick. This may in part be an artifact of under distention. No definite gallstones. Common bile duct measures 2 mm in diameter. No intrahepatic biliary ductal dilatation. Liver demonstrates diffusely increased echogenicity. A large hypoechoic lesion is seen in the right lobe, measuring 7.2 x 5.3 cm. Portal vein and hepatic veins are patent. Pancreas is unremarkable. Spleen is unremarkable. Left kidney measures 11.6 cm in length. Right kidney measures 11.6 cm length. Both kidneys demonstrate normal echogenicity. There is no hydronephrosis. No focal abnormality . Non-aneurysmal abdominal aorta . Impression: 7.2 x 5.3 cm right lobe liver lesion, presumably corresponding to one of the lesions described on recent CT scans. Most likely a metastatic deposit Mild gallbladder wall thickening. No definite gallstones. Finding is nonspecific, likely an artifact of under distention. Acute acalculous cholecystitis not completely excludable, and consideration should be given to hepatobiliary nuclear imaging if there is high clinical suspicion Negative for dilated ducts
[2017-01-10 17:09] LABS: BLASTOMYCES AB - ID Negative (Neg:<1:1)
--- NOTE | 2017-01-10 18:09 | Pulmonology Progress Note ---
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 borderline high awaiting liver biopsy tumor markers are elevated bone scan reviewed was negative liver biopsy done, pathology pending Subjective ROS Limited/Unobtainable: No Constitutional: Reports: no symptoms HEENT: Repors: no symptoms Respiratory: Reports: no symptoms Allergies: Coded Allergies: ATORVASTATIN CALCIUM (Verified Adverse Reaction, MYAGLIA, 08/25/12) SIMVASTATIN (Verified Adverse Reaction, MYALGIA, 08/25/12) Objective Last 24 Hour Vital Signs Date Time Temp Pulse Resp B/P (MAP) Pulse Ox O2 Delivery O2 Flow Rate FiO2 01/10/17 16:00 98.2 72 18 142/73 94 Room Air 01/10/17 13:45 98.2 74 18 144/74 95 Room Air 01/10/17 13:15 97.5 71 20 136/72 95 Room Air 01/10/17 13:00 97.2 66 20 135/76 96 Room Air 01/10/17 12:45 97.5 72 20 142/73 96 Room Air 01/10/17 12:30 97.5 77 20 140/72 94 Room Air 01/10/17 09:17 69 146/73 01/10/17 08:00 97.0 69 18 146/73 95 Room Air 01/10/17 07:34 83 18 Room Air 01/10/17 04:00 97.7 81 20 135/72 95 Room Air 01/10/17 00:00 98.0 77 17 144/69 94 Room Air 01/09/17 20:00 97.9 80 18 147/63 95 Room Air 01/09/17 19:53 75 18 Room Air Intake and Output 01/10/17 01/11/17 19:00 07:00 Intake Total 320 ml Balance 320 ml Intake Oral 320 ml # Voids 3 # Bowel Movements 1 Objective General Appearance: WD/WN HEENT: normocephalic, atraumatic Respiratory/Chest: chest wall non-tender, lungs clear Cardiovascular: normal peripheral pulses, normal rate Abdomen: normal bowel sounds, soft, non tender Genitourinary: normal external genitalia Extremities: no cyanosis Skin: no rash Neurologic/Psychiatric: clinical social work aide II-XII grossly normal, no motor/sensory deficits HEENT: normocephalic Microbiology Date/Time Source Procedure Growth Status 01/09/17 06:24 Sputum AFB Specimen Processing Tissue - Final Resulted 01/09/17 06:24 Sputum Acid Fast Bacilli Smear - Final Resulted 01/09/17 06:24 Sputum Acid Fast Bacilli Culture Pending Resulted Laboratory Tests 01/10/17 04:35: White Blood Count 7.3, Red Blood Count 4.49L, Hemoglobin 12.9L, Hematocrit 40.4L , Mean Corpuscular Volume 90, Mean Corpuscular Hemoglobin 28.8, Mean Corpuscular Hemoglobin Concent 31.9L, Red Cell Distribution Width 13.5, Platelet Count 219, Mean Platelet Volume 9.9, Neutrophils (%) (Auto) 71.7, Lymphocytes (%) (Auto) 13.7L, Monocytes (%) (Auto) 10.6H, Eosinophils (%) (Auto ) 3.1H, Basophils (%) (Auto) 0.8, Sodium Level 140, Potassium Level 3.9, Chloride Level 99, Carbon Dioxide Level 29, Anion Gap 12, Blood Urea Nitrogen 26H, Creatinine 1.4H, Estimat Glomerular Filtration Rate , Glucose Level 125#H, Calcium Level 10.8H, Total Bilirubin 0.5, Aspartate Amino Transf (AST/SGOT) 47H , Alanine Aminotransferase (ALT/SGPT) 49H, Alkaline Phosphatase 341H, Total Protein 7.3, Albumin 4.1, Globulin 3.2, Albumin/Globulin Ratio 1.2, HIV (1&2) Antibody Rapid Negative Current Medications Medications (Trade) Dose Ordered Sig/Sylvie Route PRN Reason Start Time Stop Time Status Last Admin Dose Admin Acetaminophen (Tylenol) 650 mg Q4H PRN ORAL T>100.5 01/07/17 17:00 02/05/17 16:59 01/10/17 12:40 Al Hydroxide/Mg Hydroxide (Mylanta II) 30 ml Q6H PRN ORAL dyspepsia 01/07/17 17:00 02/05/17 16:59 01/10/17 09:16 Albuterol/ Ipratropium (DuoNeb 0.5-3(2.5)mg/3ml) 3 ml Q6H PRN HHN dyspnea 01/07/17 17:00 01/11/17 16:59 Amlodipine Besylate (Norvasc) 10 mg DAILY ORAL 01/08/17 09:00 02/06/17 08:59 01/10/17 09:17 Clonidine HCl (Catapres) 0.1 mg Q4H PRN ORAL SBP>160mmHg 01/07/17 17:00 02/05/17 16:59 Dextrose (Dextrose 50%) STAT PRN IV Hypoglycemia 01/08/17 17:00 02/05/17 16:59 Docusate Sodium (Colace) 100 mg THREE TIMES A DAY ORAL 01/07/17 18:00 02/06/17 12:59 01/10/17 17:40 Gabapentin (Neurontin) 800 mg THREE TIMES A DAY ORAL 01/07/17 18:00 02/05/17 17:59 01/10/17 17:41 Glimepiride (Amaryl) 4 mg BID ORAL 01/09/17 12:30 02/08/17 12:29 01/10/17 09:15 Heparin Sodium (Porcine) (Heparin 5000 units/ml) 5,000 units EVERY 12 HOURS SUBQ 01/07/17 21:00 02/05/17 20:59 01/09/17 21:11 Hydrochlorothiazide (Hydrodiuril) 12.5 mg DAILY ORAL 01/09/17 13:45 02/08/17 13:44 01/10/17 09:17 Insulin Aspart (NovoLOG) BEFORE MEALS AND HS SUBQ 01/07/17 17:00 02/05/17 16:59 Metformin HCl (Glucophage) 750 mg BID ORAL 01/09/17 12:30 02/08/17 12:29 01/10/17 09:16 Morphine Sulfate (Morphine Sulfate) 1 mg Q4H PRN IVP PAIN 4-10 01/07/17 17:00 01/13/17 16:59 Ondansetron HCl (Zofran) 4 mg Q6H PRN IVP Nausea & Vomiting 01/07/17 17:00 02/05/17 16:59 Polyethylene Glycol (Miralax) 17 gm BEDTIME ORAL 01/07/17 21:00 02/06/17 20:59 01/09/17 20:59 Polyethylene Glycol (Miralax) 17 gm HSPRN PRN ORAL Constipation 01/08/17 21:00 02/05/17 20:59 Ranitidine HCl (Zantac) 300 mg DAILY ORAL 01/09/17 13:45 02/08/17 13:44 01/10/17 09:16 Simethicone (Mylicon) 80 mg QIDPRN PRN ORAL GAS PAIN 01/07/17 17:00 02/06/17 16:59 01/10/17 04:00 Sitagliptin Phosphate (Januvia) 100 mg DAILY ORAL 01/09/17 12:30 02/08/17 12:29 01/09/17 13:24 Tamsulosin HCl (Flomax) 0.4 mg BEDTIME ORAL 01/07/17 21:00 02/05/17 20:59 01/09/17 20:59 Zolpidem Tartrate (Ambien) 5 mg HSPRN PRN ORAL Insomnia 01/07/17 21:00 01/14/17 20:59 ANURADHA IYER Jan 10, 2017 18:09
[2017-01-10] MEDS: Tamsulosin 0.4mg cap ORAL SCH (20:33)
[2017-01-10] MEDS: Miralax 17gm pkt ORAL SCH (20:34)
[2017-01-11] MEDS: Simethicone 80mg tab ORAL PRN ×2 (03:59→12:23)
[2017-01-11 04:00] VITALS: BP 146/66
[2017-01-11] MEDS: NovoLOG Insulin Flexpen SUBQ SCH ×3 (06:09→16:13)
[2017-01-11 06:30] LABS: BASOPHILS % (AUTO) 0.7 % (0.0-2.0); EOSINOPHILS % (AUTO) 4.2 % (0.0-3.0); LYMPHOCYTES % (AUTO) 13.1 % (20.0-45.0); MEAN CORPUSCULAR HEMOGLOBIN 28.1 PG (27.0-31.0); MEAN CORPUSCULAR HGB CONC 31.3 G/DL (32.0-36.0); MEAN CORPUSCULAR VOLUME 90 FL (80-99); MEAN PLATELET VOLUME 9.2 FL (6.5-10.1); NEUTROPHILS % (AUTO) 72.1 % (45.0-75.0); PLATELET COUNT 215 K/UL (150-450); RED CELL DISTRIBUTION WIDTH 13.3 % (11.6-14.8); WHITE BLOOD COUNT 8.1 K/UL (4.8-10.8)
[2017-01-11 06:35] LABS: ALANINE AMINOTRANSFERASE 64 U/L (3-41); ALBUMIN/GLOBULIN RATIO 1.3 (1.0-2.7); ANION GAP 14 (5-15); ASPARTATE AMINO TRANSFERASE 67 U/L (5-40); CALCIUM 9.1 mg/dL (8.6-10.2); CARBON DIOXIDE 28 mEQ/L (20-30); CHLORIDE 97 mEQ/L (98-107); HEMOLYSIS 2; POTASSIUM 3.8 mEQ/L (3.4-4.9); SODIUM 139 mEQ/L (135-145); TOTAL PROTEIN 7.3 g/dL (6.6-8.7)
[2017-01-11 07:03] LABS: CREATININE 1.3 mg/dL (0.7-1.2)
[2017-01-11 08:00] VITALS: BP 143/70
[2017-01-11 08:05] LABS: NIL (NEG) CONTROL SPOT COUNT 1 (0-9); PANEL A SPOT COUNT 6; PANEL B SPOT COUNT 5; POSITIVE CONTROL SPOT COUNT > 20; T SPOT TB BORDERLINE
[2017-01-11] MEDS: Glimepiride 4mg tab ORAL SCH ×2 (08:34→18:29)
[2017-01-11] MEDS: metFORMIN 500mg tab ORAL SCH ×3 (08:35→18:29)
[2017-01-11] MEDS: Docusate 100mg cap ORAL SCH ×3 (08:37→18:29)
[2017-01-11] MEDS: Heparin 5000 units/ml inj SUBQ SCH (08:39)
--- NOTE | 2017-01-11 10:58 | General Progress Note ---
Assessment/Plan Status: stable Status Narrative Cr 1.3 Assessment/Plan (1) Pulmonary nodule ? Mets- ---High CA-19-9 level (2) Renal failure Cr 1.7 now down to 1.4 today ? Acute on chronic DM and HTN + Proteinuria) (3) Hyperkalemia, K of 5.1 on admit , now normalized (4) Abdominal distention , presentation symptom (5) Diabetes mellitus (6) HTN (hypertension) (7) High Cholestrol Plan: Per consultants- Hydrate- avoid nephrotoxics- Stop Metformin monitor renal parameters pending lung biopsy OFF isolation for possible TB Subjective ROS Limited/Unobtainable: No Constitutional: Reports: malaise Allergies: Coded Allergies: ATORVASTATIN CALCIUM (Verified Adverse Reaction, MYAGLIA, 08/25/12) SIMVASTATIN (Verified Adverse Reaction, MYALGIA, 08/25/12) Objective Last 24 Hour Vital Signs Date Time Temp Pulse Resp B/P (MAP) Pulse Ox O2 Delivery O2 Flow Rate FiO2 01/11/17 08:46 71 18 Room Air 01/11/17 08:36 75 143/70 01/11/17 08:00 96.4 75 20 143/70 92 Room Air 01/11/17 05:01 97.5 01/11/17 04:00 97.2 75 20 146/66 94 Room Air 01/10/17 23:59 97.5 79 20 134/73 97 Room Air 01/10/17 20:00 97.7 66 20 153/66 97 Room Air 01/10/17 19:10 85 18 Room Air 01/10/17 16:00 98.2 72 18 142/73 94 Room Air 01/10/17 13:45 98.2 74 18 144/74 95 Room Air 01/10/17 13:15 97.5 71 20 136/72 95 Room Air 01/10/17 13:00 97.2 66 20 135/76 96 Room Air 01/10/17 12:45 97.5 72 20 142/73 96 Room Air 01/10/17 12:30 97.5 77 20 140/72 94 Room Air Laboratory Tests 01/11/17 05:15: White Blood Count 8.1, Red Blood Count 4.60L, Hemoglobin 12.9L, Hematocrit 41.4L , Mean Corpuscular Volume 90, Mean Corpuscular Hemoglobin 28.1, Mean Corpuscular Hemoglobin Concent 31.3L, Red Cell Distribution Width 13.3, Platelet Count 215, Mean Platelet Volume 9.2, Neutrophils (%) (Auto) 72.1, Lymphocytes (%) (Auto) 13.1L, Monocytes (%) (Auto) 10.0, Eosinophils (%) (Auto) 4.2H, Basophils (%) (Auto) 0.7, Sodium Level 139, Potassium Level 3.8, Chloride Level 97L, Carbon Dioxide Level 28, Anion Gap 14, Blood Urea Nitrogen 26H, Creatinine 1.3H, Estimat Glomerular Filtration Rate , Glucose Level 90, Calcium Level 9.1, Phosphorus Level 3.0, Magnesium Level 2.0, Total Bilirubin 0.6, Aspartate Amino Transf (AST/SGOT) 67H, Alanine Aminotransferase (ALT/SGPT) 64H, Alkaline Phosphatase 351H, Total Protein 7.3, Albumin 4.2, Globulin 3.1, Albumin /Globulin Ratio 1.3 Height (Feet): 5 Height (Inches): 5.00 Weight (Pounds): 178 General Appearance: no apparent distress Objective no change in PE PAUL GORDILLO Jan 11, 2017 10:58
[2017-01-11 12:00] VITALS: BP 143/68
--- NOTE | 2017-01-11 13:00 | GI Progress Note ---
Assessment/Plan Problems: (1) Lung mass ICD Codes: R91.8 - Other nonspecific abnormal finding of lung field SNOMED: 178851517 (2) Elevated liver enzymes ICD Codes: R74.8 - Abnormal levels of other serum enzymes SNOMED: 716425797, 249648441 (3) Pain, abdominal ICD Codes: R10.9 - Unspecified abdominal pain SNOMED: 58873229 (4) Metastatic lung cancer (metastasis from lung to other site) ICD Codes: C34.90 - Malignant neoplasm of unspecified part of unspecified bronchus or lung SNOMED: 829429002, 78604499 (5) Diabetes ICD Codes: E11.9 - Type 2 diabetes mellitus without complications SNOMED: 79497881 (6) High serum carbohydrate antigen 19-9 (CA19-9) ICD Codes: R79.89 - Other specified abnormal findings of blood chemistry SNOMED: 910496598, 299241481 (7) Elevated CEA ICD Codes: R97.0 - Elevated carcinoembryonic antigen [CEA] SNOMED: 89867379, 527668966 (8) GERD (gastroesophageal reflux disease) ICD Codes: K21.9 - Gastro-esophageal reflux disease without esophagitis SNOMED: 311825719 (9) Diabetes mellitus ICD Codes: E11.9 - Type 2 diabetes mellitus without complications SNOMED: 18986785 (10) Abdominal distention ICD Codes: R14.0 - Abdominal distension (gaseous) SNOMED: 02880810 Status: unchanged Status Narrative Discussed with Dr. March. Assessment/Plan CT AP reviewed >> multiple lung nodules. hypertrophic prostate. hiatal hernia , see full report. elevated CEA 5.5 elevated CA19-9 >> 70 s/p colonoscopy at [facility] approx 3 years ago >> will obtain records airborne isolation DC bone scan unremarkable fu onc recs pending liver bx results bowel regime >> colace + miralax simethicone prn, will add lactobacillus renal DM diet after studies ppi fu labs GI procedures on hold for now Subjective Gastrointestinal/Abdominal: Reports: abdomen distended, abdominal pain Subjective abdominal bloating Objective Last 24 Hour Vital Signs Date Time Temp Pulse Resp B/P (MAP) Pulse Ox O2 Delivery O2 Flow Rate FiO2 01/11/17 12:00 96.6 68 20 143/68 98 Room Air 01/11/17 08:46 71 18 Room Air 01/11/17 08:36 75 143/70 01/11/17 08:00 96.4 75 20 143/70 92 Room Air 01/11/17 05:01 97.5 01/11/17 04:00 97.2 75 20 146/66 94 Room Air 01/10/17 23:59 97.5 79 20 134/73 97 Room Air 01/10/17 20:00 97.7 66 20 153/66 97 Room Air 01/10/17 19:10 85 18 Room Air 01/10/17 16:00 98.2 72 18 142/73 94 Room Air 01/10/17 13:45 98.2 74 18 144/74 95 Room Air 01/10/17 13:15 97.5 71 20 136/72 95 Room Air 01/10/17 13:00 97.2 66 20 135/76 96 Room Air Laboratory Tests Test 01/11/17 05:15 White Blood Count 8.1 K/UL (4.8-10.8) Red Blood Count 4.60 M/UL (4.70-6.10) L Hemoglobin 12.9 G/DL (14.2-18.0) L Hematocrit 41.4 % (42.0-52.0) L Mean Corpuscular Volume 90 FL (80-99) Mean Corpuscular Hemoglobin 28.1 PG (27.0-31.0) Mean Corpuscular Hemoglobin Concent 31.3 G/DL (32.0-36.0) L Red Cell Distribution Width 13.3 % (11.6-14.8) Platelet Count 215 K/UL (150-450) Mean Platelet Volume 9.2 FL (6.5-10.1) Neutrophils (%) (Auto) 72.1 % (45.0-75.0) Lymphocytes (%) (Auto) 13.1 % (20.0-45.0) L Monocytes (%) (Auto) 10.0 % (1.0-10.0) Eosinophils (%) (Auto) 4.2 % (0.0-3.0) H Basophils (%) (Auto) 0.7 % (0.0-2.0) Sodium Level 139 mEQ/L (135-145) Potassium Level 3.8 mEQ/L (3.4-4.9) Chloride Level 97 mEQ/L (98-107) L Carbon Dioxide Level 28 mEQ/L (20-30) Anion Gap 14 (5-15) Blood Urea Nitrogen 26 mg/dL (7-23) H Creatinine 1.3 mg/dL (0.7-1.2) H Estimat Glomerular Filtration Rate mL/min (>60) Glucose Level 90 mg/dL (74-106) Calcium Level 9.1 mg/dL (8.6-10.2) Phosphorus Level 3.0 mg/dL (2.5-4.8) Magnesium Level 2.0 mg/dL (1.7-2.5) Total Bilirubin 0.6 mg/dL (0.0-1.2) Aspartate Amino Transf (AST/SGOT) 67 U/L (5-40) H Alanine Aminotransferase (ALT/SGPT) 64 U/L (3-41) H Alkaline Phosphatase 351 U/L (40-129) H Total Protein 7.3 g/dL (6.6-8.7) Albumin 4.2 g/dL (3.5-5.2) Globulin 3.1 g/dL Albumin/Globulin Ratio 1.3 (1.0-2.7) Height (Feet): 5 Height (Inches): 5.00 Weight (Pounds): 178 General Appearance: no apparent distress, alert, overweight Cardiovascular: normal rate Respiratory/Chest: normal breath sounds, no respiratory distress Abdominal Exam: normal bowel sounds, non tender, soft, distended Extremities: normal range of motion Janie Gregg N.P. Jan 11, 2017 13:00
[2017-01-11] MEDS: Lactobacillus-GG tablet ORAL SCH ×2 (14:02→18:29)
[2017-01-11 16:00] VITALS: BP 125/58
--- NOTE | 2017-01-11 18:20 | Infectious Diseases Prog Note ---
Assessment/Plan Assessment/Plan ASSESSMENT: 76 y/o male with: // Multiple lung nodules most likley metastatic disease , ( doubt TB in view of recent CT findings ) - AFB x 2 neg - elevated CEA, CA 19-9, LDH, left renal nodule - CT A/P: multiple nodules within the visualized portions of the lower lung field. These are suspicious for metastatic neoplasm // Afebrile without leukocytosis // Negative : CrAg, T-spot,, Blastomyces, // Left kidney hyperdense nodule measuring 1.7 cm r/o malignancy // ARF on CKD3 - improved // Elevated LFTs - and liver lesions :SP Bx 01/10 - CT A/P: liver is nodular and enlarged. Gallbladder wall is prominent. - US : 7.2 x 5.3 cm right lobe liver lesion, presumably corresponding to one of the lesions described on recent CT scans. // DM2 - HbA1c 9% // No ABX allergies // Full Code PLAN: - monitor off of ABX for now - monitor CBC, temperatures - monitor BMP - monitor CXR - DC airbourne precautions - pending: Histoplasma,, coccidioide - pending liver bx results Subjective Constitutional: Denies: no symptoms, fever, chills, fatigue, anorexia, drenching sweats, other Allergies: Coded Allergies: ATORVASTATIN CALCIUM (Verified Adverse Reaction, MYAGLIA, 08/25/12) SIMVASTATIN (Verified Adverse Reaction, MYALGIA, 08/25/12) Objective Vital Signs Last 24 Hour Vital Signs Date Time Temp Pulse Resp B/P (MAP) Pulse Ox O2 Delivery O2 Flow Rate FiO2 01/11/17 16:00 98.1 73 18 125/58 96 Room Air 01/11/17 12:00 96.6 68 20 143/68 98 Room Air 01/11/17 08:46 71 18 Room Air 01/11/17 08:36 75 143/70 01/11/17 08:00 96.4 75 20 143/70 92 Room Air 01/11/17 05:01 97.5 01/11/17 04:00 97.2 75 20 146/66 94 Room Air 01/10/17 23:59 97.5 79 20 134/73 97 Room Air 01/10/17 20:00 97.7 66 20 153/66 97 Room Air 01/10/17 19:10 85 18 Room Air Height (Feet): 5 Height (Inches): 5.00 Weight (Pounds): 178 HEENT: anicteric Respiratory/Chest: no respiratory distress Cardiovascular: regular rhythm Abdomen: no organomegaly Microbiology Date/Time Source Procedure Growth Status 01/10/17 05:50 Sputum AFB Specimen Processing Tissue - Final Resulted 01/10/17 05:50 Sputum Acid Fast Bacilli Smear - Final Resulted 01/10/17 05:50 Sputum Acid Fast Bacilli Culture Pending Resulted 01/09/17 06:24 Sputum AFB Specimen Processing Tissue - Final Resulted 01/09/17 06:24 Sputum Acid Fast Bacilli Smear - Final Resulted 01/09/17 06:24 Sputum Acid Fast Bacilli Culture Pending Resulted Laboratory Tests Test 01/11/17 05:15 01/11/17 15:30 White Blood Count 8.1 K/UL (4.8-10.8) Red Blood Count 4.60 M/UL (4.70-6.10) L Hemoglobin 12.9 G/DL (14.2-18.0) L Hematocrit 41.4 % (42.0-52.0) L Mean Corpuscular Volume 90 FL (80-99) Mean Corpuscular Hemoglobin 28.1 PG (27.0-31.0) Mean Corpuscular Hemoglobin Concent 31.3 G/DL (32.0-36.0) L Red Cell Distribution Width 13.3 % (11.6-14.8) Platelet Count 215 K/UL (150-450) Mean Platelet Volume 9.2 FL (6.5-10.1) Neutrophils (%) (Auto) 72.1 % (45.0-75.0) Lymphocytes (%) (Auto) 13.1 % (20.0-45.0) L Monocytes (%) (Auto) 10.0 % (1.0-10.0) Eosinophils (%) (Auto) 4.2 % (0.0-3.0) H Basophils (%) (Auto) 0.7 % (0.0-2.0) Sodium Level 139 mEQ/L (135-145) Potassium Level 3.8 mEQ/L (3.4-4.9) Chloride Level 97 mEQ/L (98-107) L Carbon Dioxide Level 28 mEQ/L (20-30) Anion Gap 14 (5-15) Blood Urea Nitrogen 26 mg/dL (7-23) H Creatinine 1.3 mg/dL (0.7-1.2) H Estimat Glomerular Filtration Rate mL/min (>60) Glucose Level 90 mg/dL (74-106) Calcium Level 9.1 mg/dL (8.6-10.2) Phosphorus Level 3.0 mg/dL (2.5-4.8) Magnesium Level 2.0 mg/dL (1.7-2.5) Total Bilirubin 0.6 mg/dL (0.0-1.2) Aspartate Amino Transf (AST/SGOT) 67 U/L (5-40) H Alanine Aminotransferase (ALT/SGPT) 64 U/L (3-41) H Alkaline Phosphatase 351 U/L (40-129) H Total Protein 7.3 g/dL (6.6-8.7) Albumin 4.2 g/dL (3.5-5.2) Globulin 3.1 g/dL Albumin/Globulin Ratio 1.3 (1.0-2.7) M. tuberculosis Complex DNA (PCR) Pending Current Medications Medications (Trade) Dose Ordered Sig/Sylvie Route PRN Reason Start Time Stop Time Status Last Admin Dose Admin Acetaminophen (Tylenol) 650 mg Q4H PRN ORAL T>100.5 01/07/17 17:00 02/05/17 16:59 01/11/17 08:34 Al Hydroxide/Mg Hydroxide (Mylanta II) 30 ml Q6H PRN ORAL dyspepsia 01/07/17 17:00 02/05/17 16:59 01/10/17 09:16 Amlodipine Besylate (Norvasc) 10 mg DAILY ORAL 01/08/17 09:00 02/06/17 08:59 01/11/17 08:36 Clonidine HCl (Catapres) 0.1 mg Q4H PRN ORAL SBP>160mmHg 01/07/17 17:00 02/05/17 16:59 Dextrose (Dextrose 50%) STAT PRN IV Hypoglycemia 01/08/17 17:00 02/05/17 16:59 Docusate Sodium (Colace) 100 mg THREE TIMES A DAY ORAL 01/07/17 18:00 02/06/17 12:59 01/11/17 12:23 Gabapentin (Neurontin) 800 mg THREE TIMES A DAY ORAL 01/07/17 18:00 02/05/17 17:59 01/11/17 12:23 Glimepiride (Amaryl) 4 mg BID ORAL 01/09/17 12:30 02/08/17 12:29 01/11/17 08:34 Heparin Sodium (Porcine) (Heparin 5000 units/ml) 5,000 units EVERY 12 HOURS SUBQ 01/07/17 21:00 02/05/17 20:59 01/11/17 08:39 Hydrochlorothiazide (Hydrodiuril) 12.5 mg DAILY ORAL 01/09/17 13:45 02/08/17 13:44 01/11/17 08:36 Insulin Aspart (NovoLOG) BEFORE MEALS AND HS SUBQ 01/07/17 17:00 02/05/17 16:59 01/10/17 20:29 Lactobacillus Acidophilus (Culturelle) 1 tab THREE TIMES A DAY ORAL 01/11/17 13:30 02/10/17 13:29 01/11/17 14:02 Metformin HCl (Glucophage) 750 mg BID ORAL 01/09/17 12:30 02/08/17 12:29 01/11/17 08:35 Morphine Sulfate (Morphine Sulfate) 1 mg Q4H PRN IVP PAIN 4-10 01/07/17 17:00 01/13/17 16:59 Ondansetron HCl (Zofran) 4 mg Q6H PRN IVP Nausea & Vomiting 01/07/17 17:00 02/05/17 16:59 Polyethylene Glycol (Miralax) 17 gm BEDTIME ORAL 01/07/17 21:00 02/06/17 20:59 01/09/17 20:59 Polyethylene Glycol (Miralax) 17 gm HSPRN PRN ORAL Constipation 01/08/17 21:00 02/05/17 20:59 Ranitidine HCl (Zantac) 300 mg DAILY ORAL 01/09/17 13:45 02/08/17 13:44 01/11/17 08:37 Simethicone (Mylicon) 80 mg QIDPRN PRN ORAL GAS PAIN 01/07/17 17:00 02/06/17 16:59 01/11/17 12:23 Sitagliptin Phosphate (Januvia) 100 mg DAILY ORAL 01/09/17 12:30 02/08/17 12:29 01/09/17 13:24 Tamsulosin HCl (Flomax) 0.4 mg BEDTIME ORAL 01/07/17 21:00 02/05/17 20:59 01/10/17 20:33 Zolpidem Tartrate (Ambien) 5 mg HSPRN PRN ORAL Insomnia 01/07/17 21:00 01/14/17 20:59 JOSE ELIAS URIOSTEGUI M.D. Jan 11, 2017 18:20
--- NOTE | 2017-01-11 19:09 | Internal Med Progress Note ---
Subjective Date of Service: Jan 11, 2017 Physician Name James,Desmond Attending Physician Good Sibley MD Current Medications Medications (Trade) Dose Ordered Sig/Sylvie Route PRN Reason Start Time Stop Time Status Last Admin Dose Admin Acetaminophen (Tylenol) 650 mg Q4H PRN ORAL T>100.5 01/07/17 17:00 02/05/17 16:59 01/11/17 08:34 Al Hydroxide/Mg Hydroxide (Mylanta II) 30 ml Q6H PRN ORAL dyspepsia 01/07/17 17:00 02/05/17 16:59 01/10/17 09:16 Amlodipine Besylate (Norvasc) 10 mg DAILY ORAL 01/08/17 09:00 02/06/17 08:59 01/11/17 08:36 Clonidine HCl (Catapres) 0.1 mg Q4H PRN ORAL SBP>160mmHg 01/07/17 17:00 02/05/17 16:59 Dextrose (Dextrose 50%) STAT PRN IV Hypoglycemia 01/08/17 17:00 02/05/17 16:59 Docusate Sodium (Colace) 100 mg THREE TIMES A DAY ORAL 01/07/17 18:00 02/06/17 12:59 01/11/17 18:29 Gabapentin (Neurontin) 800 mg THREE TIMES A DAY ORAL 01/07/17 18:00 02/05/17 17:59 01/11/17 18:29 Glimepiride (Amaryl) 4 mg BID ORAL 01/09/17 12:30 02/08/17 12:29 01/11/17 18:29 Heparin Sodium (Porcine) (Heparin 5000 units/ml) 5,000 units EVERY 12 HOURS SUBQ 01/07/17 21:00 02/05/17 20:59 01/11/17 08:39 Hydrochlorothiazide (Hydrodiuril) 12.5 mg DAILY ORAL 01/09/17 13:45 02/08/17 13:44 01/11/17 08:36 Insulin Aspart (NovoLOG) BEFORE MEALS AND HS SUBQ 01/07/17 17:00 02/05/17 16:59 01/10/17 20:29 Lactobacillus Acidophilus (Culturelle) 1 tab THREE TIMES A DAY ORAL 01/11/17 13:30 02/10/17 13:29 01/11/17 18:29 Metformin HCl (Glucophage) 750 mg BID ORAL 01/09/17 12:30 02/08/17 12:29 01/11/17 18:29 Morphine Sulfate (Morphine Sulfate) 1 mg Q4H PRN IVP PAIN 4-10 01/07/17 17:00 01/13/17 16:59 Ondansetron HCl (Zofran) 4 mg Q6H PRN IVP Nausea & Vomiting 01/07/17 17:00 02/05/17 16:59 Polyethylene Glycol (Miralax) 17 gm BEDTIME ORAL 01/07/17 21:00 02/06/17 20:59 01/09/17 20:59 Polyethylene Glycol (Miralax) 17 gm HSPRN PRN ORAL Constipation 01/08/17 21:00 02/05/17 20:59 Ranitidine HCl (Zantac) 300 mg DAILY ORAL 01/09/17 13:45 02/08/17 13:44 01/11/17 08:37 Simethicone (Mylicon) 80 mg QIDPRN PRN ORAL GAS PAIN 01/07/17 17:00 02/06/17 16:59 01/11/17 12:23 Sitagliptin Phosphate (Januvia) 100 mg DAILY ORAL 01/09/17 12:30 02/08/17 12:29 01/09/17 13:24 Tamsulosin HCl (Flomax) 0.4 mg BEDTIME ORAL 01/07/17 21:00 02/05/17 20:59 01/10/17 20:33 Zolpidem Tartrate (Ambien) 5 mg HSPRN PRN ORAL Insomnia 01/07/17 21:00 01/14/17 20:59 Allergies: Coded Allergies: ATORVASTATIN CALCIUM (Verified Adverse Reaction, MYAGLIA, 08/25/12) SIMVASTATIN (Verified Adverse Reaction, MYALGIA, 08/25/12) ROS Limited/Unobtainable: No Constitutional: Reports: no symptoms HEENT: Reports: no symptoms Cardiovascular: Reports: no symptoms Respiratory: Reports: no symptoms Gastrointestinal/Abdominal: Reports: abdomen distended, abdominal pain Genitourinary: Reports: no symptoms Neurologic/Psychiatric: Reports: no symptoms Subjective 76 YO M admitted with abdominal pain and bloating. Now lung masses. S/P biopsy of liver mass 01/10/17-await results. Cover for Int Med-Dr Sibley. Objective Last Vital Signs Date Time Temp Pulse Resp B/P (MAP) Pulse Ox O2 Delivery O2 Flow Rate FiO2 01/11/17 16:00 98.1 73 18 125/58 96 Room Air Laboratory Tests Test 01/11/17 05:15 01/11/17 15:30 White Blood Count 8.1 K/UL (4.8-10.8) Red Blood Count 4.60 M/UL (4.70-6.10) L Hemoglobin 12.9 G/DL (14.2-18.0) L Hematocrit 41.4 % (42.0-52.0) L Mean Corpuscular Volume 90 FL (80-99) Mean Corpuscular Hemoglobin 28.1 PG (27.0-31.0) Mean Corpuscular Hemoglobin Concent 31.3 G/DL (32.0-36.0) L Red Cell Distribution Width 13.3 % (11.6-14.8) Platelet Count 215 K/UL (150-450) Mean Platelet Volume 9.2 FL (6.5-10.1) Neutrophils (%) (Auto) 72.1 % (45.0-75.0) Lymphocytes (%) (Auto) 13.1 % (20.0-45.0) L Monocytes (%) (Auto) 10.0 % (1.0-10.0) Eosinophils (%) (Auto) 4.2 % (0.0-3.0) H Basophils (%) (Auto) 0.7 % (0.0-2.0) Sodium Level 139 mEQ/L (135-145) Potassium Level 3.8 mEQ/L (3.4-4.9) Chloride Level 97 mEQ/L (98-107) L Carbon Dioxide Level 28 mEQ/L (20-30) Anion Gap 14 (5-15) Blood Urea Nitrogen 26 mg/dL (7-23) H Creatinine 1.3 mg/dL (0.7-1.2) H Estimat Glomerular Filtration Rate mL/min (>60) Glucose Level 90 mg/dL (74-106) Calcium Level 9.1 mg/dL (8.6-10.2) Phosphorus Level 3.0 mg/dL (2.5-4.8) Magnesium Level 2.0 mg/dL (1.7-2.5) Total Bilirubin 0.6 mg/dL (0.0-1.2) Aspartate Amino Transf (AST/SGOT) 67 U/L (5-40) H Alanine Aminotransferase (ALT/SGPT) 64 U/L (3-41) H Alkaline Phosphatase 351 U/L (40-129) H Total Protein 7.3 g/dL (6.6-8.7) Albumin 4.2 g/dL (3.5-5.2) Globulin 3.1 g/dL Albumin/Globulin Ratio 1.3 (1.0-2.7) M. tuberculosis Complex DNA (PCR) Pending Microbiology Date/Time Source Procedure Growth Status 01/10/17 05:50 Sputum AFB Specimen Processing Tissue - Final Resulted 01/10/17 05:50 Sputum Acid Fast Bacilli Smear - Final Resulted 01/10/17 05:50 Sputum Acid Fast Bacilli Culture Pending Resulted 01/09/17 06:24 Sputum AFB Specimen Processing Tissue - Final Resulted 01/09/17 06:24 Sputum Acid Fast Bacilli Smear - Final Resulted 01/09/17 06:24 Sputum Acid Fast Bacilli Culture Pending Resulted Intake and Output 01/11/17 01/12/17 19:00 07:00 Intake Total 300 ml Balance 300 ml Intake Oral 300 ml # Voids 3 Objective General Appearance: WD/WN, no apparent distress, alert EENT: PERRL/EOMI, TMs normal Neck: non-tender, normal alignment, supple, normal inspection Cardiovascular: normal peripheral pulses, normal rate, regular rhythm, no gallop/murmur, no JVD Respiratory/Chest: chest wall non-tender, no respiratory distress, no accessory muscle use, decreased breath sounds, crackles/rales Abdomen: soft, no organomegaly, no mass, decreased bowel sounds, distended Extremities: normal range of motion Neurologic: brand engineer II-XII grossly normal, no motor/sensory deficits Skin: normal pigmentation, warm/dry Assessment/Plan Problem List: (1) Hypercholesteremia (2) Pain, abdominal Assessment & Plan: See GI note. (3) Elevated liver enzymes Assessment & Plan: S/P liver mass biopsy 01/10/17-await results. (4) Renal failure Assessment & Plan: See nephrology note. (5) HTN (hypertension) Assessment & Plan: Cont norvasc. (6) Diabetes mellitus Assessment & Plan: D/C metformin. Cont novolog sliding scale. (7) Abdominal distention (8) Elevated CEA Assessment & Plan: Await abdominal ultrasound. See GI note. (9) Lung mass Assessment & Plan: ?TB vs neoplasm? Await biopsy and AFB cultures . See onc and pulm note. Followed by ID-continue respiratory isolation. Status: progressing Assessment/Plan Discharge planning DESMOND JAMES Jan 11, 2017 19:09
--- NOTE | 2017-01-11 21:49 | General Progress Note ---
Assessment/Plan Assessment/Plan ASSESSMENT AND PLAN: 1. Lung and liver nodules, concerning for metastatic disease. --> pending liver biopsy --> no osseous mets --> chest ct with contrast done, findings: multiple subcentimeter nodules throughout both lungs. Findings are concerning for disseminated pulmonary metastases, multiple hepatic masses. Most likely represents multiple hepatic metastases. See full report. --> CEA and CA 19-9 is elevated 2. Multiple lung nodules --> rule out fungal infection --> rule out TB, AFB pending, currently on isolation for possible TB 2. Anemia secondary to chronic disease, mild at this time. 3. Abdominal pain, resolved. 4. Renal failure, continue to closely monitor. 5. Lower back pain Subjective Constitutional: Reports: no symptoms HEENT: Reports: no symptoms Cardiovascular: Reports: no symptoms Respiratory: Reports: no symptoms Gastrointestinal/Abdominal: Reports: no symptoms Genitourinary: Reports: no symptoms Neurologic/Psychiatric: Reports: no symptoms Endocrine: Reports: no symptoms Hematologic/Lymphatic: Reports: anemia Allergies: Coded Allergies: ATORVASTATIN CALCIUM (Verified Adverse Reaction, MYAGLIA, 08/25/12) SIMVASTATIN (Verified Adverse Reaction, MYALGIA, 08/25/12) Subjective pending biopsy Objective Last 24 Hour Vital Signs Date Time Temp Pulse Resp B/P (MAP) Pulse Ox O2 Delivery O2 Flow Rate FiO2 01/11/17 20:03 75 18 Room Air 01/11/17 16:00 98.1 73 18 125/58 96 Room Air 01/11/17 12:00 96.6 68 20 143/68 98 Room Air 01/11/17 08:46 71 18 Room Air 01/11/17 08:36 75 143/70 01/11/17 08:00 96.4 75 20 143/70 92 Room Air 01/11/17 05:01 97.5 01/11/17 04:00 97.2 75 20 146/66 94 Room Air 01/10/17 23:59 97.5 79 20 134/73 97 Room Air Intake and Output 01/11/17 01/12/17 19:00 07:00 Intake Total 300 ml Balance 300 ml Intake Oral 300 ml # Voids 3 Laboratory Tests 01/11/17 05:15: White Blood Count 8.1, Red Blood Count 4.60L, Hemoglobin 12.9L, Hematocrit 41.4L , Mean Corpuscular Volume 90, Mean Corpuscular Hemoglobin 28.1, Mean Corpuscular Hemoglobin Concent 31.3L, Red Cell Distribution Width 13.3, Platelet Count 215, Mean Platelet Volume 9.2, Neutrophils (%) (Auto) 72.1, Lymphocytes (%) (Auto) 13.1L, Monocytes (%) (Auto) 10.0, Eosinophils (%) (Auto) 4.2H, Basophils (%) (Auto) 0.7, Sodium Level 139, Potassium Level 3.8, Chloride Level 97L, Carbon Dioxide Level 28, Anion Gap 14, Blood Urea Nitrogen 26H, Creatinine 1.3H, Estimat Glomerular Filtration Rate , Glucose Level 90, Calcium Level 9.1, Phosphorus Level 3.0, Magnesium Level 2.0, Total Bilirubin 0.6, Aspartate Amino Transf (AST/SGOT) 67H, Alanine Aminotransferase (ALT/SGPT) 64H, Alkaline Phosphatase 351H, Total Protein 7.3, Albumin 4.2, Globulin 3.1, Albumin /Globulin Ratio 1.3 01/11/17 15:30: M. 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
[2017-01-11 22:08] LABS: HISTOPLASMA MYCELIAL ID AB Negative (Negative)
--- NOTE | 2017-01-11 22:53 | Pulmonology Progress Note ---
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 borderline high awaiting liver biopsy results tumor markers are elevated bone scan reviewed was negative dc with close f/u with primary Subjective Interval Events: seen earlier Allergies: Coded Allergies: ATORVASTATIN CALCIUM (Verified Adverse Reaction, MYAGLIA, 08/25/12) SIMVASTATIN (Verified Adverse Reaction, MYALGIA, 08/25/12) Objective Last 24 Hour Vital Signs Date Time Temp Pulse Resp B/P (MAP) Pulse Ox O2 Delivery O2 Flow Rate FiO2 01/11/17 20:03 75 18 Room Air 01/11/17 16:00 98.1 73 18 125/58 96 Room Air 01/11/17 12:00 96.6 68 20 143/68 98 Room Air 01/11/17 08:46 71 18 Room Air 01/11/17 08:36 75 143/70 01/11/17 08:00 96.4 75 20 143/70 92 Room Air 01/11/17 05:01 97.5 01/11/17 04:00 97.2 75 20 146/66 94 Room Air 01/10/17 23:59 97.5 79 20 134/73 97 Room Air Intake and Output 01/11/17 01/12/17 19:00 07:00 Intake Total 300 ml Balance 300 ml Intake Oral 300 ml # Voids 3 Objective General Appearance: WD/WN HEENT: normocephalic, atraumatic Respiratory/Chest: chest wall non-tender, lungs clear Cardiovascular: normal peripheral pulses, normal rate Abdomen: normal bowel sounds, soft, non tender Genitourinary: normal external genitalia Extremities: no cyanosis Skin: no rash Neurologic/Psychiatric: government affairs manager II-XII grossly normal, no motor/sensory deficits Microbiology Date/Time Source Procedure Growth Status 01/10/17 05:50 Sputum AFB Specimen Processing Tissue - Final Resulted 01/10/17 05:50 Sputum Acid Fast Bacilli Smear - Final Resulted 01/10/17 05:50 Sputum Acid Fast Bacilli Culture Pending Resulted 01/09/17 06:24 Sputum AFB Specimen Processing Tissue - Final Resulted 01/09/17 06:24 Sputum Acid Fast Bacilli Smear - Final Resulted 01/09/17 06:24 Sputum Acid Fast Bacilli Culture Pending Resulted Laboratory Tests 01/11/17 05:15: White Blood Count 8.1, Red Blood Count 4.60L, Hemoglobin 12.9L, Hematocrit 41.4L , Mean Corpuscular Volume 90, Mean Corpuscular Hemoglobin 28.1, Mean Corpuscular Hemoglobin Concent 31.3L, Red Cell Distribution Width 13.3, Platelet Count 215, Mean Platelet Volume 9.2, Neutrophils (%) (Auto) 72.1, Lymphocytes (%) (Auto) 13.1L, Monocytes (%) (Auto) 10.0, Eosinophils (%) (Auto) 4.2H, Basophils (%) (Auto) 0.7, Sodium Level 139, Potassium Level 3.8, Chloride Level 97L, Carbon Dioxide Level 28, Anion Gap 14, Blood Urea Nitrogen 26H, Creatinine 1.3H, Estimat Glomerular Filtration Rate , Glucose Level 90, Calcium Level 9.1, Phosphorus Level 3.0, Magnesium Level 2.0, Total Bilirubin 0.6, Aspartate Amino Transf (AST/SGOT) 67H, Alanine Aminotransferase (ALT/SGPT) 64H, Alkaline Phosphatase 351H, Total Protein 7.3, Albumin 4.2, Globulin 3.1, Albumin /Globulin Ratio 1.3 01/11/17 15:30: M. tuberculosis Complex DNA (PCR) [Pending] ANURADHA IYER Jan 11, 2017 22:53
--- NOTE | 2017-01-13 13:55 | Discharge Summary ---
Discharge Summary Hospital Course Date of Admission Jan 06, 2017 at 13:20 Date of Discharge Jan 11, 2017 at 20:15 Admitting Diagnosis renal failure, hyperkalemia HPI Doe Kowalski is a 76 year old male who was admitted on Jan 06, 2017 at 13:20 for Renal Failure, Hyperkalemia Hospital Course [id number] Discharge Discharge Disposition Patient was discharged to Home (01) Discharge Diagnoses: Rehana Strong VETERINARIAN ASSISTANT Jan 13, 2017 13:55
--- NOTE | 2017-01-14 06:46 | Discharge Summary 2 SIG ---
DATE OF ADMISSION: 01/06/2017 DATE OF DISCHARGE: 01/11/2017 CONSULTANTS: 1. Pardeep Coelho M.D. 2. Yemi Geiger M.D. 3. Noam Wilde M.D. 4. Praful Delgadillo M.D. 5. Zelalem March M.D. Brief Hospital Course: The patient is a 76-year-old male, who presented to ED complaining of abdominal pain and bloating for two weeks. There was no nausea, vomiting, diarrhea, or constipation. He has past medical history significant for diabetes, hypertension, and hypercholesterolemia. On evaluation at ED, CAT scan of the abdomen and pelvis without contrast showed findings concerning for metastatic disease. Kidney function was elevated, unable to give IV contrast. Potassium was elevated to 5.1. He was given Kayexalate. He was then admitted to telemetry for evaluation of renal failure and hyperkalemia and for metastatic workup. He was continued on his diabetic medication, glimepiride. He was given Trulicity and glimepiride. Metformin was discontinued. He was given Norvasc and benazepril for blood pressure control and continued on Crestor for hyperlipidemia. Tumor markers obtained showed elevated CEA and CA 19-9. The patient had no prior history of malignancy. He was given IV hydration and renal failure improved. He underwent chest CT with contrast, findings showed multiple nodules throughout the lungs concerning for disseminated pulmonary metastasis. He was also placed on respiratory isolation for a possible TB infection. AFB sputums were sent and was negative. Abdominal ultrasound showed a right lobe liver lesion seen on CT scan. Cryptococcus antigen was negative. T-SPOT was negative. _ Blastomyces negative. Histoplasma antibody negative. Cryptococcus antigen negative. He was taken off respiratory isolation. He underwent liver biopsy and bone scan. There was negative evidence of osseous metastasis. Liver biopsy results still pending. The patient was eventually discharged home to follow up as an outpatient regarding the biopsy results. FINAL DIAGNOSES: 1. Pulmonary and liver nodules concerning for metastatic disease. 2. Anemia secondary to chronic disease. 3. Acute on chronic renal failure. 4. Hyperkalemia, resolved. 5. Diabetic and hypertensive nephropathy. 6. Diabetes mellitus with nephropathy. 7. Hypertension. 8. Hypercholesterolemia. 9. Gastroesophageal reflux disease. 10. Elevated liver transaminases. DISCHARGE DISPOSITION: The patient was discharged home. DISCHARGE MEDICATIONS: Refer to medication list. Followup: The patient was advised to follow up regarding the results of the liver ultrasound. Good Sibley M.D. I have been assigned to dictate discharge summary on this account and I was not involved in the patient's management. Rehana Strong N.P. DR: Kennedy JOB#: [id number] CC:
== END 2017-01-11 20:15 | disposition home or self-care (01) | DRG 181 ==
LOC: EMR 12:48 → 2E 13:20 → EDBEDREQ 13:35 → 2E 15:26 → 4W 01-07 15:30
PROC: 0FB13ZX Excision of Right Lobe Liver, Percutaneous Approach, Diagnostic (ICD-10-PCS; principal; 2017-01-10)
DX: C34.90 Malignant neoplasm of unspecified part of unspecified bronchus or lung (principal); C78.7 Secondary malignant neoplasm of liver and intrahepatic bile duct; N17.9 Acute kidney failure, unspecified; E11.22 Type 2 diabetes mellitus with diabetic chronic kidney disease; N18.3 Chronic kidney disease, stage 3 (moderate); E11.65 Type 2 diabetes mellitus with hyperglycemia; E66.01 Morbid (severe) obesity due to excess calories; E87.5 Hyperkalemia; I12.9 Hypertensive chronic kidney disease with stage 1 through stage 4 chronic kidney disease, or unspecified chronic kidney disease; D63.8 Anemia in other chronic diseases classified elsewhere; K21.9 Gastro-esophageal reflux disease without esophagitis; R10.9 Unspecified abdominal pain; R14.0 Abdominal distension (gaseous); E78.00 Pure hypercholesterolemia, unspecified; R97.0 Elevated carcinoembryonic antigen [CEA]; Z88.8 Allergy status to other drugs, medicaments and biological substances; N40.0 Benign prostatic hyperplasia without lower urinary tract symptoms; M54.5 Low back pain
CPT/HCPCS: 36415; 71010; 71260; 74176; 76700; 76942; 78306; 80048; 80053; 80061; 81003; 82378; 82550; 82553; 82728; 82962; 82977; 83036; 83615; 83690; 83735; 83880; 84100; 84153; 84443; 84484; 84550; 85007; 85025; 85060; 85610; 85730; 86140; 86147; 86171; 86301; 86580; 86612; 86635; 86703; 87116; 87449; 87556; 93005; 94664; 99285; J1815